=== PATIENT | male | born 1935 | race Caucasian/White ===

== ENCOUNTER 2016-09-03 09:58 | Outpatient (RCR) | payer MEDICARE ==
--- OUTSIDE RECORDS SUMMARY | 2016-08-27 09:27 | XMS REPORT | Continuity of Care Document ---
Author Author [facility] Organization [facility] Address Unknown Phone Unavailable Care Team Providers Care Healthcare Interpreter Name Role Phone ARIA RAYMUNDO MD PCP Insurance Providers Payer Name Policy Number Subscriber Name Relationship Wps Medicare [id number] Justin English W 18 Self / Same As Patient [employer] [place] Supp [id number] Justin English W 18 Self / Same As Patient Problems No known problems or medical conditions. Medications No known medications. Social History Social History Problem Response Recorded Date/Time Recent Foreign Travel N SEE MIMI 09/27/2014 8:22am Hospital Discharge Instructions No hospital discharge instructions. Plan of Care No plan of care. Functional Status No functional status results. Allergies, Adverse Reactions, Alerts No known allergies. Immunizations No immunization records. Vital Signs No known vital signs results. Results Laboratory Results Test Name Result Units Flags Reference Collection Date/Time Result Date/ Time Comments White Blood Count 6.2 10^3/uL 4.3-11.0 09/27/2014 8:45am 09/27/2014 8: 59am Red Blood Count 5.30 10^6/uL 4.35-5.85 09/27/2014 8:45am 09/27/2014 8: 59am Hemoglobin 16.6 G/DL 13.3-17.7 09/27/2014 8:45am 09/27/2014 8:59am Hematocrit 49 % 40-54 09/27/2014 8:45am 09/27/2014 8:59am Mean Corpuscular Volume 92 FL 80-99 09/27/2014 8:45am 09/27/2014 8: 59am Mean Corpuscular Hemoglobin 31 PG 25-34 09/27/2014 8:45am 09/27/2014 8: 59am Mean Corpuscular Hemoglobin Concent 34 G/DL 32-36 09/27/2014 8:45am 04/2014 8:59am Red Cell Distribution Width 13.2 % 10.0-14.5 09/27/2014 8:45am 2013 8:59am Platelet Count 228 10^3/uL 130-400 09/27/2014 8:45am 09/27/2014 8:59am Mean Platelet Volume 9.0 FL 7.4-10.4 09/27/2014 8:45am 09/27/2014 8: 59am Neutrophils (%) (Auto) 67 % 42-75 09/27/2014 8:45am 09/27/2014 8:59am Lymphocytes (%) (Auto) 19 % 12-44 09/27/2014 8:45am 09/27/2014 8:59am Monocytes (%) (Auto) 11 % 0-12 09/27/2014 8:45am 09/27/2014 8:59am Eosinophils (%) (Auto) 3 % 0-10 09/27/2014 8:45am 09/27/2014 8:59am Basophils (%) (Auto) 1 % 0-10 09/27/2014 8:45am 09/27/2014 8:59am Neutrophils # (Auto) 4.1 X 10^3 1.8-7.8 09/27/2014 8:45am 09/27/2014 8: 59am Lymphocytes # (Auto) 1.2 X 10^3 1.0-4.0 09/27/2014 8:45am 09/27/2014 8: 59am Monocytes # (Auto) 0.7 X 10^3 0.0-1.0 09/27/2014 8:45am 09/27/2014 8: 59am Eosinophils # (Auto) 0.2 10^3/uL 0.0-0.3 09/27/2014 8:45am 09/27/2014 8 :59am Basophils # (Auto) 0.0 10^3/uL 0.0-0.1 09/27/2014 8:45am 09/27/2014 8: 59am Sodium Level 142 MMOL/L 135-145 10/25/2014 9:38am 10/25/2014 10:08am Potassium Level 4.1 MMOL/L 3.6-5.0 10/25/2014 9:38am 10/25/2014 10: 08am Chloride Level 104 MMOL/L 98-107 10/25/2014 9:38am 10/25/2014 10:08am Carbon Dioxide Level 30 MMOL/L 21-32 10/25/2014 9:38am 10/25/2014 10: 08am Blood Urea Nitrogen 12 MG/DL 7-18 10/25/2014 9:38am 10/25/2014 10:08am Creatinine 0.96 MG/DL 0.60-1.30 10/25/2014 9:38am 10/25/2014 10:08am BUN/Creatinine Ratio 13 10/25/2014 9:38am 10/25/2014 10:08am Estimat Glomerular Filtration Rate > 60 10/25/2014 9:38am 2013 10:08am GFR INTERPRETIVE DATA UNITS FOR ESTIMATED GFR (eGFR): mL/min/1.73 M2 REFERENCE RANGE FOR ESTIMATED GFR (eGFR) eGFR NORMAL eGFR >60 MODERATELY DECREASED eGFR 30-59 SEVERLY DECREASED eGFR 15-29 KIDNEY FAILURE <15 (OR DIALYSIS) Glucose Level 164 MG/DL H 70-105 10/25/2014 9:38am 10/25/2014 10:08am Calcium Level 9.2 MG/DL 8.5-10.1 10/25/2014 9:38am 10/25/2014 10:08am Total Bilirubin 0.9 MG/DL 0.1-1.0 10/25/2014 9:38am 10/25/2014 10:08am Alkaline Phosphatase 71 U/L 40-136 10/25/2014 9:38am 10/25/2014 10: 08am Aspartate Amino Transf (AST/SGOT) 24 U/L 5-34 10/25/2014 9:38am 2013 10:08am Alanine Aminotransferase (ALT/SGPT) 28 U/L 0-55 10/25/2014 9:38am 10/25 10:08am Total Protein 6.9 G/DL 6.4-8.2 10/25/2014 9:38am 10/25/2014 10:08am Albumin 4.0 G/DL 3.2-4.5 10/25/2014 9:38am 10/25/2014 10:08am Ferritin 90 NG/ML 25-300 09/27/2014 8:45am 09/28/2014 4:04pm Procedures No known history of procedures. Encounters Encounter Location Date/Time Discharged Recurring Via [facility] 10/25/14 9:28am
[2016-08-27 09:45] LABS: BASOPHILS % (AUTO) 1 % (0-10); EOSINOPHILS # (AUTO) 0.1 10^3/uL (0.0-0.3); EOSINOPHILS % (AUTO) 2 % (0-10); LYMPHOCYTES # (AUTO) 1.1 X 10^3 (1.0-4.0); LYMPHOCYTES % (AUTO) 17 % (12-44); MEAN CORPUSCULAR HEMOGLOBIN 32 PG (25-34); MEAN CORPUSCULAR HGB CONC 35 G/DL (32-36); MEAN CORPUSCULAR VOLUME 91 FL (80-99); MEAN PLATELET VOLUME 8.9 FL (7.4-10.4); MONOCYTES # (AUTO) 0.6 X 10^3 (0.0-1.0); MONOCYTES % (AUTO) 9 % (0-12); NEUTROPHILS # (AUTO) 4.7 X 10^3 (1.8-7.8); NEUTROPHILS % (AUTO) 71 % (42-75); PLATELET COUNT 226 10^3/uL (130-400); RED BLOOD COUNT 5.06 10^6/uL (4.35-5.85); WHITE BLOOD COUNT 6.6 10^3/uL (4.3-11.0)
[2016-08-27 10:41] LABS: ALANINE AMINOTRANSFERASE 30 U/L (0-55); ALBUMIN 4.4 G/DL (3.2-4.5); ANION GAP 11 MMOL/L (5-14); ASPARTATE AMINO TRANSFERASE 23 U/L (5-34); BILIRUBIN,TOTAL 1.4 MG/DL (0.1-1.0); BLOOD UREA NITROGEN 15 MG/DL (7-18); BUN/CREATININE RATIO 16; CALCIUM 9.3 MG/DL (8.5-10.1); CARBON DIOXIDE 20 MMOL/L (21-32); CHLORIDE 109 MMOL/L (98-107); CREATININE SERUM 0.93 MG/DL (0.60-1.30); GFR ESTIMATED > 60; GLUCOSE 132 MG/DL (70-105); SODIUM 140 MMOL/L (135-145); TOTAL PROTEIN 7.2 G/DL (6.4-8.2)
== END 2016-11-25 | disposition home or self-care (01) ==
LOC: ONC 09:58
PROVIDERS: ATTEND Internal Medicine Hematology & Oncology
DX: E83.119 Hemochromatosis, unspecified (principal)
CPT/HCPCS: 80053; 82728; 85025; 99195; 99213

== ENCOUNTER 2017-03-04 09:53 | Outpatient (RCR) | payer MEDICARE ==
[2017-02-25 09:33] LABS: BASOPHILS % (AUTO) 1 % (0-10); EOSINOPHILS # (AUTO) 0.2 10^3/uL (0.0-0.3); EOSINOPHILS % (AUTO) 3 % (0-10); LYMPHOCYTES # (AUTO) 1.3 X 10^3 (1.0-4.0); LYMPHOCYTES % (AUTO) 21 % (12-44); MEAN CORPUSCULAR HEMOGLOBIN 32 PG (25-34); MEAN CORPUSCULAR HGB CONC 35 G/DL (32-36); MEAN CORPUSCULAR VOLUME 92 FL (80-99); MEAN PLATELET VOLUME 9.2 FL (7.4-10.4); MONOCYTES # (AUTO) 0.7 X 10^3 (0.0-1.0); MONOCYTES % (AUTO) 10 % (0-12); NEUTROPHILS # (AUTO) 4.1 X 10^3 (1.8-7.8); NEUTROPHILS % (AUTO) 65 % (42-75); PLATELET COUNT 221 10^3/uL (130-400); RED BLOOD COUNT 5.31 10^6/uL (4.35-5.85); RED CELL DISTRIBUTION WIDTH 13.5 % (10.0-14.5); WHITE BLOOD COUNT 6.4 10^3/uL (4.3-11.0)
[2017-02-25 10:16] LABS: ALANINE AMINOTRANSFERASE 28 U/L (0-55); ALBUMIN 4.3 G/DL (3.2-4.5); ANION GAP 8 MMOL/L (5-14); ASPARTATE AMINO TRANSFERASE 24 U/L (5-34); BILIRUBIN,TOTAL 1.2 MG/DL (0.1-1.0); BLOOD UREA NITROGEN 18 MG/DL (7-18); BUN/CREATININE RATIO 19; CALCIUM 9.2 MG/DL (8.5-10.1); CARBON DIOXIDE 26 MMOL/L (21-32); CHLORIDE 107 MMOL/L (98-107); CREATININE SERUM 0.94 MG/DL (0.60-1.30); GFR ESTIMATED > 60; GLUCOSE 136 MG/DL (70-105); POTASSIUM 4.3 MMOL/L (3.6-5.0); SODIUM 141 MMOL/L (135-145); TOTAL PROTEIN 7.3 G/DL (6.4-8.2)
== END 2017-05-26 | disposition home or self-care (01) ==
LOC: ONC 09:53
PROVIDERS: ATTEND Internal Medicine Hematology & Oncology
DX: E83.119 Hemochromatosis, unspecified (principal)
CPT/HCPCS: 36415; 80053; 82728; 85025; 99195; 99213

== ENCOUNTER → 2017-08-26 | Outpatient (CLI) | payer MEDICARE ==
[2017-08-26 09:50] LABS: THYROID STIMULATING HORMONE 2.01 UIU/ML (0.35-4.94)
== END ==
LOC: ONC 08:54
PROVIDERS: ATTEND Family Medicine
DX: Z79.899 Other long term (current) drug therapy; I10 Essential (primary) hypertension; E83.119 Hemochromatosis, unspecified
CPT/HCPCS: 80061; 83036; 84443

== ENCOUNTER 2017-09-02 10:45 | Outpatient (RCR) | payer MEDICARE ==
[2017-08-26 09:07] LABS: BASOPHILS # (AUTO) 0.1 10^3/uL (0.0-0.1); BASOPHILS % (AUTO) 1 % (0-10); EOSINOPHILS # (AUTO) 0.3 10^3/uL (0.0-0.3); EOSINOPHILS % (AUTO) 3 % (0-10); HEMATOCRIT 46 % (40-54); HEMOGLOBIN 15.6 G/DL (13.3-17.7); LYMPHOCYTES # (AUTO) 1.1 X 10^3 (1.0-4.0); LYMPHOCYTES % (AUTO) 13 % (12-44); MEAN CORPUSCULAR HEMOGLOBIN 31 PG (25-34); MEAN CORPUSCULAR HGB CONC 34 G/DL (32-36); MEAN CORPUSCULAR VOLUME 92 FL (80-99); MEAN PLATELET VOLUME 9.1 FL (7.4-10.4); MONOCYTES # (AUTO) 0.7 X 10^3 (0.0-1.0); MONOCYTES % (AUTO) 8 % (0-12); NEUTROPHILS # (AUTO) 6.5 X 10^3 (1.8-7.8); NEUTROPHILS % (AUTO) 75 % (42-75); PLATELET COUNT 257 10^3/uL (130-400); RED CELL DISTRIBUTION WIDTH 12.7 % (10.0-14.5); WHITE BLOOD COUNT 8.6 10^3/uL (4.3-11.0)
[2017-08-26 09:31] LABS: ALANINE AMINOTRANSFERASE 22 U/L (0-55); ALBUMIN 4.1 GM/DL (3.2-4.5); ALKALINE PHOSPHATASE 106 U/L (40-136); BUN/CREATININE RATIO 16; CALCIUM 9.3 MG/DL (8.5-10.1); CARBON DIOXIDE 26 MMOL/L (21-32); CHLORIDE 106 MMOL/L (98-107); CREATININE SERUM 0.92 MG/DL (0.60-1.30); GFR ESTIMATED > 60; GLUCOSE 146 MG/DL (70-105); SODIUM 140 MMOL/L (135-145); TOTAL PROTEIN 7.9 GM/DL (6.4-8.2)
== END 2017-11-24 | disposition home or self-care (01) ==
LOC: ONC 10:45
PROVIDERS: ATTEND Internal Medicine Hematology & Oncology
DX: E83.119 Hemochromatosis, unspecified (principal)
CPT/HCPCS: 36415; 80053; 82728; 85025; 99195

== ENCOUNTER → 2018-02-24 | Outpatient (CLI) | payer MEDICARE | LOC: LAB 09:09 | PROVIDERS: ATTEND Family Medicine | DX: E03.9 Hypothyroidism, unspecified (principal); R73.09 Other abnormal glucose | CPT/HCPCS: 36415; 83036; 84443 ==

== ENCOUNTER 2018-03-03 09:47 | Outpatient (RCR) | payer MEDICARE ==
[2018-02-24 10:17] LABS: BASOPHILS # (AUTO) 0.1 10^3/uL (0.0-0.1); BASOPHILS % (AUTO) 1 % (0-10); EOSINOPHILS # (AUTO) 0.2 10^3/uL (0.0-0.3); EOSINOPHILS % (AUTO) 3 % (0-10); HEMATOCRIT 47 % (40-54); HEMOGLOBIN 16.3 G/DL (13.3-17.7); LYMPHOCYTES # (AUTO) 1.2 X 10^3 (1.0-4.0); LYMPHOCYTES % (AUTO) 17 % (12-44); MEAN CORPUSCULAR HEMOGLOBIN 32 PG (25-34); MEAN CORPUSCULAR HGB CONC 35 G/DL (32-36); MEAN CORPUSCULAR VOLUME 92 FL (80-99); MEAN PLATELET VOLUME 9.5 FL (7.4-10.4); MONOCYTES # (AUTO) 0.7 X 10^3 (0.0-1.0); MONOCYTES % (AUTO) 9 % (0-12); NEUTROPHILS # (AUTO) 4.9 X 10^3 (1.8-7.8); NEUTROPHILS % (AUTO) 70 % (42-75); PLATELET COUNT 240 10^3/uL (130-400); RED BLOOD COUNT 5.06 10^6/uL (4.35-5.85); RED CELL DISTRIBUTION WIDTH 12.7 % (10.0-14.5); WHITE BLOOD COUNT 6.9 10^3/uL (4.3-11.0)
[2018-02-24 10:44] LABS: ALANINE AMINOTRANSFERASE 24 U/L (0-55); ALBUMIN 4.4 GM/DL (3.2-4.5); ALKALINE PHOSPHATASE 84 U/L (40-136); BUN/CREATININE RATIO 15; CALCIUM 9.5 MG/DL (8.5-10.1); CARBON DIOXIDE 24 MMOL/L (21-32); CHLORIDE 107 MMOL/L (98-107); CREATININE SERUM 0.84 MG/DL (0.60-1.30); GFR ESTIMATED > 60; GLUCOSE 142 MG/DL (70-105); POTASSIUM 4.1 MMOL/L (3.6-5.0); SODIUM 141 MMOL/L (135-145); TOTAL PROTEIN 7.6 GM/DL (6.4-8.2)
== END 2018-05-25 | disposition home or self-care (01) ==
LOC: ONC 09:47
PROVIDERS: ATTEND Internal Medicine Hematology & Oncology
DX: E83.119 Hemochromatosis, unspecified (principal)
CPT/HCPCS: 36415; 80053; 82728; 85025; 99213

== ENCOUNTER 2018-09-08 09:57 | Outpatient (RCR) | payer MEDICARE ==
[2018-09-01 09:16] LABS: BASOPHILS # (AUTO) 0.1 10^3/uL (0.0-0.1); BASOPHILS % (AUTO) 1 % (0-10); EOSINOPHILS # (AUTO) 0.2 10^3/uL (0.0-0.3); EOSINOPHILS % (AUTO) 3 % (0-10); HEMATOCRIT 45 % (40-54); HEMOGLOBIN 15.5 G/DL (13.3-17.7); LYMPHOCYTES # (AUTO) 1.2 X 10^3 (1.0-4.0); LYMPHOCYTES % (AUTO) 17 % (12-44); MEAN CORPUSCULAR HEMOGLOBIN 32 PG (25-34); MEAN CORPUSCULAR HGB CONC 35 G/DL (32-36); MEAN CORPUSCULAR VOLUME 92 FL (80-99); MEAN PLATELET VOLUME 8.8 FL (7.4-10.4); MONOCYTES # (AUTO) 0.7 X 10^3 (0.0-1.0); MONOCYTES % (AUTO) 10 % (0-12); NEUTROPHILS # (AUTO) 4.7 X 10^3 (1.8-7.8); NEUTROPHILS % (AUTO) 70 % (42-75); PLATELET COUNT 248 10^3/uL (130-400); RED BLOOD COUNT 4.86 10^6/uL (4.35-5.85); RED CELL DISTRIBUTION WIDTH 12.8 % (10.0-14.5); WHITE BLOOD COUNT 6.8 10^3/uL (4.3-11.0)
[2018-09-01 09:40] LABS: ALANINE AMINOTRANSFERASE 19 U/L (0-55); ALBUMIN 4.4 GM/DL (3.2-4.5); ALKALINE PHOSPHATASE 87 U/L (40-136); BILIRUBIN,TOTAL 1.1 MG/DL (0.1-1.0); BUN/CREATININE RATIO 18; CALCIUM 9.3 MG/DL (8.5-10.1); CARBON DIOXIDE 23 MMOL/L (21-32); CHLORIDE 107 MMOL/L (98-107); CREATININE SERUM 0.84 MG/DL (0.60-1.30); GFR ESTIMATED > 60; GLUCOSE 128 MG/DL (70-105); POTASSIUM 3.8 MMOL/L (3.6-5.0); SODIUM 140 MMOL/L (135-145); TOTAL PROTEIN 7.6 GM/DL (6.4-8.2)
== END 2018-11-30 | disposition home or self-care (01) ==
LOC: ONC 09:57
PROVIDERS: ATTEND Internal Medicine Hematology & Oncology
DX: E83.110 Hereditary hemochromatosis (principal); I10 Essential (primary) hypertension; E78.00 Pure hypercholesterolemia, unspecified; E11.9 Type 2 diabetes mellitus without complications; K58.9 Irritable bowel syndrome, unspecified; M19.91 Primary osteoarthritis, unspecified site; Z79.899 Other long term (current) drug therapy; Z79.84 Long term (current) use of oral hypoglycemic drugs
CPT/HCPCS: 36415; 80053; 82728; 85025

== ENCOUNTER 2019-04-03 09:51 | Outpatient (RCR) | payer MEDICARE ==
[2019-03-02 08:50] LABS: BASOPHILS % (AUTO) 1 % (0-10); EOSINOPHILS # (AUTO) 0.2 10^3/uL (0.0-0.3); EOSINOPHILS % (AUTO) 3 % (0-10); HEMATOCRIT 47 % (40-54); HEMOGLOBIN 16.1 G/DL (13.3-17.7); LYMPHOCYTES # (AUTO) 1.2 X 10^3 (1.0-4.0); LYMPHOCYTES % (AUTO) 20 % (12-44); MEAN CORPUSCULAR HEMOGLOBIN 32 PG (25-34); MEAN CORPUSCULAR HGB CONC 35 G/DL (32-36); MEAN CORPUSCULAR VOLUME 92 FL (80-99); MEAN PLATELET VOLUME 9.3 FL (7.4-10.4); MONOCYTES # (AUTO) 0.6 X 10^3 (0.0-1.0); MONOCYTES % (AUTO) 10 % (0-12); NEUTROPHILS # (AUTO) 4.1 X 10^3 (1.8-7.8); NEUTROPHILS % (AUTO) 68 % (42-75); PLATELET COUNT 224 10^3/uL (130-400); RED CELL DISTRIBUTION WIDTH 13.1 % (10.0-14.5); WHITE BLOOD COUNT 6.1 10^3/uL (4.3-11.0)
[2019-03-02 09:10] LABS: ALANINE AMINOTRANSFERASE 19 U/L (0-55); ALKALINE PHOSPHATASE 94 U/L (40-136); BILIRUBIN,TOTAL 1.3 MG/DL (0.1-1.0); BUN/CREATININE RATIO 20; CALCIUM 9.5 MG/DL (8.5-10.1); CARBON DIOXIDE 23 MMOL/L (21-32); CHLORIDE 107 MMOL/L (98-107); CREATININE SERUM 0.87 MG/DL (0.60-1.30); GFR ESTIMATED > 60; GLUCOSE 141 MG/DL (70-105); POTASSIUM 4.1 MMOL/L (3.6-5.0); SODIUM 138 MMOL/L (135-145); TOTAL PROTEIN 7.3 GM/DL (6.4-8.2)
[2019-03-02 09:11] LABS: ALBUMIN 4.4 GM/DL (3.2-4.5)
== END 2019-05-31 | disposition home or self-care (01) ==
LOC: ONC 09:51
PROVIDERS: ATTEND Internal Medicine Hematology & Oncology
DX: E83.110 Hereditary hemochromatosis (principal); I10 Essential (primary) hypertension; E78.00 Pure hypercholesterolemia, unspecified; E11.9 Type 2 diabetes mellitus without complications; K58.9 Irritable bowel syndrome, unspecified; M19.91 Primary osteoarthritis, unspecified site; Z79.899 Other long term (current) drug therapy; Z79.84 Long term (current) use of oral hypoglycemic drugs
CPT/HCPCS: 36415; 80053; 82728; 85025; 99195

== ENCOUNTER 2019-09-19 20:01 | Inpatient (IN) | payer MEDICARE ==
[~2019-09-19] VITALS: Ht 172.7 cm; Wt 61.2 kg
[2019-09-19] MEDS ORDERED: NS IV 500 ML 500 ML IV ONE (20:10)
--- NOTE | 2019-09-19 20:14 | ED Abdominal Pain ---
General Stated Complaint: ABD PAIN Source of Information: Patient, EMS, Family (And Son-In-Law) Exam Limitations: No Limitations History of Present Illness Date Seen by Provider: Sep 19, 2019 Time Seen by Provider: 20:05 Initial Comments Patient presents by EMS with chief complaint week intermittent epigastric pain and feeling constipated and then today he said he passed a baseball size black tarry stool. He took some Pepto-Bismol earlier in the week that seemed to help with the pain. Tylenol has not helped much. He takes ibuprofen. He does not use aspirin however because he had a problem with bad acid reflux in the past. He does take Cardizem but is not sure why. He denies a history of irregular heart rate. He is not on any blood thinners. He has never had a scope. No fevers chills history of coronary disease shortness of breath cough. He rates the pain right now about a 7-8 out of 10. EMS reports that on the way over there for lead looked okay. They have not given him anything for pain because he does not want any opiates. Allergies and Home Medications Allergies Coded Allergies: aspirin (Verified Adverse Reaction, Unknown, 09/19/19) Hx of GERD Patient Home Medication List Home Medication List Reviewed: Yes Review of Systems Review of Systems Constitutional: No chills, No diaphoresis EENTM: No Blurred Vision, No Double Vision Respiratory: Denies Cough, Denies Shortness of Air Cardiovascular: See HPI; Denies Chest Pain, Denies Edema, Denies Irregular Heart Rate, Denies Lightheadedness Gastrointestinal: See HPI, Abdominal Pain, Constipated; Denies Diarrhea, Denies Nausea, Denies Poor Fluid Intake, Denies Vomiting Genitourinary: Denies Burning, Denies Discharge Musculoskeletal: No back pain, No joint pain Skin: No pruritus, No rash Past [id number] Hx Patient Social History Alcohol Use: Denies Use Recreational Drug Use: No Smoking Status: Never a Smoker Physical Exam Vital Signs Vital Signs - First Documented 09/19/19 20:02 Temp 35.5 Pulse 100 Resp 20 B/P (MAP) 161/81 (107) Pulse Ox 100 O2 Delivery Room Air Capillary Refill : Height/Weight/BMI Height: '" Weight: lbs. oz. kg; BMI Method: General Appearance: WD/WN, mild distress HEENT: PERRL/EOMI, pharynx normal (oropharynx is mildly dry) Neck: full range of motion, normal inspection Respiratory: chest non-tender, lungs clear, normal breath sounds, no respiratory distress, no accessory muscle use Cardiovascular: normal peripheral pulses, regular rate, rhythm, no edema, tachycardia (100-105) Peripheral Pulses: 2+ Dorsalis Pedis (R), 2+ Left Dors-Pedis (L) Gastrointestinal: normal bowel sounds, soft, tenderness (epigastric region) Extremities: normal range of motion, non-tender, normal capillary refill Progress/Results/Core Measures Results/Orders Lab Results Laboratory Tests Test 09/19/19 20:06 09/19/19 20:10 Range/Units White Blood Count 10.0 4.3-11.0 10^3/uL Red Blood Count 4.18 L 4.35-5.85 10^6/uL Hemoglobin 13.0 L 13.3-17.7 G/DL Hematocrit 38 L 40-54 % Mean Corpuscular Volume 91 80-99 FL Mean Corpuscular Hemoglobin 31 25-34 PG Mean Corpuscular Hemoglobin Concent 34 32-36 G/DL Red Cell Distribution Width 12.4 10.0-14.5 % Platelet Count 371 130-400 10^3/uL Mean Platelet Volume 8.9 7.4-10.4 FL Neutrophils (%) (Auto) 77 H 42-75 % Lymphocytes (%) (Auto) 11 L 12-44 % Monocytes (%) (Auto) 10 0-12 % Eosinophils (%) (Auto) 1 0-10 % Basophils (%) (Auto) 0 0-10 % Neutrophils # (Auto) 7.7 1.8-7.8 X 10^3 Lymphocytes # (Auto) 1.1 1.0-4.0 X 10^3 Monocytes # (Auto) 1.0 0.0-1.0 X 10^3 Eosinophils # (Auto) 0.1 0.0-0.3 10^3/uL Basophils # (Auto) 0.0 0.0-0.1 10^3/uL Sodium Level 140 135-145 MMOL/L Potassium Level 3.5 L 3.6-5.0 MMOL/L Chloride Level 105 98-107 MMOL/L Carbon Dioxide Level 23 21-32 MMOL/L Anion Gap 12 5-14 MMOL/L Blood Urea Nitrogen 11 7-18 MG/DL Creatinine 0.81 0.60-1.30 MG/DL Estimat Glomerular Filtration Rate > 60 BUN/Creatinine Ratio 14 Glucose Level 170 H 70-105 MG/DL Calcium Level 8.0 L 8.5-10.1 MG/DL Corrected Calcium 8.4 L 8.5-10.1 MG/DL Total Bilirubin 0.4 0.1-1.0 MG/DL Aspartate Amino Transf (AST/SGOT) 23 5-34 U/L Alanine Aminotransferase (ALT/SGPT) 23 0-55 U/L Alkaline Phosphatase 99 40-136 U/L Troponin I < 0.028 <0.028 NG/ML Total Protein 6.4 6.4-8.2 GM/DL Albumin 3.5 3.2-4.5 GM/DL Lipase 66 8-78 U/L Urine Color YELLOW Urine Clarity CLEAR Urine pH 7 5-9 Urine Specific Duck 1.010 L 1.016-1.022 Urine Protein NEGATIVE NEGATIVE Urine Glucose (UA) 1+ H NEGATIVE Urine Ketones NEGATIVE NEGATIVE Urine Nitrite NEGATIVE NEGATIVE Urine Bilirubin NEGATIVE NEGATIVE Urine Urobilinogen NORMAL NORMAL MG/DL Urine Leukocyte Esterase 3+ H NEGATIVE Urine RBC (Auto) NEGATIVE NEGATIVE Urine RBC 0-2 /HPF Urine WBC 50-100 H /HPF Urine Squamous Epithelial Cells 2-5 /HPF Urine Crystals NONE /LPF Urine Bacteria FEW H /HPF Urine Casts NONE /LPF Urine Mucus NEGATIVE /LPF Urine Culture Indicated YES My Orders Orders - JODY GILES Ed Iv/Invasive Line Start (09/19/19 20:10) Ns Iv 500 Ml (Sodium Chloride 0.9%) (09/19/19 20:10) Cbc With Automated Diff (09/19/19 20:10) Comprehensive Metabolic Panel (09/19/19 20:10) Troponin I (09/19/19 20:10) Continuous Ekg Monitoring (09/19/19 20:10) Ekg Tracing (09/19/19 20:10) Lipase (09/19/19 20:10) Ua Culture If Indicated (09/19/19 20:10) Ct Abdomen/Pelvis W (09/19/19 20:10) Lidocaine 2% Viscous 15 Ml (Xylocaine Vi (09/19/19 20:15) Antacid Suspension (Mylanta Suspension (09/19/19 20:15) Pantoprazole Injection (Protonix Injecti (09/19/19 20:15) Chest 1 View, Ap/Pa Only (09/19/19 20:16) Iohexol Injection (Omnipaque 350 Mg/Ml 1 (09/19/19 20:30) Received Contrast (Hold Metformin- Contr (09/19/19 20:30) Ns (Ivpb) (Sodium Chloride 0.9% Ivpb Bag (09/19/19 20:30) Urine Culture (09/19/19 20:10) Ceftriaxone For Iv Use (Rocephin For I (09/19/19 21:00) Medications Given in ED Current Medications Medications Dose Ordered Sig/Kun Route Start Time Stop Time Status Last Admin Dose Admin Al Hydrox/Mg Hydrox/Simethicone 30 ml ONCE ONCE PO 09/19/19 20:15 09/19/19 20:16 DC 09/19/19 20:25 30 ML Iohexol 100 ml ONCE ONCE IV 09/19/19 20:30 09/19/19 21:14 DC 09/19/19 21:01 100 ML Lidocaine HCl 15 ml ONCE ONCE PO 09/19/19 20:15 09/19/19 20:16 DC 09/19/19 20:25 15 ML Pantoprazole 40 mg ONCE ONCE IV 09/19/19 20:15 09/19/19 20:16 DC 09/19/19 20:25 40 MG Sodium Chloride 100 ml ONCE ONCE IV 09/19/19 20:30 09/19/19 21:14 DC 09/19/19 21:01 100 ML Sodium Chloride 500 ml @ 0 mls/hr Q0M ONCE IV 09/19/19 20:10 09/19/19 20:13 DC 09/19/19 20:25 500 MLS/HR Vital Signs/I&O 09/19/19 20:02 Temp 35.5 Pulse 100 Resp 20 B/P (MAP) 161/81 (107) Pulse Ox 100 O2 Delivery Room Air Progress Progress Note #1: Time: 20:20 Progress Note Gastritis, peptic ulcer disease, pancreatitis, upper GI bleed. Plan to give him half a liter fluids to start. CT of the abdomen and pelvis with IV contrast. Pantoprazole and a GI cocktail since he does not want opiate medications. Just to help rule out atypical angina we will also obtain an EKG and troponin. If his pain for the past week is cardiac related then he should have a positive troponin. Progress Note #2: Time: 20:51 Progress Note Patient has elevated pyuria suspicious for urinary tract infection. Could also be related to intra-abdominal infectious process. If the CT is normal we'll put him on some Rocephin and Keflex outpatient. He received significant pain reduction with the GI cocktail. He went from a 7-8 down to a 2-3. Strongly suspect gastritis versus peptic ulcer disease. CT to rule out perforated PUD. Lipase normal. Troponin undetectable. EKG unremarkable for acute changes. Patient's vital signs are stable. He does show dip of about 3 mg/dL on his hemoglobin compared to February the same year. Initial ECG Impression Date: Sep 19, 2019 Initial ECG Impression Time: 20:19 Initial ECG Rate: 92 Initial ECG Rhythm: Normal Sinus Initial ECG Intervals: QT (485) Initial ECG Impression: Normal, Nonspecific Changes Initial ECG Comparisson: No Previous ECG Available Comment Right bundle-branch block with no clinically evident ST elevation or depression. Diagnostic Imaging Diagonstic Imaging: Xray Plain Films/CT/US/NM/MRI: chest Comments No acute cardiopulmonary process noted on one view chest x-ray. Reviewed: Reviewed by Me Diagonstic Imaging: CT (with IV contrast) Plain Films/CT/US/NM/MRI: abdomen, pelvis Comments NAME: VIC ENGLISH [facility] REC#: [id number] PT STATUS: REG ER : 1935 PHYSICIAN: JODY GILES MD ADMIT DATE: 09/19/19/ER Draft POSDate of Exam:09/19/19 CT ABDOMEN/PELVIS W PROCEDURE: CT abdomen and pelvis with contrast. TECHNIQUE: Multiple contiguous axial images were obtained through the abdomen and pelvis after administration of intravenous contrast. Auto Exposure Controls were utilized during the CT exam to meet ALARA standards for radiation dose reduction. INDICATION: Upper abdominal pain after eating. FINDINGS: The lung bases are clear. No evidence of hiatal hernia. Esophagus is not distended. The liver appears normal. The gallbladder shows a gallstone measuring approximately 1.5 cm in the fundus. Does appear to be some thickening of the gallbladder with pericholecystic fluid. Bile ducts are not dilated. Pancreas is atrophic. The spleen is normal. The adrenal glands are normal. The kidneys show no evidence of obstruction. There are benign bilateral cortical cysts measuring 2.6 cm on both sides. There is a nonobstructing calculus in lower pole calyx of the left kidney measuring 5 mm. The ureters are not dilated. The bladder is somewhat distended. There are multiple calcifications within the bladder largest measuring approximately 2 cm. There are also multiple calcifications in the prostate. The prostate is enlarged. There is diverticulosis of the sigmoid colon without evidence of acute diverticulitis. There is normal stool and gas pattern. The stomach and small bowel are not distended. No intra-abdominal adenopathy of pathologic size. The aorta and abdominal vessels show good enhancement following IV contrast. Atherosclerotic changes of the aorta without aneurysm or dissection. No bony lesions. IMPRESSION: 1. Findings are suspicious for acute cholecystitis. Clinical correlation. 2. Benign bilateral renal cysts. 3. Diverticulosis of sigmoid colon without diverticulitis. 4. Enlarged prostate with mild distended bladder. There are multiple bladder stones present. Dictated on workstation # [id number] Dict: 09/19/192112 Trans: 09/19/192118 [facility] [id number] Interpreted by: SALVADOR ABBASI MD Electronically signed by: Reviewed: Reviewed by Me Departure Communication (Admissions) Time/Spoke to Admitting Phy: 21:29 Discussed the case with Dr. Juarez, General Surgery. He would like to admit the patient pain meds, nothing by mouth, fluids, pantoprazole and medical consult in the morning. He is okay with Rocephin for covering gallbladder and urinary bladder. Impression Primary Impression: Cholecystitis, acute Additional Impression: Upper GI bleed Disposition: ADMITTED INPATIENT Condition: Stable Admissions Decision to Admit Reason: Admit from ER (General) Decision to Admit/Date: Sep 19, 2019 Time/Decision to Admit Time: 21:30 Departure-Patient Inst. Referrals: ARIA RAYMUNDO MD (PCP/Family) Primary Care Physician JODY GILES Sep 19, 2019 20:14 POS
[2019-09-19] MEDS ORDERED: LIDOCAINE 2% VISCOUS 15 ML UDC PO ONE (20:15)
[2019-09-19] MEDS ORDERED: ANTACID SUSP 30 ML UDC (MYLANTA) PO ONE (20:15)
[2019-09-19] MEDS ORDERED: PANTOPRAZOLE 40 MG (PROTONIX) VIAL IV ONE (20:15)
[2019-09-19 20:19] LABS: BILIRUBIN,URINE NEGATIVE (NEGATIVE); CLARITY,URINE CLEAR; COLOR,URINE YELLOW; GLUCOSE, URINE (UA) 1+ (NEGATIVE); KETONES,URINE NEGATIVE (NEGATIVE); LEUKOCYTE ESTERASE ,URINE 3+ (NEGATIVE); NITRITE,URINE NEGATIVE (NEGATIVE); PH,URINE 7 (5-9); PROTEIN,URINE NEGATIVE (NEGATIVE)
[2019-09-19 20:27] LABS: BACTERIA,URINE FEW /HPF; RBC,URINE 0-2 /HPF; WBC,URINE 50-100 /HPF
[2019-09-19] MEDS ORDERED: NS 100 ML (IVPB) BAG IV ONE (20:30)
[2019-09-19] MEDS ORDERED: HOLD METFORMIN - RECEIVED CONTRAST 20 ML VIAL IV SCH (20:30)
[2019-09-19] MEDS ORDERED: IOHEXOL 350 MG/ML 100 ML (OMNIPAQUE 350) VIAL IV ONE (20:30)
[2019-09-19 20:33] LABS: ALANINE AMINOTRANSFERASE 23 U/L (0-55); ALBUMIN 3.5 GM/DL (3.2-4.5); ALKALINE PHOSPHATASE 99 U/L (40-136); BILIRUBIN,TOTAL 0.4 MG/DL (0.1-1.0); BUN/CREATININE RATIO 14; CARBON DIOXIDE 23 MMOL/L (21-32); CHLORIDE 105 MMOL/L (98-107); CREATININE SERUM 0.81 MG/DL (0.60-1.30); GFR ESTIMATED > 60; GLUCOSE 170 MG/DL (70-105); LIPASE 66 U/L (8-78); POTASSIUM 3.5 MMOL/L (3.6-5.0); SODIUM 140 MMOL/L (135-145); TOTAL PROTEIN 6.4 GM/DL (6.4-8.2)
[2019-09-19 20:42] LABS: BASOPHILS % (AUTO) 0 % (0-10); EOSINOPHILS # (AUTO) 0.1 10^3/uL (0.0-0.3); EOSINOPHILS % (AUTO) 1 % (0-10); HEMATOCRIT 38 % (40-54); LYMPHOCYTES # (AUTO) 1.1 X 10^3 (1.0-4.0); LYMPHOCYTES % (AUTO) 11 % (12-44); MEAN CORPUSCULAR HEMOGLOBIN 31 PG (25-34); MEAN CORPUSCULAR HGB CONC 34 G/DL (32-36); MEAN CORPUSCULAR VOLUME 91 FL (80-99); MEAN PLATELET VOLUME 8.9 FL (7.4-10.4); MONOCYTES % (AUTO) 10 % (0-12); NEUTROPHILS # (AUTO) 7.7 X 10^3 (1.8-7.8); NEUTROPHILS % (AUTO) 77 % (42-75); PLATELET COUNT 371 10^3/uL (130-400); RED CELL DISTRIBUTION WIDTH 12.4 % (10.0-14.5)
[2019-09-19] MEDS ORDERED: cefTRIAXone FOR IV USE 1,000 MG in WATER (STERILE) FOR INJECTION 10 ML IV ONE (21:00)
--- NOTE | 2019-09-19 21:19 | Diagnostic Imaging Report ---
PROCEDURE: CT abdomen and pelvis with contrast. TECHNIQUE: Multiple contiguous axial images were obtained through the abdomen and pelvis after administration of intravenous contrast. Auto Exposure Controls were utilized during the CT exam to meet ALARA standards for radiation dose reduction. INDICATION: Upper abdominal pain after eating. FINDINGS: The lung bases are clear. No evidence of hiatal hernia. Esophagus is not distended. The liver appears normal. The gallbladder shows a gallstone measuring approximately 1.5 cm in the fundus. Does appear to be some thickening of the gallbladder with pericholecystic fluid. Bile ducts are not dilated. Pancreas is atrophic. The spleen is normal. The adrenal glands are normal. The kidneys show no evidence of obstruction. There are benign bilateral cortical cysts measuring 2.6 cm on both sides. There is a nonobstructing calculus in lower pole calyx of the left kidney measuring 5 mm. The ureters are not dilated. The bladder is somewhat distended. There are multiple calcifications within the bladder largest measuring approximately 2 cm. There are also multiple calcifications in the prostate. The prostate is enlarged. There is diverticulosis of the sigmoid colon without evidence of acute diverticulitis. There is normal stool and gas pattern. The stomach and small bowel are not distended. No intra-abdominal adenopathy of pathologic size. The aorta and abdominal vessels show good enhancement following IV contrast. Atherosclerotic changes of the aorta without aneurysm or dissection. No bony lesions. IMPRESSION: 1. Findings are suspicious for acute cholecystitis. Clinical correlation. 2. Benign bilateral renal cysts. 3. Diverticulosis of sigmoid colon without diverticulitis. 4. Enlarged prostate with mild distended bladder. There are multiple bladder stones present. Dictated by: Dictated on workstation # [id number]
--- NOTE | 2019-09-19 21:23 | Diagnostic Imaging Report ---
INDICATION: Chest pain and epigastric pain. FINDINGS: Portable chest. The lungs are well-aerated and clear. There is no air-trapping. The heart is not enlarged. No evidence of hiatal hernia. No pneumothorax or pleural effusion. No bony abnormalities. IMPRESSION: Normal portable chest. Dictated by: Dictated on workstation # [id number]
[2019-09-19] MEDS ORDERED: WATER (STERILE) FOR INJECTION 10 ML ONE (23:00)
[2019-09-19] MEDS ORDERED: cefTRIAXone 1,000 MG IV (ROCEPHIN) VIAL ONE (23:00)
[2019-09-19] MEDS ORDERED: ACETAMINOPHEN 650 MG SUPP (TYLENOL) PR PRN (23:45)
[2019-09-19] MEDS ORDERED: ONDANSETRON 4 MG/2 ML (SDV) Z0FRAN IV PRN (23:45)
[2019-09-20] VITALS (20 sets, daily range): BP systolic 118–163; BP diastolic 57–78
[2019-09-20] MEDS: LACTATED RINGERS 1,000 ML IV SCH ×2 (00:12→15:16)
[2019-09-20] MEDS: LORazepam INJ 2 MG/ML (ATIVAN) VIAL IV PRN (00:14)
[2019-09-20] MEDS: KETOROLAC 15 MG/ML VIAL IV PRN (00:14)
--- NOTE | 2019-09-20 02:44 | NUR ---
pt was admitted to [facility] [id number] from er/ plan is to have lap possible open choley in the am . dr olson is consulted and will be notified in the am.. iv fluids started meds given// call light within reach voided per br cl yellow ambulated sba x1.. no resp distress noted
[2019-09-20 05:11] LABS: BASOPHILS # (AUTO) 0.1 10^3/uL (0.0-0.1); BASOPHILS % (AUTO) 1 % (0-10); EOSINOPHILS # (AUTO) 0.2 10^3/uL (0.0-0.3); EOSINOPHILS % (AUTO) 2 % (0-10); HEMATOCRIT 33 % (40-54); HEMOGLOBIN 11.4 G/DL (13.3-17.7); LYMPHOCYTES # (AUTO) 1.1 X 10^3 (1.0-4.0); LYMPHOCYTES % (AUTO) 17 % (12-44); MEAN CORPUSCULAR HEMOGLOBIN 32 PG (25-34); MEAN CORPUSCULAR HGB CONC 35 G/DL (32-36); MEAN CORPUSCULAR VOLUME 92 FL (80-99); MEAN PLATELET VOLUME 8.4 FL (7.4-10.4); MONOCYTES # (AUTO) 0.9 X 10^3 (0.0-1.0); MONOCYTES % (AUTO) 13 % (0-12); NEUTROPHILS # (AUTO) 4.6 X 10^3 (1.8-7.8); NEUTROPHILS % (AUTO) 68 % (42-75); PLATELET COUNT 311 10^3/uL (130-400); RED CELL DISTRIBUTION WIDTH 12.4 % (10.0-14.5); WHITE BLOOD COUNT 6.8 10^3/uL (4.3-11.0)
[2019-09-20 05:35] LABS: ALANINE AMINOTRANSFERASE 19 U/L (0-55); ALBUMIN 3.2 GM/DL (3.2-4.5); ALKALINE PHOSPHATASE 99 U/L (40-136); BILIRUBIN,TOTAL 0.5 MG/DL (0.1-1.0); BUN/CREATININE RATIO 11; CALCIUM 7.7 MG/DL (8.5-10.1); CARBON DIOXIDE 24 MMOL/L (21-32); CHLORIDE 109 MMOL/L (98-107); GFR ESTIMATED > 60; GLUCOSE 132 MG/DL (70-105); POTASSIUM 3.3 MMOL/L (3.6-5.0); SODIUM 141 MMOL/L (135-145); TOTAL PROTEIN 5.7 GM/DL (6.4-8.2)
[2019-09-20] MEDS: inSUlin ASPART (NovoLOG) 1 UNIT/0.01 ML (CHARGE PER UNIT) SC SCH ×2 (06:32→15:45)
[2019-09-20 07:06] LABS: EOSINOPHILS % (MANUAL) 1 %; LYMPHOCYTES % (MANUAL) 12 %; MONOCYTES % (MANUAL) 12 %; NEUTROPHILS % (MANUAL) 75 %
--- NOTE | 2019-09-20 07:48 | History & Physical-Surgical ---
[facility] 09/20/19 0748: History of Present Illness History of Present Illness Reason for visit/HPI Consult Acute Cholecystitis and Cholelithiasis 84 yo male presented to the ED with epigastric abdominal pain that has been present for "at least a week". The pain comes and goes and at its worse is a 10/10. The pain was relieved after having a bowel movement yesterday morning, but was very intense after eating a bowel of soup yesterday evening. The pain occasionally travels to the Right upper quadrant, and also the LLQ. Patient describe his bowel movement from yesterday as black and tarry. He has had nausea, but no vomiting, fevers or chills. CT report stated acute cholecystitis and diverticulosis. Date of Admission Sep 19, 2019 at 21:40 Date Seen by a Provider: Sep 20, 2019 Time Seen by a Provider: 07:30 I consulted on this patient on 09/20/19 07:43 Attending Physician Kathleen Zheng DO Admitting Physician Grisel Vega MD Consult Allergies and Home Medications Allergies Coded Allergies: aspirin (Verified Adverse Reaction, Unknown, 09/19/19) Hx of GERD Home Medications Diltiazem HCl 240 Mg Cap.er.24h, 240 MG PO DAILY, (Reported) Ibuprofen 200 Mg Tablet, 200 MG PO 0700,1800, (Reported) Metformin HCl 500 Mg Tablet, 500 MG PO DAILY, (Reported) Umeclidinium [place] 62.5 Mcg Blst.w.dev, 1 PUFF INH DAILY, (Reported) Past Urcvhzs-Heepdm-Ejjjnl Hx Patient Social History Alcohol Use: Rarely Uses (1 beer a month) Recreational Drug Use: No Smoking Status: Never a Smoker Recent Foreign Travel: No Contact w/Someone Who Travel: No Recent Infectious Disease Expo: No Recent Hopitalizations: No Immunizations Up To Date Tetanus Booster (TDap): Unknown PED Vaccines UTD: Yes Date of Pneumonia Vaccine: Jul 21, 2018 Date of Influenza Vaccine: Aug 21, 2019 Seasonal Allergies Seasonal Allergies: No Surgeries History of Surgeries: Yes (Hernia Repair) Surgeries: Tonsillectomy Respiratory History of Respiratory Disorde: Yes Respiratory Disorders: Asthma Cardiovascular History of Cardiac Disorders: Yes Cardiac Disorders: Hypertension Neurological History of Neurological Disord: No Reproductive System Hx Reproductive Disorders: No Sexually Transmitted Disease: No HIV/AIDS: No Genitourinary History of Genitourinary Disor: Yes Genitourinary Disorders: Benign Prostatic Hyperpl Gastrointestinal History of Gastrointestinal Di: Yes Gastrointestinal Disorders: Ulcer Musculoskeletal History of Musculoskeletal Dis: No Endocrine History of Endocrine Disorders: Yes Endocrine Disorders: Diabetes, Non-Insulin dep HEENT History of HEENT Disorders: No Cancer History of Cancer: No Psychosocial History of Psychiatric Problem: No Integumentary History of Skin or Integumenta: No Blood Transfusions History of Blood Disorders: Yes Hx of Blood Transfusion Goes to Dr. Sloan for a phlebotomy. Reports that he removes 400 ml of blood each appointment Family Medical History Significant Family History: No Pertinent Family Hx Review of Systems Constitutional: No chills, No fever EENTM: No blurred vision, No double vision Respiratory: No cough, No dyspnea on exertion Cardiovascular: No chest pain, No edema, No palpitations Gastrointestinal: abdominal pain, loss of appetite, nausea; No vomiting Genitourinary: frequency Musculoskeletal: No joint pain, No neck pain Skin: no symptoms reported Psychiatric/Neurological: Denies Headache, Denies Numbness NO history of Bleeding or Bruising Physical Exam Vital Signs Vital Signs - First Documented 09/19/19 20:02 Temp 35.5 Pulse 100 Resp 20 B/P (MAP) 161/81 (107) Pulse Ox 100 O2 Delivery Room Air Capillary Refill : Less Than 3 SecondsLess Than 3 Seconds Height, Weight, BMI Height: '" Weight: lbs. oz. kg; 27.56 BMI Method: General Appearance: No Apparent Distress, WD/WN HEENT: PERRL/EOMI Neck: Normal Inspection, Non Tender, Supple Respiratory: Chest Non Tender, Lungs Clear, Normal Breath Sounds, No Accessory Muscle Use, No Respiratory Distress Cardiovascular: Regular Rate, Rhythm, No Edema, No JVD, No Murmur Gastrointestinal: Non Tender (Recieved Pain Medication), Soft Extremity: Normal Capillary Refill, No Calf Tenderness Neurologic/Psychiatric: Alert, Oriented x3 Comments Radial Pulse 2/4 b/l Data Review Labs Laboratory Tests 09/19/19 20:06: White Blood Count 10.0, Red Blood Count 4.18L, Hemoglobin 13.0L, Hematocrit 38L, Mean Corpuscular Volume 91, Mean Corpuscular Hemoglobin 31, Mean Corpuscular Hemoglobin Concent 34, Red Cell Distribution Width 12.4, Platelet Count 371, Mean Platelet Volume 8.9, Neutrophils (%) (Auto) 77H, Lymphocytes (%) (Auto) 11L , Monocytes (%) (Auto) 10, Eosinophils (%) (Auto) 1, Basophils (%) (Auto) 0, Neutrophils # (Auto) 7.7, Lymphocytes # (Auto) 1.1, Monocytes # (Auto) 1.0, Eo sinophils # (Auto) 0.1, Basophils # (Auto) 0.0, Sodium Level 140, Potassium Level 3.5L, Chloride Level 105, Carbon Dioxide Level 23, Anion Gap 12, Blood Urea Nitrogen 11, Creatinine 0.81, Estimat Glomerular Filtration Rate > 60, BUN/Creatinine Ratio 14, Glucose Level 170H, Calcium Level 8.0L, Corrected Calcium 8.4L, Total Bilirubin 0.4, Aspartate Amino Transf (AST/SGOT) 23, Alanine Aminotransferase (ALT/SGPT) 23, Alkaline Phosphatase 99, Troponin I < 0.028, Total Protein 6.4, Albumin 3.5, Lipase 66 09/19/19 20:10: Urine Color YELLOW, Urine Clarity CLEAR, Urine pH 7, Urine Specific [place] 1.010L, Urine Protein NEGATIVE, Urine Glucose (UA) 1+H, Urine Ketones NEGATIVE, Urine Nitrite NEGATIVE, Urine Bilirubin NEGATIVE, Urine Urobilinogen NORMAL, Urine Leukocyte Esterase 3+H, Urine RBC (Auto) NEGATIVE, Urine RBC 0-2, Urine WBC 50-100H, Urine Squamous Epithelial Cells 2-5, Urine Crystals NONE, Urine Bacteria FEWH, Urine Casts NONE, Urine Mucus NEGATIVE, Urine Culture Indicated YES 09/20/19 04:58: White Blood Count 6.8, Red Blood Count 3.59L, Hemoglobin 11.4L, Hematocrit 33L, Mean Corpuscular Volume 92, Mean Corpuscular Hemoglobin 32, Mean Corpuscular Hemoglobin Concent 35, Red Cell Distribution Width 12.4, Platelet Count 311, Mean Platelet Volume 8.4, Neutrophils (%) (Auto) 68, Lymphocytes (%) (Auto) 17, Monocytes (%) (Auto) 13H, Eosinophils (%) (Auto) 2, Basophils (%) (Auto) 1, Neutrophils # (Auto) 4.6, Lymphocytes # (Auto) 1.1, Monocytes # (Auto) 0.9, Eo sinophils # (Auto) 0.2, Basophils # (Auto) 0.1, Sodium Level 141, Potassium Level 3.3L, Chloride Level 109H, Carbon Dioxide Level 24, Anion Gap 8, Blood Urea Nitrogen 8, Creatinine 0.70, Estimat Glomerular Filtration Rate > 60, BUN/Creatinine Ratio 11, Glucose Level 132H, Calcium Level 7.7L, Corrected Calcium 8.3L, Total Bilirubin 0.5, Aspartate Amino Transf (AST/SGOT) 20, Alanine Aminotransferase (ALT/SGPT) 19, Alkaline Phosphatase 99, Total Protein 5.7L, Albumin 3.2, Neutrophils % (Manual) 75, Lymphocytes % (Manual) 12, Monocytes % (Manual) 12, Eosinophils % (Manual) 1 Assessment/Plan Assessment/Plan Assessment/Plan Cholecystitis and cholelithiasis Melena Abdominal Pain Cholecystectomy Pain management Folllow up for EGD in future Clinical Quality Measures DVT/VTE Risk/Contraindication: Risk Factor Score Per Nursin RFS Level Per Nursing on Admit: 2=Moderate KATHLEEN ZHENG DO 09/20/19 1014: History of Present Illness History of Present Illness Reason for visit/HPI CC epigastric abdominal pain. 84 year old male that has had epigastric abdominal pain for last week. waving fluctuating pain. sometimes moves into right upper quadrant. Patient states was up to 10/10 pain. worse after food. better after some of the medications he's gotten. Also notes has had some darker than normal stools. Gi cocktail last night did help some type of his pain, but not the majority of his pain. Ct scan showing large stone and changes consistent with cholecystitis. Allergies and Home Medications Allergies Coded Allergies: aspirin (Verified Adverse Reaction, Unknown, 09/19/19) Hx of GERD Home Medications Diltiazem HCl 240 Mg Cap.er.24h, 240 MG PO DAILY, (Reported) Ibuprofen 200 Mg Tablet, 200 MG PO 0700,1800, (Reported) Metformin HCl 500 Mg Tablet, 500 MG PO DAILY, (Reported) Umeclidinium [place] 62.5 Mcg Blst.w.dev, 1 PUFF INH DAILY, (Reported) Patient Home Medication List Home Medication List Reviewed: Yes Past Nlnnuei-Qobppg-Bjcobh Hx Patient Social History Alcohol Use: Rarely Uses (1 beer a month) Recreational Drug Use: No Surgeries History of Surgeries: Yes (Hernia Repair) Respiratory History of Respiratory Disorde: Yes Respiratory Disorders: Asthma Cardiovascular History of Cardiac Disorders: Yes Cardiac Disorders: Hypertension Genitourinary Genitourinary Disorders: Benign Prostatic Hyperpl Musculoskeletal History of Musculoskeletal Dis: No Endocrine History of Endocrine Disorders: Yes Endocrine Disorders: Diabetes, Non-Insulin dep HEENT History of HEENT Disorders: No Cancer History of Cancer: No Psychosocial History of Psychiatric Problem: No Blood Transfusions History of Blood Disorders: Yes Family Medical History Significant Family History: No Pertinent Family Hx Review of Systems Constitutional: No chills, No fever EENTM: No blurred vision, No double vision Respiratory: No cough, No dyspnea on exertion Cardiovascular: no symptoms reported Gastrointestinal: abdominal pain (RUQ), loss of appetite, nausea; No vomiting Genitourinary: frequency Musculoskeletal: no symptoms reported Skin: no symptoms reported Psychiatric/Neurological: No Symptoms Reported Physical Exam General Appearance: No Apparent Distress, WD/WN HEENT: PERRL/EOMI Neck: Normal Inspection, Non Tender Respiratory: Chest Non Tender, No Accessory Muscle Use, No Respiratory Distress Cardiovascular: Regular Rate, Rhythm Gastrointestinal: Soft, Tenderness (epigastric) Back: Normal Inspection Extremity: Normal Capillary Refill, No Calf Tenderness Neurologic/Psychiatric: Alert, Oriented x3 Skin: Normal Color, Warm/Dry Lymphatic: No Adenopathy Assessment/Plan Assessment/Plan Admission Diagonsis epigastric abdominal pain symptomatic cholelithiasis cholecystitis GERD Admission Status: Observation Assessment/Plan epigastric abdominal pain symptomatic cholelithiasis cholecystitis GERD npo on Rocephin consult Dr. Vega his primary care doctor Consent for laparoscopic cholecystectomy will start on PPI Likely need EGD at later time. patient understands all risks and benefits of laparoscopic cholecystectomy all other indicated procedures with intraoperative cholangiogram Supervisory-Addendum Brief Verification & Attestation Participated in pt care: history, MDM, physical Personally performed: exam, history, MDM, supervision of care Care discussed with: Medical Student Procedures: n/a Results interpretation: Verified all documentation Verification and Attestation of Medical Student E/M Service A medical student performed and documented this service in my presence. I reviewed and verified all information documented by the medical student and made modifications to such information, when appropriate. I personally performed the physical exam and medical decision making. Kathleen Zheng, Sep 20, 2019,10:24 [facility] Sep 20, 2019 07:48 KATHLEEN GUTIERREZ DO Sep 20, 2019 10:14 POS
--- NOTE | 2019-09-20 08:36 | Consultation ---
History of Present Illness History of Present Illness Patient Consulted On(matthew/time) 09/20/19 08:36 Date Seen by Provider: Sep 20, 2019 Time Seen by Provider: 08:36 Reason for Visit: ABDOMINAL PAIN History of Present Illness PT IS AN 84 Y/O MALE WHO IS WELL KNOWN TO ME FROM CLINIC. HE HAS HISTORY OF HYPERTENSION AND IS USUALLY WELL MANAGED ON HIS HOME REGIMEN. HE REPORTS THAT HE HAS BEEN EXPERIENCING ABDOMINAL PAIN THAT HAS INCREASED IN INTENSITY OVER THE PAST WEEK. HE STATES THAT HE WAS "TRYING TO WAIT IT OUT" BUT THE PAIN WAS SO BAD THAT HE FINALLY "GAVE IN" AND HIS CALLED THE AMBULANCE TO BRING HIM TO THE HOSPITAL. HE WAS EVALUATED IN THE ER, FOUND TO HAVE AN INFLAMED GALLBLADDER AND WAS ADMITTED BY SURGERY FOR CHOLECYSTECTOMY PLANNED FOR THIS MORNING. Allergies and Home Medications Allergies Coded Allergies: aspirin (Verified Adverse Reaction, Unknown, 09/19/19) Hx of GERD Home Medications Diltiazem HCl 240 Mg Cap.er.24h, 240 MG PO DAILY, (Reported) Ibuprofen 200 Mg Tablet, 200 MG PO 0700,1800, (Reported) Metformin HCl 500 Mg Tablet, 500 MG PO DAILY, (Reported) Umeclidinium [place] 62.5 Mcg Blst.w.dev, 1 PUFF INH DAILY, (Reported) Patient Home Medication List Home Medication List Reviewed: Yes Past Cftydbt-Okvxpn-Rojuqb Hx Past Med/Social Hx: Reviewed Nursing Past Med/Soc Hx, Reviewed and Corrections made Patient Social History Alcohol Use: Rarely Uses (1 beer a month) Recreational Drug Use: No Smoking Status: Never a Smoker 2nd Hand Smoke Exposure: No Recent Foreign Travel: No Contact w/Someone Who Travel: No Recent Infectious Disease Expo: No Recent Hopitalizations: No Physical Abuse: No Sexual Abuse: No Mistreated: No Fear: No Immunizations Up To Date Tetanus Booster (TDap): Unknown PED Vaccines UTD: Yes Date of Pneumonia Vaccine: Jul 21, 2018 Date of Influenza Vaccine: Aug 21, 2019 Seasonal Allergies Seasonal Allergies: No Past Medical History Surgeries: Yes (Hernia Repair) Tonsillectomy Respiratory: Yes Asthma Currently Using CPAP: No Currently Using BIPAP: No Cardiac: Yes Hypertension Neurological: No Reproductive Disorders: No Sexually Transmitted Disease: No HIV/AIDS: No Genitourinary: Yes Benign Prostatic Hyperpl Gastrointestinal: Yes Ulcer Musculoskeletal: No Endocrine: Yes Diabetes, Non-Insulin dep HEENT: No Loss of Vision: Denies Hearing Impairment: Denies Cancer: No Psychosocial: No Integumentary: No Blood Disorders: Yes Family Medical History Reviewed Nursing Family Hx Hypertension Review of Systems-General Constitutional: No chills, No fever, No malaise, No weakness EENTM: No hoarseness, No throat pain Respiratory: No cough, No dyspnea on exertion, No short of breath Cardiovascular: No chest pain, No edema, No palpitations Gastrointestinal: abdominal pain (EPIGASTRIC); No constipation, No diarrhea, No nausea, No vomiting Genitourinary: no symptoms reported Musculoskeletal: no symptoms reported Skin: No lesions, No rash Psychiatric/Neurological: Denies Anxiety, Denies Depressed, Denies Weakness All Other Systems Reviewed Negative Unless Noted: Yes Physical Exam-General Problems Physical Exam Vital Signs Vital Signs - First Documented 09/19/19 20:02 Temp 35.5 Pulse 100 Resp 20 B/P (MAP) 161/81 (107) Pulse Ox 100 O2 Delivery Room Air Capillary Refill : Less Than 3 SecondsLess Than 3 Seconds General Appearance: WD/WN, mild distress (DUE TO ABDOMINAL PAIN) Eyes: Bilateral Eye Normal Inspection, Bilateral Eye PERRL, Bilateral Eye EOMI HEENT: PERRL/EOMI, pharynx normal Neck: non-tender, full range of motion, supple, normal inspection Respiratory: chest non-tender, lungs clear, normal breath sounds, no respiratory distress, no accessory muscle use Cardiovascular: regular rate, rhythm, no edema, no murmur Gastrointestinal: normal bowel sounds, soft, no organomegaly, no pulsatile mass, tenderness (IN EPIGASTRIUM) Back: normal inspection, no vertebral tenderness Extremities: normal range of motion, non-tender, normal inspection, no pedal edema, no calf tenderness, normal capillary refill Neurologic/Psychiatric: no motor/sensory deficits, alert, normal mood/affect, oriented x 3 Skin: normal color, warm/dry Lymphatic: no adenopathy Assessment/Plan Assessment/Plan Admission Diagnosis/Plan EPIGASTRIC ABDOMINAL PAIN ACUTE CHOLECYSTITIS HYPERTENSION DIABETES MELLITUS ASTHMA EPIGASTRIC ABDOMINAL PAIN DUE TO ACUTE CHOLECYSTITIS - ADMISSION PER DR. ZHENG, PLANNING ON TAKING PT TO SURGERY TODAY FOR REMOVAL OF GALLBLADDER. HYPERTENSION - HOLD ORAL MEDICATIONS AT THIS TIME. DIABETES MELLITUS - HOLD METFORMIN, CONSIDER RESTARTING ONCE ABLE TO TAKE ORAL MEDICATIONS ASTHMA - MONITOR SYMPTOMS. Admission Status: Inpatient Order (span 2 midnights) Reason for Inpatient Admission: ACUTE CHOLECYSTITIS WITH PLANS FOR REMOVAL TODAY - WILL NEED MONITORING FOR AT LEAST 48 HOURS Clinical Quality Measures DVT/VTE Risk/Contraindication: Risk Factor Score Per Nursin RFS Level Per Nursing on Admit: 2=Moderate ARIA RAYMUNDO MD Sep 20, 2019 08:36 POS
[2019-09-20] MEDS ORDERED: PANTOPRAZOLE 40 MG (PROTONIX) VIAL IV SCH (09:00)
[2019-09-20] MEDS ORDERED: METF-397 PO (09:33)
[2019-09-20] MEDS ORDERED: UMEC62.5 INH (09:33)
[2019-09-20] MEDS ORDERED: IBUP-30 PO (09:33)
[2019-09-20] MEDS ORDERED: DILT240C53 PO (09:33)
--- NOTE | 2019-09-20 09:35 | NUR ---
SPOKE WITH THE PATIENT ABOUT HIS MEDICATIONS. HE LISTED WHAT HE IS TAKING AND I VERIFIED IT WITH THE EXT MED HX. HE STATES HE ALSO TAKES IBU 200MG BID OTC. HE THINKS HE MAY HAVE GOTTEN SAMPLES OF HIS INCRUSE A TIME OR TWO AND THAT MAY BE WHY LEANDRO HAS A PAST DUE FILL DATE.
[2019-09-20] MEDS ORDERED: BUP/EPI 0.5% 1:200,000 (SENSORCAINE) 30 ML VIAL ONE (10:00)
[2019-09-20] MEDS ORDERED: IOPAMIDOL 61% 30 ML (ISOVUE 300) VIAL IV ONE (10:00)
[2019-09-20] MEDS ORDERED: SEVOFLURANE (ULTANE) 15 ML INHAL SOLN ONE ×8 (10:13→13:03)
[2019-09-20] MEDS ORDERED: ONDANSETRON 4 MG/2 ML (SDV) Z0FRAN ONE (10:13)
[2019-09-20] MEDS ORDERED: ROCURONIUM 10 MG/ML 5 ML SYRINGE IV ONE (10:13)
[2019-09-20] MEDS ORDERED: proPOfol 200 MG/20 ML (DIPRIVAN) VIAL IV ONE (10:13)
[2019-09-20] MEDS ORDERED: LIDOCAINE PF 2% 5 ML (XYLOCAINE) VIAL ONE (10:13)
[2019-09-20] MEDS ORDERED: fentaNYL INJECTION 100 MCG/2 ML AMP ONE ×2 (10:13→13:38)
[2019-09-20] MEDS: LACTATED RINGERS 1,000 ML IV PRN ×2 (10:47→12:53)
[2019-09-20] MEDS ORDERED: ceFAZolin INJECTION 1,000 MG ONE (11:12)
--- NOTE | 2019-09-20 12:52 | Diagnostic Imaging Report ---
INDICATION: Fluoroscopy during intraoperative cholangiogram. Fluoroscopy was provided in the OR during intraoperative cholangiogram. 9 seconds of fluoroscopic time was utilized. Images demonstrate contrast being injected via the cystic duct remnant. Intrahepatic and extrahepatic bile ducts are of normal caliber. No filling defects are seen. IMPRESSION: Fluoroscopy during intraoperative cholangiogram. Dictated by: Dictated on workstation # [id number]
[2019-09-20] MEDS ORDERED: NEOSTIGMINE 3 MG/3 ML VIAL ONE (13:03)
[2019-09-20] MEDS ORDERED: GLYCOPYRROLATE 0.2 MG/ML (ROBINUL) 2 ML VIAL ONE (13:03)
[2019-09-20] MEDS ORDERED: BUPIVACAINE 0.5% 30 ML (SENSORCAINE) VIAL ONE (13:33)
--- NOTE | 2019-09-20 13:33 | Diagnostic Imaging Report ---
INDICATION: Open cholecystectomy. TIME OF EXAM: 1:12 p.m. FINDINGS: Portable supine radiograph of the abdomen was obtained. There are surgical clips in the right upper quadrant. Surgical drains overlie the abdomen. NG tube passes below the diaphragm. No unexpected radiopaque foreign objects are identified. IMPRESSION: No unexpected radiopaque foreign bodies are identified. Dictated by: Dictated on workstation # [id number]
[2019-09-20] MEDS ORDERED: morphine INJ 10 MG/ML 1ML (SYR OR VIAL) ONE (13:54)
[2019-09-20] MEDS ORDERED: HYDROmorphone 2 MG/ML VIAL (DILAUDID) IV ONE (14:00)
[2019-09-20] MEDS ORDERED: morphine INJ 10 MG/ML 1ML (SYR OR VIAL) IVP ONE (14:00)
--- NOTE | 2019-09-20 14:02 | NUR ---
DR ZHENG CALLED NEW ORDERS RECEIVED.
[2019-09-20] MEDS ORDERED: HYDROmorphone 2 MG/ML VIAL (DILAUDID) ONE (14:10)
--- NOTE | 2019-09-20 14:29 | Progress Note-Post Operative ---
Post-Operative Progess Note Surgeon (s)/Plate Sensitizer (s) Surgeon KATHLEEN ZHENG DO Plate Sensitizer: Dr. Dow Pre-Operative Diagnosis symptomatic cholelithiasis, cholecystitis Post-Operative Diagnosis perforated dudodenal ulcer sealed by gallbladder cholecystitis cholelithiasis Procedure & Operative Findings Date of Procedure 09/20/19 Procedure Performed/Findings laparoscopic cholecystectomy c cholangiogram open repair of duodenal ulcer with haily patch egd by dr dow Anesthesia Type gen Estimated Blood Loss Estimated blood loss (mL): min Specimens/Packing Specimens Removed gallbladder KATHLEEN ZHENG DO Sep 20, 2019 14:29 POS
--- NOTE | 2019-09-20 14:50 | NUR ---
GAVE HANDOFF REPORT TO JOSH LUGO IN ICU
[2019-09-20] MEDS ORDERED: PIPERACILLIN/TAZO 4.5 GM/NS 100 ML IV NR ×2 (15:00)
[2019-09-20] MEDS: fentaNYL INJECTION 100 MCG/2 ML AMP IV PRN ×2 (15:14→20:11)
[2019-09-20] MEDS: metroNIDAZOLE 500MG/100ML IVPB 100 ML IV SCH ×2 (15:15→23:59)
[2019-09-20] MEDS: PANTOPRAZOLE INJECTION 200 MG in NS (IVPB) 100 ML IV SCH (15:31)
[2019-09-20] MEDS: FLUCONAZOLE 200 MG/100 ML 50 ML, EMPTY IV BAG (PVC) 1 EA IV SCH ×2 (15:31)
[2019-09-20] MEDS: inSUlin ASPART (NovoLOG) 1 UNIT/0.01 ML (CHARGE PER UNIT) SQ SCH (18:34)
--- NOTE | 2019-09-20 19:46 | OPERATIVE REPORT ---
DATE OF SERVICE: 09/20/2019 PREOPERATIVE DIAGNOSIS: Symptomatic cholelithiasis and cholecystitis. POSTOPERATIVE DIAGNOSIS: Perforated duodenal ulcer sealed by the gallbladder, cholecystitis, cholelithiasis. PROCEDURE: Laparoscopic cholecystectomy with cholangiogram, open repair of duodenal ulcer with Terry patch, EGD performed by Dr. Dow. SURGEON: Kathleen Zheng DO APPLE PICKING SUPERVISOR: Dr. Dow, assisted in retraction, dissection and closure. See his dictation for EGD. ANESTHESIA: General. ESTIMATED BLOOD LOSS: Minimal. COMPLICATIONS: None. INDICATIONS: The patient is an 84-year-old male who presented with approximately one week of abdominal pain. CT scan demonstrating cholelithiasis and findings consistent with cholecystitis. The patient was discussed risks and benefits of procedure and wished to proceed with procedure. Consent was signed in the chart. DESCRIPTION OF PROCEDURE: The patient was taken to the operating suite, was prepped and draped in sterile fashion. Timeout was performed. A 12 mm incision was made just above the umbilicus. Cautery was used to dissect down to the fascia, which was then scored and opened. A 0 Vicryl was placed in a [id number] fashion for closure at the end of the case. Balloon trocar was inserted and pneumoperitoneum was achieved. Under direct visualization of the laparoscope, a 5 mm trocar was placed in subxiphoid region and two 5 mm trocars were placed in the right upper quadrant. Gallbladder was grasped, elevated. Significant adhesions present to the neck of the gallbladder with further dissection demonstrating what appeared to be an ulceration, possibly that had sealed up to the gallbladder. This was able to be taken down and there was lot of inflammatory and significant inflammatory changes present around this. Blunt dissection was continued until the cystic duct was able to be dissected around and also the cystic artery as well. Clips were placed on the proximal and distal portion of the cystic artery and clip was placed on the distal portion of the cystic duct. The duct was then partially transected and cholangiogram was performed, which Arrow catheter was inserted into the duct as far as I could and a clip had to be used to hold it in place. Cholangiogram was performed demonstrating no filling defects and contrast making its way into the duodenum. The catheter was removed. Clips were placed on the proximal portion of the cystic duct and the duct and the artery were then transected completely. Hook cautery was used to dissect the gallbladder from the gallbladder fossa achieving hemostasis. Once removed, it was placed in an Endobag and removed through the 12 mm trocar site. The abdomen was then reinspected, copious amounts of irrigation was performed and suctioned. A 5 mm scope was then placed in the subxiphoid trocar reinspecting the duodenal area, try to determine whether this is ulceration or if this is just inflammatory changes this appeared to be more of ulceration; therefore, EGD was performed by Dr. Dow at this time. Please see his dictation. There was an ulceration with perforation determined. Therefore, the abdomen was then opened through a midline incision. The area was irrigated and suctioned. A 3-0 Vicryl suture pop-offs were used to close the defect from the ulceration and a portion of omentum was mobilized and after the ulceration was closed, the omentum was draped between the tails of the sutures and this was then secured down creating Terry patch. A two 19 Jonathan drains were placed, one at the site of perforation and Terry patch. The abdomen was placed in the left gutter. The NG tube was confirmed and placed in the stomach. No other pathology was noted. The fascia was then closed using 1-0 looped PDS in a running fashion. An x-ray was performed demonstrating no foreign objects due to the count. After confirmation, the skin was then closed with tiara. The patient tolerated procedure well without any complications. He was taken to recovery room in stable condition. We will place the patient in ICU postoperatively. Job ID: [id number] DocumentID: [id number] Dictated Date: 09/20/2019 14:37:53 Outer Diameter Grinder Tool Date: 09/20/2019 19:46:06 Dictated By: KATHLEEN ZHENG DO
[2019-09-20] MEDS ORDERED: cefTRIAXone 1,000 MG IV (ROCEPHIN) VIAL ONE ×2 (19:55→19:56)
[2019-09-20] MEDS ORDERED: WATER (STERILE) FOR INJECTION 10 ML ONE (19:56)
[2019-09-20] MEDS ORDERED: cefTRIAXone 1,000 MG/SWFI 10 ML IV PUSH IV SCH ×2 (21:00)
[2019-09-20] MEDS ORDERED: PIPERACILLIN/TAZOBACTAM (BULK) 4.5 GM in NS (IVPB) 100 ML IV SCH (21:00)
--- NOTE | 2019-09-20 23:39 | OPERATIVE REPORT ---
DATE OF SERVICE: PREOPERATIVE DIAGNOSIS: Suspected duodenal perforation. POSTOPERATIVE DIAGNOSIS: Duodenal perforation. PROCEDURE: EGD. SURGEON: Rigoberto Dow DO. LEASING ASSISTANT: None. ANESTHESIA: General endotracheal tube. SPECIMENS: None. BLOOD LOSS: None. FLUIDS: Per anesthesia. POSTOPERATIVE CONDITION: Stable. INDICATION FOR PROCEDURE: The patient is an 84-year-old male whom, I was assisting with a laparoscopic cholecystectomy with Dr. Juarez and while doing this, noted what looked to be a possible duodenal ulceration or ulcer with perforation. FINDINGS: The patient had a large perforation in the first portion of the duodenum. PROCEDURE NOTE: The patient was actually in the operating room getting laparoscopic cholecystectomy performed, needed EGD to confirm possible duodenal perforation. I broke scrub and placed an EGD scope down the mouth through the esophagus into the stomach, could actually see the scope going down the stomach and advanced it through the antrum and then once through the antrum, saw a large opening, pushed the scope through here and actually could see the liver, took a picture of the liver. This confirmed that this was a large duodenal perforation. At this point, then watched the anesthesiologist place an NG tube down into the stomach and then removed the scope. The patient tolerated the procedure and Dr. Juarez finished his second procedure on the patient. Please see his notes for that procedure. Job ID: [id number] DocumentID: [id number] Dictated Date: 09/20/2019 18:38:46 [employer] Date: 09/20/2019 23:39:07 Dictated By: RIGOBERTO DOW DO
[2019-09-21] VITALS (24 sets, daily range): BP systolic 121–168; BP diastolic 56–81
[2019-09-21] MEDS: fentaNYL INJECTION 100 MCG/2 ML AMP IV PRN ×6 (00:01→22:26)
[2019-09-21] MEDS: inSUlin ASPART (NovoLOG) 1 UNIT/0.01 ML (CHARGE PER UNIT) SQ SCH ×5 (00:10→23:59)
[2019-09-21] MEDS: LACTATED RINGERS 1,000 ML IV SCH ×3 (02:39→19:55)
[2019-09-21 03:32] LABS: BASOPHILS % (AUTO) 0 % (0-10); EOSINOPHILS % (AUTO) 0 % (0-10); HEMATOCRIT 37 % (40-54); HEMOGLOBIN 12.2 G/DL (13.3-17.7); LYMPHOCYTES # (AUTO) 0.7 X 10^3 (1.0-4.0); LYMPHOCYTES % (AUTO) 4 % (12-44); MEAN CORPUSCULAR HEMOGLOBIN 31 PG (25-34); MEAN CORPUSCULAR HGB CONC 33 G/DL (32-36); MEAN CORPUSCULAR VOLUME 94 FL (80-99); MEAN PLATELET VOLUME 8.9 FL (7.4-10.4); MONOCYTES # (AUTO) 1.2 X 10^3 (0.0-1.0); MONOCYTES % (AUTO) 7 % (0-12); NEUTROPHILS # (AUTO) 14.1 X 10^3 (1.8-7.8); NEUTROPHILS % (AUTO) 88 % (42-75); PLATELET COUNT 288 10^3/uL (130-400); RED CELL DISTRIBUTION WIDTH 12.8 % (10.0-14.5)
[2019-09-21 03:56] LABS: BUN/CREATININE RATIO 12; CALCIUM 7.5 MG/DL (8.5-10.1); CARBON DIOXIDE 25 MMOL/L (21-32); CHLORIDE 105 MMOL/L (98-107); CREATININE SERUM 0.78 MG/DL (0.60-1.30); GFR ESTIMATED > 60; GLUCOSE 172 MG/DL (70-105); SODIUM 141 MMOL/L (135-145)
--- NOTE | 2019-09-21 04:40 | Pulmonary Consultation ---
History of Present Illness History of Present Illness Date of Consultation 09/21/19 04:34 Time Seen by Provider: 04:34 Date of Admission History of Present Illness 84yo presented to ED secondary to 08/31 epigastric pain. Onset was about 1 wk prior to admission. CT of abdomen was suggestive of acute cholecystitis. Pt is now s/p ex lap cholecystectomy and repair of duodenal perforation. Prior to surgery no leukocytosis or fever. Pt is not requiring oxygen. Pt complains of abdominal pain however controlled with meds. I am consulted for ICU management. Allergies and Home Medications Allergies Coded Allergies: aspirin (Verified Adverse Reaction, Unknown, 09/19/19) Hx of GERD Home Medications Diltiazem HCl 240 Mg Cap.er.24h, 240 MG PO DAILY, (Reported) Ibuprofen 200 Mg Tablet, 200 MG PO 0700,1800, (Reported) Metformin HCl 500 Mg Tablet, 500 MG PO DAILY, (Reported) Umeclidinium [place] 62.5 Mcg Blst.w.dev, 1 PUFF INH DAILY, (Reported) Past Hnscffz-Mjnuqw-Vtjsxr Hx Patient Social History Alcohol Use: Rarely Uses (1 beer a month) Recreational Drug Use: No Smoking Status: Never a Smoker Recent Foreign Travel: No Contact w/Someone Who Travel: No Recent Infectious Disease Expo: No Recent Hopitalizations: No Physical Abuse: No Sexual Abuse: No Mistreated: No Fear: No Immunizations Up To Date Tetanus Booster (TDap): Unknown PED Vaccines UTD: Yes Date of Pneumonia Vaccine: Jul 21, 2018 Date of Influenza Vaccine: Aug 21, 2019 Seasonal Allergies Seasonal Allergies: No Past Medical History Surgeries: Yes (Hernia Repair) Tonsillectomy Respiratory: Yes Asthma Currently Using CPAP: No Currently Using BIPAP: No Cardiac: Yes Hypertension Neurological: No Reproductive Disorders: No Sexually Transmitted Disease: No HIV/AIDS: No Genitourinary: Yes Benign Prostatic Hyperpl Gastrointestinal: Yes Ulcer Musculoskeletal: No Endocrine: Yes Diabetes, Non-Insulin dep HEENT: No Cancer: No Psychosocial: No Integumentary: No Blood Disorders: Yes Family Medical History No Pertinent Family Hx Review of Systems Time Seen by Provider: 07:23 Constitutional: No: Fever, Chills, Sweats, Weakness, Malaise, Other Eyes: No: Pain, Vision change, Conjunctivae inflammation, Eyelid inflammation, Other, Redness ENT: No: Ear pain, Ear discharge, Nose pain, Nose discharge, Nose congestion, Mouth pain, Mouth swelling, Throat pain, Throat swelling, Other Respiratory: No: Cough, Dry, Shortness of breath, SOB with excertion, Wheezing, Hemoptysis, Pleuritic Pain, Sputum, Wheezing, Other Cardiovascular: No: Chest Pain, Palpitations, Orthopnea, Paroxysmal Noc. Dyspnea, Edema, Lt Headedness, Other Gastrointestinal: Abdominal Pain, Constipation, Melena; No: Diarrhea, Hematochezia Genitourinary: No Dysuria, No Frequency, No Incontinence, No Hematuria, No Retention, No Other Musculoskeletal: No: other, neck pain, shoulder pain, arm pain, back pain, hand pain, leg pain, foot pain Sepsis Event Evaluation Height, Weight, BMI Height: '" Weight: lbs. oz. kg; 27.56 BMI Method: Exam Exam Vital Signs Date Time Temp Pulse Resp B/P (MAP) Pulse Ox O2 Delivery O2 Flow Rate FiO2 09/21/19 04:00 89 9 146/76 (99) 94 Room Air 09/21/19 03:38 90 25 133/68 (89) 97 Room Air 09/21/19 03:00 84 31 136/64 (88) 96 OxyMask 1.00 09/21/19 02:00 78 13 121/56 (77) 95 OxyMask 1.00 09/21/19 01:00 84 26 132/65 (87) 96 OxyMask 1.00 09/21/19 01:00 84 09/21/19 00:00 36.4 OxyMask 1.00 09/21/19 00:00 95 OxyMask 1.00 09/21/19 00:00 97 19 155/76 (102) 95 OxyMask 1.00 09/20/19 23:00 80 12 126/61 (82) 95 OxyMask 1.00 09/20/19 22:00 80 25 123/63 (83) 95 OxyMask 1.00 09/20/19 21:00 81 24 118/57 (77) 95 OxyMask 1.00 09/20/19 20:00 82 11 134/62 (86) 95 OxyMask 1.00 09/20/19 20:00 95 OxyMask 1.00 09/20/19 20:00 36.2 OxyMask 1.00 09/20/19 19:00 83 09/20/19 19:00 83 13 148/68 (94) 95 OxyMask 1.00 09/20/19 18:23 OxyMask 1.00 09/20/19 18:00 85 16 124/67 (86) 96 OxyMask 2.00 09/20/19 17:21 OxyMask 2.00 09/20/19 17:00 85 11 123/61 (81) 95 OxyMask 3.00 09/20/19 16:04 96 OxyMask 3.00 09/20/19 16:00 81 7 136/62 (86) 96 OxyMask 3.00 09/20/19 16:00 36.1 09/20/19 15:00 OxyMask 3 09/20/19 15:00 84 29 147/72 (97) 96 OxyMask 3.00 09/20/19 15:00 36.4 20 145/65 (91) 99 OxyMask 3 09/20/19 14:53 79 09/20/19 14:50 20 148/65 (92) 99 OxyMask 3 09/20/19 14:45 OxyMask 3 09/20/19 14:40 20 150/70 (96) 98 OxyMask 3 09/20/19 14:30 20 154/68 (96) 95 OxyMask 3 09/20/19 14:30 OxyMask 3 09/20/19 14:20 20 152/67 (95) 97 OxyMask 3 09/20/19 14:15 OxyMask 5 09/20/19 14:10 20 152/67 (95) 98 OxyMask 5 09/20/19 14:00 OxyMask 10 09/20/19 14:00 20 153/74 (100) 100 OxyMask 5 09/20/19 13:50 20 149/69 (95) 100 OxyMask 10 09/20/19 13:45 OxyMask 10 09/20/19 13:41 OxyMask 10 09/20/19 13:41 36.4 22 163/74 (103) 100 OxyMask 10 09/20/19 11:51 Room Air 09/20/19 08:00 36.5 76 20 138/71 (93) 97 Room Air 09/20/19 08:00 97 Room Air I & O 09/21/19 07:00 Intake Total 290 ml Output Total 1600 ml Balance -1310 ml Height & Weight Height: '" Weight: lbs. oz. kg; 27.56 BMI Method: General Appearance: WD/WN, Anxious, Chronically ill, Mild Distress, Thin HEENT: PERRL/EOMI Neck: Normal Inspection, Non Tender Respiratory: Chest Non Tender, Lungs Clear, No Accessory Muscle Use, No Respiratory Distress Cardiovascular: Regular Rate, Rhythm Capillary Refill: Less Than 3 Seconds Peripheral Pulses: 2+ Dorsalis Pedis (R), 2+ Left Dors-Pedis (L) Gastrointestinal: normal bowel sounds, soft, tenderness (secondary to surgery. ) Extremity: Normal Capillary Refill, No Calf Tenderness, No Pedal Edema Neurologic/Psychiatric: Alert, Oriented x3 Skin: Normal Color, Warm/Dry Lymphatic: No Adenopathy Results Lab Laboratory Tests 09/19/19 20:06 09/20/19 04:58 09/21/19 03:00 Assessment/Plan Assessment/Plan Cholecystitis s/p open Cholecystectomy -Will start incentive spirometry -Surgery following Duodenal perforation s/p repair -Continue Zosyn, Flagyl and Diflucan -D/C Rocephin -Singh cultures are pending -LR currently at 75cc/hr -Currently on Protonix gtt Leukocytosis - reactive vs sepsis -Continue Abx -Await cultures Anemia -Monitor LOIDA KRUEGER DO Sep 21, 2019 04:40 POS
[2019-09-21] MEDS: POTASSIUM CL 10MEQ/50ML IVPB 50 ML IV SCH (05:19)
[2019-09-21] MEDS: KCL 20 MEQ TAB (K-DUR) PO SCH (05:20)
[2019-09-21] MEDS: MAGNESIUM 1 GM/100 ML IVPB 100 ML IV SCH (05:20)
[2019-09-21] MEDS: metroNIDAZOLE 500MG/100ML IVPB 100 ML IV SCH ×3 (06:07→22:26)
[2019-09-21] MEDS: KETOROLAC 15 MG/ML VIAL IV PRN ×2 (06:08→16:22)
--- NOTE | 2019-09-21 07:31 | Diagnostic Imaging Report ---
EXAMINATION: Chest 1 view HISTORY: Cholecystitis FINDINGS: Comparison is 09/19/2019. Skin tiara are seen in the upper abdomen. Gastric tube tip terminates in the stomach. Surgical drains present in the upper abdomen. The lungs are clear. No edema. No pneumonia. No pleural effusion. No pneumothorax. Heart is normal in size. IMPRESSION: 1. Clear lungs. Dictated by: Dictated on workstation # [id number]
--- NOTE | 2019-09-21 08:26 | Progress Note - Surgery ---
[facility] 09/21/19 0826: Subjective Date Seen by a Provider: Sep 21, 2019 Time Seen by a Provider: 07:35 Subjective/Events-last exam Patient states that he feels tired and is currently in pain. States pain is currently a 7 or 8 out of 10. There has been 10 mL of drainage from tube #2 Review of Systems General: No Chills, No Other (fevers) Pulmonary: No Cough Cardiovascular: No: Chest Pain, Palpitations Gastrointestinal: Abdominal Pain; No: Nausea, Vomiting Objective Exam Vital Signs Date Time Temp Pulse Resp B/P (MAP) Pulse Ox O2 Delivery O2 Flow Rate FiO2 09/21/19 08:15 94 Room Air 09/21/19 06:00 81 12 132/68 (89) 93 Room Air 09/21/19 05:00 84 28 121/58 (79) 93 Room Air 09/21/19 04:00 95 OxyMask 1.00 09/21/19 04:00 89 9 146/76 (99) 94 Room Air 09/21/19 04:00 36.7 09/21/19 03:38 90 25 133/68 (89) 97 Room Air 09/21/19 03:00 84 31 136/64 (88) 96 OxyMask 1.00 09/21/19 02:00 78 13 121/56 (77) 95 OxyMask 1.00 09/21/19 01:00 84 26 132/65 (87) 96 OxyMask 1.00 09/21/19 01:00 84 09/21/19 00:00 36.4 OxyMask 1.00 09/21/19 00:00 95 OxyMask 1.00 09/21/19 00:00 97 19 155/76 (102) 95 OxyMask 1.00 09/20/19 23:00 80 12 126/61 (82) 95 OxyMask 1.00 09/20/19 22:00 80 25 123/63 (83) 95 OxyMask 1.00 09/20/19 21:00 81 24 118/57 (77) 95 OxyMask 1.00 09/20/19 20:00 82 11 134/62 (86) 95 OxyMask 1.00 09/20/19 20:00 95 OxyMask 1.00 09/20/19 20:00 36.2 OxyMask 1.00 09/20/19 19:00 83 09/20/19 19:00 83 13 148/68 (94) 95 OxyMask 1.00 09/20/19 18:23 OxyMask 1.00 09/20/19 18:00 85 16 124/67 (86) 96 OxyMask 2.00 09/20/19 17:21 OxyMask 2.00 09/20/19 17:00 85 11 123/61 (81) 95 OxyMask 3.00 09/20/19 16:04 96 OxyMask 3.00 09/20/19 16:00 81 7 136/62 (86) 96 OxyMask 3.00 09/20/19 16:00 36.1 09/20/19 15:00 OxyMask 3 09/20/19 15:00 84 29 147/72 (97) 96 OxyMask 3.00 09/20/19 15:00 36.4 20 145/65 (91) 99 OxyMask 3 09/20/19 14:53 79 09/20/19 14:50 20 148/65 (92) 99 OxyMask 3 09/20/19 14:45 OxyMask 3 09/20/19 14:40 20 150/70 (96) 98 OxyMask 3 09/20/19 14:30 20 154/68 (96) 95 OxyMask 3 09/20/19 14:30 OxyMask 3 09/20/19 14:20 20 152/67 (95) 97 OxyMask 3 09/20/19 14:15 OxyMask 5 09/20/19 14:10 20 152/67 (95) 98 OxyMask 5 09/20/19 14:00 OxyMask 10 09/20/19 14:00 20 153/74 (100) 100 OxyMask 5 09/20/19 13:50 20 149/69 (95) 100 OxyMask 10 09/20/19 13:45 OxyMask 10 09/20/19 13:41 OxyMask 10 09/20/19 13:41 36.4 22 163/74 (103) 100 OxyMask 10 09/20/19 11:51 Room Air I & O 09/21/19 07:00 Intake Total 1510 ml Output Total 1835 ml Balance -325 ml Capillary Refill : Less Than 3 SecondsLess Than 3 Seconds General Appearance: No Apparent Distress, WD/WN Neck: Non Tender, Supple Respiratory: Chest Non Tender, Lungs Clear, No Accessory Muscle Use, No Respiratory Distress Cardiovascular: Regular Rate, Rhythm, No Murmur Peripheral Pulses: 2+ Radial Pulses (R), 2+ Radial Pulses (L) Gastrointestinal: soft, tenderness (secondary to surgery. ) Extremity: No Calf Tenderness Neurologic/Psychiatric: Alert, Normal Mood/Affect, Disoriented (Appears confused about time of day) Skin: Normal Color, Warm/Dry Lymphatic: No Adenopathy Results Lab Laboratory Tests 09/20/19 18:21: Glucometer 166H 09/21/19 00:10: Glucometer 159H 09/21/19 03:00: White Blood Count 16.0H, Red Blood Count 3.90L, Hemoglobin 12.2L, Hematocrit 37L , Mean Corpuscular Volume 94, Mean Corpuscular Hemoglobin 31, Mean Corpuscular Hemoglobin Concent 33, Red Cell Distribution Width 12.8, Platelet Count 288, Mean Platelet Volume 8.9, Neutrophils (%) (Auto) 88H, Lymphocytes (%) (Auto) 4L, Monocytes (%) (Auto) 7, Eosinophils (%) (Auto) 0, Basophils (%) (Auto) 0, Neutrophils # (Auto) 14.1H, Lymphocytes # (Auto) 0.7L, Monocytes # (Auto) 1.2H, Eosinophils # (Auto) 0.0, Basophils # (Auto) 0.0, Sodium Level 141, Potassium Level 4.0, Chloride Level 105, Carbon Dioxide Level 25, Anion Gap 11, Blood Urea Nitrogen 9, Creatinine 0.78, Estimat Glomerular Filtration Rate > 60, BUN/Creatinine Ratio 12, Glucose Level 172H, Calcium Level 7.5L, Phosphorus Level 3.0, Magnesium Level 2.0 Microbiology 09/19/19 Urine Culture - Final, Complete NO GROWTH Assessment/Plan Assessment/Plan Assessment/Plan s/p cholecystectomy and haily patch Continue to monitor vitals. Continue NG tube placement, do not remove or Flush with saline. Pain Control NPO Clinical Quality Measures DVT/VTE Risk/Contraindication: Risk Factor Score Per Nursin RFS Level Per Nursing on Admit: 2=Moderate KATHLEEN JUAREZ DO 09/22/19 1303: Subjective Subjective/Events-last exam Pain that was having is better, now feeling more surgical pain he states. NPO. NG tube in place. Feels a little foggy. Denies any other complaints at this time. No n/v fever sweats chills shortness of breath. Objective Exam General Appearance: No Apparent Distress HEENT: PERRL/EOMI Neck: Non Tender, Supple Respiratory: Chest Non Tender, No Accessory Muscle Use, No Respiratory Distress Cardiovascular: Regular Rate, Rhythm Gastrointestinal: soft, tenderness (incisional) Neurologic/Psychiatric: Alert Skin: Normal Color, Warm/Dry Lymphatic: No Adenopathy Assessment/Plan Assessment/Plan Assessment/Plan s/p lap kareen c ioc and open duodenal ulcer perforation c haily patch. conitnue npo iv hydration NG Tube On Zosyn, Flagyl, Diflucan On Protonix drip. Supervisory-Addendum Brief Verification & Attestation Participated in pt care: history, MDM, physical Personally performed: exam, history, MDM, supervision of care Care discussed with: Medical Student Procedures: n/a Results interpretation: Verified all documentation Verification and Attestation of Medical Student E/M Service A medical student performed and documented this service in my presence. I reviewed and verified all information documented by the medical student and made modifications to such information, when appropriate. I personally performed the physical exam and medical decision making. Kathleen Juarez, Sep 21, 2019,13:03 [facility] Sep 21, 2019 08:26 KATHLEEN GUTIERREZ DO Sep 22, 2019 13:03 POS
[2019-09-21] MEDS: PIPERACILLIN/TAZO 4.5 GM/NS 100 ML IV SCH ×8 (08:27→23:59)
--- NOTE | 2019-09-21 08:32 | Progress Note ---
Subjective Date Seen by a Provider: Sep 21, 2019 Time Seen by a Provider: 08:30 Subjective/Events-last exam PT REPORTS THAT HE IS IN A LOT OF PAIN THIS MORNING. HE STATES THAT HIS STOMACH IS REALLY PAINFUL, BUT HE IS RECEIVING PAIN MEDICATION FOR THE WORST OF THE PAIN. HE DENIES FEELING SHORT OF BREATH, NAUSEA, DIZZINESS, LEG PAIN, CHEST PAIN. Review of Systems General: No Chills; Fatigue; No Malaise HEENT: No Head Aches, No Dysphasia Pulmonary: No Dyspnea, No Cough Cardiovascular: No: Chest Pain, Palpitations Gastrointestinal: Abdominal Pain; No: Nausea Genitourinary: Other (GREEN IN PLACE) Musculoskeletal: No: back pain, leg pain Neurological: Weakness; No: Confusion Objective Exam Last Set of Vital Signs Vital Signs Date Time Temp Pulse Resp B/P (MAP) Pulse Ox O2 Delivery O2 Flow Rate FiO2 09/21/19 08:22 36.8 09/21/19 08:15 94 Room Air 09/21/19 06:00 81 12 132/68 (89) 09/21/19 04:00 1.00 Capillary Refill : Less Than 3 SecondsLess Than 3 Seconds I&O Intake and Output 09/21/19 00:00 Intake Total 290 ml Output Total 1400 ml Balance -1110 ml Intake Oral 0 ml IV Total 290 ml Output Urine Total 1400 ml Drainage Total 0 ml # Voids 4 Daily Weight Change No No General: Alert, Oriented X3, Cooperative, No Acute Distress HEENT: Atraumatic, PERRLA Neck: Supple Lungs: Clear to Auscultation (WITH DECREASED EFFORT DUE TO PAIN) Heart: Regular Rate Abdomen: Other (DECREASED BOWEL SOUNDS - NG TUBE IN PLACE, SURGICAL SITE WITH SMALL AMOUNT OF BLOOD ON DRESSING, SLIGHTLY DISTENDED ABDOMEN) Extremities: No Clubbing, No Cyanosis Skin: No Rashes, No Breakdown Neuro: Normal Speech, Cranial Nerves 3-12 NL Psych/Mental Status: Mental Status NL, Mood NL Results Lab Laboratory Tests 09/20/19 18:21: Glucometer 166H 09/21/19 00:10: Glucometer 159H 09/21/19 03:00: White Blood Count 16.0H, Red Blood Count 3.90L, Hemoglobin 12.2L, Hematocrit 37L , Mean Corpuscular Volume 94, Mean Corpuscular Hemoglobin 31, Mean Corpuscular Hemoglobin Concent 33, Red Cell Distribution Width 12.8, Platelet Count 288, Mean Platelet Volume 8.9, Neutrophils (%) (Auto) 88H, Lymphocytes (%) (Auto) 4L, Monocytes (%) (Auto) 7, Eosinophils (%) (Auto) 0, Basophils (%) (Auto) 0, Neutrophils # (Auto) 14.1H, Lymphocytes # (Auto) 0.7L, Monocytes # (Auto) 1.2H, Eosinophils # (Auto) 0.0, Basophils # (Auto) 0.0, Sodium Level 141, Potassium Level 4.0, Chloride Level 105, Carbon Dioxide Level 25, Anion Gap 11, Blood Urea Nitrogen 9, Creatinine 0.78, Estimat Glomerular Filtration Rate > 60, BUN/Creatinine Ratio 12, Glucose Level 172H, Calcium Level 7.5L, Phosphorus Level 3.0, Magnesium Level 2.0 Microbiology 09/19/19 Urine Culture - Final, Complete NO GROWTH Assessment/Plan Assessment/Plan Assess & Plan/Chief Complaint EPIGASTRIC ABDOMINAL PAIN ACUTE CHOLECYSTITIS DUODENAL ULCER HYPERTENSION DIABETES MELLITUS ASTHMA LEUKOCYTOSIS EPIGASTRIC ABDOMINAL PAIN DUE TO ACUTE CHOLECYSTITIS AND DUODENAL ULCER - ADMISSION PER DR. ZHENG, STATUS POST CHOLECYSTECTOMY WITH DUODENAL PATCH (DUODENAL ULCER FOUND DURING SURGERY) HYPERTENSION - HOLD ORAL MEDICATIONS AT THIS TIME. DIABETES MELLITUS - HOLDING METFORMIN, CONSIDER RESTARTING ONCE ABLE TO TAKE ORAL MEDICATIONS ASTHMA - MONITOR SYMPTOMS. LEUKOCYTOSIS - PT ON IV ANTIBIOTICS, REPEAT LABS IN MORNING Clinical Quality Measures DVT/VTE Risk/Contraindication: Risk Factor Score Per Nursin RFS Level Per Nursing on Admit: 2=Moderate ARIA RAYMUNDO MD Sep 21, 2019 08:32 POS
--- NOTE | 2019-09-21 13:22 | Anesthesia-General Post-Op ---
General Patient Condition Mental Status/LOC: Same as Preop Cardiovascular: Satisfactory Nausea/Vomiting: Absent Respiratory: Satisfactory Pain: Controlled Complications: Absent Post Op Complications Complications None Follow Up Care/Instructions Patient Instructions None needed. Anesthesia/Patient Condition Patient Condition Patient is doing well, no complaints, stable vital signs, no apparent adverse anesthesia problems. No complications reported per nursing. D/C home per [facility] [place] [facility] Criteria: GIN Sosa CRNA Sep 21, 2019 13:22 POS
[2019-09-21] MEDS: PANTOPRAZOLE INJECTION 200 MG in NS (IVPB) 100 ML IV SCH (14:18)
[2019-09-21] MEDS: FLUCONAZOLE 200 MG/100 ML 50 ML, EMPTY IV BAG (PVC) 1 EA IV SCH ×2 (14:18)
[2019-09-22] VITALS (24 sets, daily range): BP systolic 121–162; BP diastolic 57–88
[2019-09-22 03:36] LABS: BASOPHILS % (AUTO) 0 % (0-10); EOSINOPHILS # (AUTO) 0.2 10^3/uL (0.0-0.3); EOSINOPHILS % (AUTO) 2 % (0-10); HEMATOCRIT 35 % (40-54); HEMOGLOBIN 11.6 G/DL (13.3-17.7); LYMPHOCYTES # (AUTO) 0.8 X 10^3 (1.0-4.0); LYMPHOCYTES % (AUTO) 6 % (12-44); MEAN CORPUSCULAR HEMOGLOBIN 32 PG (25-34); MEAN CORPUSCULAR HGB CONC 34 G/DL (32-36); MEAN CORPUSCULAR VOLUME 94 FL (80-99); MEAN PLATELET VOLUME 8.6 FL (7.4-10.4); MONOCYTES # (AUTO) 0.9 X 10^3 (0.0-1.0); MONOCYTES % (AUTO) 7 % (0-12); NEUTROPHILS # (AUTO) 11.6 X 10^3 (1.8-7.8); NEUTROPHILS % (AUTO) 86 % (42-75); PLATELET COUNT 270 10^3/uL (130-400); RED CELL DISTRIBUTION WIDTH 12.8 % (10.0-14.5); WHITE BLOOD COUNT 13.6 10^3/uL (4.3-11.0)
[2019-09-22] MEDS: fentaNYL INJECTION 100 MCG/2 ML AMP IV PRN ×3 (03:44→09:12)
[2019-09-22 04:03] LABS: BUN/CREATININE RATIO 16; CALCIUM 7.7 MG/DL (8.5-10.1); CARBON DIOXIDE 25 MMOL/L (21-32); CHLORIDE 108 MMOL/L (98-107); CREATININE SERUM 0.74 MG/DL (0.60-1.30); GFR ESTIMATED > 60; GLUCOSE 117 MG/DL (70-105); MAGNESIUM 2.2 MG/DL (1.6-2.4); PHOSPHORUS 1.8 MG/DL (2.3-4.7); POTASSIUM 3.4 MMOL/L (3.6-5.0); SODIUM 142 MMOL/L (135-145)
[2019-09-22] MEDS: POTASSIUM CL 10MEQ/50ML IVPB 50 ML IV SCH ×3 (04:45→04:59)
[2019-09-22] MEDS: MAGNESIUM 1 GM/100 ML IVPB 100 ML IV SCH (04:45)
[2019-09-22] MEDS: inSUlin ASPART (NovoLOG) 1 UNIT/0.01 ML (CHARGE PER UNIT) SQ SCH ×3 (04:46→18:39)
[2019-09-22] MEDS: KCL 20 MEQ TAB (K-DUR) PO SCH (04:46)
--- NOTE | 2019-09-22 05:40 | Pulmonary Progress Note ---
Subjective Time Seen by a Provider: 08:31 Subjective/Events-last exam Pt complains of abdominal pain. He is asking for more pain meds. Sepsis Event Evaluation Height, Weight, BMI Height: '" Weight: lbs. oz. kg; 27.56 BMI Method: Exam Exam Vital Signs Date Time Temp Pulse Resp B/P (MAP) Pulse Ox O2 Delivery O2 Flow Rate FiO2 09/22/19 05:00 96 18 132/73 (92) 97 OxyMask 3.00 09/22/19 04:00 92 11 145/72 (96) 97 OxyMask 3.00 09/22/19 03:43 37.0 09/22/19 03:25 94 OxyMask 3.00 09/22/19 03:00 94 33 131/71 (91) 97 OxyMask 3.00 09/22/19 02:00 89 16 121/57 (78) 96 OxyMask 3.00 09/22/19 01:00 92 09/22/19 01:00 92 15 127/68 (87) 96 OxyMask 3.00 09/22/19 00:00 97 14 153/75 (101) 94 OxyMask 3.00 09/21/19 23:55 97 OxyMask 3.00 09/21/19 23:50 36.8 OxyMask 3.00 09/21/19 23:00 89 20 140/73 (95) 96 OxyMask 2.00 09/21/19 22:00 84 24 126/72 (90) 95 OxyMask 2.00 09/21/19 21:00 89 19 134/69 (90) 96 OxyMask 2.00 09/21/19 20:55 97 10 94 OxyMask 2.00 09/21/19 20:00 98 14 168/77 (107) 93 Room Air 09/21/19 19:45 92 Room Air 09/21/19 19:44 36.7 09/21/19 19:00 93 09/21/19 19:00 93 35 139/71 (93) 92 Room Air 09/21/19 17:00 24 143/69 (93) 93 Room Air 09/21/19 16:17 93 Room Air 09/21/19 16:00 91 47 127/62 (83) 89 Room Air 09/21/19 15:28 36.7 09/21/19 15:00 24 133/65 (87) 90 Room Air 09/21/19 14:00 99 29 146/76 (99) 92 Room Air 09/21/19 13:01 92 09/21/19 13:00 86 19 129/63 (85) 92 Room Air 09/21/19 12:00 93 Room Air 09/21/19 12:00 37.2 09/21/19 12:00 98 23 149/70 (96) 94 Room Air 09/21/19 11:00 48 142/67 (92) 94 Room Air 09/21/19 10:00 90 24 138/70 (92) 92 Room Air 09/21/19 09:00 30 136/65 (88) 92 Room Air 09/21/19 08:22 36.8 09/21/19 08:15 94 Room Air 09/21/19 08:00 92 35 138/70 (92) 92 Room Air 09/21/19 07:00 98 30 150/81 (104) 94 Room Air 09/21/19 06:49 89 09/21/19 06:00 81 12 132/68 (89) 93 Room Air I & O 09/22/19 07:00 Intake Total 1340 ml Output Total 1575 ml Balance -235 ml Height & Weight Height: '" Weight: lbs. oz. kg; 27.56 BMI Method: General Appearance: WD/WN, Anxious, Chronically ill, Mild Distress, Thin HEENT: PERRL/EOMI Neck: Normal Inspection, Non Tender Respiratory: Chest Non Tender, Lungs Clear, No Accessory Muscle Use, No Respiratory Distress Cardiovascular: Regular Rate, Rhythm Capillary Refill: Less Than 3 Seconds Peripheral Pulses: 2+ Radial Pulses (R), 2+ Radial Pulses (L) Gastrointestinal: normal bowel sounds, soft, tenderness (secondary to surgery. ) Extremity: Normal Capillary Refill, No Calf Tenderness, No Pedal Edema Neurologic/Psychiatric: Alert, Oriented x3 Skin: Normal Color, Warm/Dry Lymphatic: No Adenopathy Results Lab Laboratory Tests 09/21/19 03:00 09/22/19 02:45 Assessment/Plan Assessment/Plan Cholecystitis s/p open Cholecystectomy - incentive spirometry -Surgery following Atelectasis with hypoxemia -- incentive spirometry Duodenal perforation s/p repair - Zosyn, Flagyl and Diflucan -Singh cultures are pending -LR currently at 75cc/hr -Protonix Leukocytosis - reactive vs sepsis -Continue Abx -Await cultures Anemia -Monitor LOIDA KRUEGER DO Sep 22, 2019 05:40 POS
[2019-09-22] MEDS ORDERED: POTASSIUM PHOSPHATE INJ 30 MM in NS (IVPB) 250 ML IV ONE (05:45)
--- NOTE | 2019-09-22 06:55 | Diagnostic Imaging Report ---
EXAM: CHEST 1 VIEW, AP/PA ONLY INDICATION: Upper gastrointestinal bleed. Cholecystitis. COMPARISON: 09/21/2019. FINDINGS: Normal heart size and central pulmonary vascularity. Mild atelectasis in the lung bases. No pleural effusion or pneumothorax. NG tube tip and side-port in the stomach. Surgical clips in the RUQ. IMPRESSION: Mild atelectasis in the lung bases. Chest is otherwise unremarkable. Dictated by: Dictated on workstation # [id number]
[2019-09-22] MEDS: metroNIDAZOLE 500MG/100ML IVPB 100 ML IV SCH ×2 (07:02→14:45)
[2019-09-22] MEDS: PIPERACILLIN/TAZO 4.5 GM/NS 100 ML IV SCH ×4 (08:30→17:55)
[2019-09-22] MEDS ORDERED: NS IV 1000 ML 1,000 ML IV SCH (08:57)
[2019-09-22] MEDS ORDERED: fentaNYL INJECTION 1,000 MCG in NS (IVPB) 80 ML IV SCH (09:00)
[2019-09-22] MEDS ORDERED: METOCLOPRAMIDE INJ 10 MG/2 ML (REGLAN) IV PRN (09:00)
[2019-09-22] MEDS ORDERED: NALOXONE 0.4 MG/ML 1 ML (NARCAN) VIAL IV PRN (09:00)
[2019-09-22] MEDS ORDERED: diphenhydrAMINE 50 MG/ML INJ (BENADRYL) IV PRN (09:00)
[2019-09-22] MEDS ORDERED: ONDANSETRON 4 MG/2 ML (SDV) Z0FRAN IV PRN (09:00)
--- NOTE | 2019-09-22 09:07 | Progress Note ---
Subjective Date Seen by a Provider: Sep 22, 2019 Time Seen by a Provider: 08:40 Subjective/Events-last exam PT REPORTS THAT HE IS JUST REALLY FEELING FATIGUED, HE REPORTS THAT HE HAS SIGNIFICANT PAIN IN HIS ABDOMEN AND IT IS NOT BEING CONTROLLED ON HIS CURRENT MEDICATION REGIMEN. HE STATES THAT HE IS FEELING LIKE HE DOES NOT HAVE ANY ENERGY LEFT TO FIGHT - HE IS HUNGRY AND IS WONDERING WHAT THE PLAN IS FOR WHEN HE CAN FINALLY EAT. Review of Systems General: Fatigue, Malaise HEENT: No Head Aches Pulmonary: No Dyspnea, No Cough Cardiovascular: No: Chest Pain, Palpitations Gastrointestinal: Abdominal Pain; No: Nausea Genitourinary: No Dysuria Neurological: Weakness; No: Confusion Objective Exam Last Set of Vital Signs Vital Signs Date Time Temp Pulse Resp B/P (MAP) Pulse Ox O2 Delivery O2 Flow Rate FiO2 09/22/19 08:00 37.0 09/22/19 06:00 92 18 128/66 (86) 91 OxyMask 3.00 Capillary Refill : Less Than 3 SecondsLess Than 3 Seconds I&O Intake and Output 09/22/19 00:00 Intake Total 2440 ml Output Total 1370 ml Balance 1070 ml Intake Oral 0 ml IV Total 2440 ml Output Urine Total 1050 ml Gastric Drainage Total 50 ml Drainage Total 270 ml General: Alert, Oriented X3, Cooperative, Mild Distress (DUE TO PAIN) HEENT: Atraumatic, PERRLA Neck: Supple Lungs: Other (DECREASED AIR MOVEMENT IN BASES WITH FAINT CRACKLES) Heart: Regular Rate Abdomen: Other (DISTENDED ABDOMEN, MID-LINE INCISION WITH SOME BLOODY DISCHARGE ON DRESSING, [place] DRAINS WITH BLOODY/DARK COLOR IN BOTH TUBES/DRAIN) Extremities: No Cyanosis, No Edema Skin: No Rashes, No Breakdown Psych/Mental Status: Mental Status NL, Other (SLIGHTLY TEARFUL TODAY ) Results Lab Laboratory Tests 09/21/19 11:35: Glucometer 168H 09/21/19 18:43: Glucometer 149H 09/21/19 23:53: Glucometer 122H 09/22/19 02:45: White Blood Count 13.6H, Red Blood Count 3.67L, Hemoglobin 11.6L, Hematocrit 35L , Mean Corpuscular Volume 94, Mean Corpuscular Hemoglobin 32, Mean Corpuscular Hemoglobin Concent 34, Red Cell Distribution Width 12.8, Platelet Count 270, Mean Platelet Volume 8.6, Neutrophils (%) (Auto) 86H, Lymphocytes (%) (Auto) 6L, Monocytes (%) (Auto) 7, Eosinophils (%) (Auto) 2, Basophils (%) (Auto) 0, Neutrophils # (Auto) 11.6H, Lymphocytes # (Auto) 0.8L, Monocytes # (Auto) 0.9, Eosinophils # (Auto) 0.2, Basophils # (Auto) 0.0, Sodium Level 142, Potassium Level 3.4L, Chloride Level 108H, Carbon Dioxide Level 25, Anion Gap 9, Blood Urea Nitrogen 12, Creatinine 0.74, Estimat Glomerular Filtration Rate > 60, BUN/Creatinine Ratio 16, Glucose Level 117H, Calcium Level 7.7L, Phosphorus Level 1.8L, Magnesium Level 2.2 Microbiology 09/20/19 MRSA Screen - Final, Complete MRSA not isolated 09/19/19 Urine Culture - Final, Complete NO GROWTH Assessment/Plan Assessment/Plan Assess & Plan/Chief Complaint EPIGASTRIC ABDOMINAL PAIN ACUTE CHOLECYSTITIS DUODENAL ULCER HYPERTENSION DIABETES MELLITUS ASTHMA LEUKOCYTOSIS EPIGASTRIC ABDOMINAL PAIN DUE TO ACUTE CHOLECYSTITIS AND DUODENAL ULCER - ADMISSION PER DR. ZHENG, STATUS POST CHOLECYSTECTOMY WITH DUODENAL PATCH (DUODENAL ULCER FOUND DURING SURGERY) - PT ON PROTONIX IV - PT NPO WITH NG TUBE IN PLACE - WILL CHANGE FLUIDS FROM LACTATED RINGERS TO CLINIMIX WITH ELECTROLYTES FOR PT TO HAVE SOME GLUCOSE AND PROTEINS IV UNTIL HE CAN TAKE ORAL FOOD/FLUIDS. MAY NEED TO CONSIDER TPN IF THE PATIENT IS TO BE ON EVEN MORE PROLONGED NPO STATUS. - MIDLINE OR PICC TO BE PLACED TODAY SINCE HE HAS SO MUCH IV FLUIDS/IV MEDICATIONS BEING GIVEN. 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 - START PRN IV METOPROLOL IF HIS SBP IS AT OR ABOVE 170. DIABETES MELLITUS - HOLDING METFORMIN, CONSIDER RESTARTING ONCE ABLE TO TAKE ORAL MEDICATIONS - CONTINUE WITH SLIDING SCALE INSULIN PER PROTOCOL ASTHMA - MONITOR SYMPTOMS. LEUKOCYTOSIS - IMPROVED FROM 16 TO 13 - PT ON IV ANTIBIOTICS, REPEAT LABS IN MORNING Clinical Quality Measures DVT/VTE Risk/Contraindication: Risk Factor Score Per Nursin RFS Level Per Nursing on Admit: 2=Moderate ARIA RAYMUNDO MD Sep 22, 2019 09:07 POS
[2019-09-22] MEDS: SENNA W/DOCUSATE (SENOKOT S) TABLET PO SCH (09:30)
--- NOTE | 2019-09-22 13:14 | Progress Note - Surgery ---
Subjective Date Seen by a Provider: Sep 22, 2019 Time Seen by a Provider: 08:38 Subjective/Events-last exam Patient having pain in abdomen. Feeling weak. NPO. NG tube in placed. Denies any other complaints. NG tube with some bile tinge. Denies fever sweats chills shortness of breath or chest pain. Objective Exam Vital Signs Date Time Temp Pulse Resp B/P (MAP) Pulse Ox O2 Delivery O2 Flow Rate FiO2 09/22/19 12:00 37.4 09/22/19 12:00 105 27 150/75 (100) 92 OxyMask 3.00 09/22/19 11:00 105 22 153/82 (105) 93 OxyMask 3.00 09/22/19 10:00 103 35 162/76 (104) 94 OxyMask 3.00 09/22/19 09:00 96 26 157/76 (103) 92 OxyMask 3.00 09/22/19 08:00 98 25 149/70 (96) 93 OxyMask 3.00 09/22/19 08:00 37.0 09/22/19 08:00 94 OxyMask 3.00 09/22/19 07:00 96 35 159/81 (107) 97 OxyMask 3.00 09/22/19 07:00 96 09/22/19 06:00 92 18 128/66 (86) 91 OxyMask 3.00 09/22/19 05:00 96 18 132/73 (92) 97 OxyMask 3.00 09/22/19 04:00 92 11 145/72 (96) 97 OxyMask 3.00 09/22/19 03:43 37.0 09/22/19 03:25 94 OxyMask 3.00 09/22/19 03:00 94 33 131/71 (91) 97 OxyMask 3.00 09/22/19 02:00 89 16 121/57 (78) 96 OxyMask 3.00 09/22/19 01:00 92 09/22/19 01:00 92 15 127/68 (87) 96 OxyMask 3.00 09/22/19 00:00 97 14 153/75 (101) 94 OxyMask 3.00 09/21/19 23:55 97 OxyMask 3.00 09/21/19 23:50 36.8 OxyMask 3.00 09/21/19 23:00 89 20 140/73 (95) 96 OxyMask 2.00 09/21/19 22:00 84 24 126/72 (90) 95 OxyMask 2.00 09/21/19 21:00 89 19 134/69 (90) 96 OxyMask 2.00 09/21/19 20:55 97 10 94 OxyMask 2.00 09/21/19 20:00 98 14 168/77 (107) 93 Room Air 09/21/19 19:45 92 Room Air 09/21/19 19:44 36.7 09/21/19 19:00 93 09/21/19 19:00 93 35 139/71 (93) 92 Room Air 09/21/19 17:00 24 143/69 (93) 93 Room Air 09/21/19 16:17 93 Room Air 09/21/19 16:00 91 47 127/62 (83) 89 Room Air 09/21/19 15:28 36.7 09/21/19 15:00 24 133/65 (87) 90 Room Air 09/21/19 14:00 99 29 146/76 (99) 92 Room Air I & O 09/22/19 07:00 Intake Total 1440 ml Output Total 1575 ml Balance -135 ml Capillary Refill : Less Than 3 SecondsLess Than 3 Seconds General Appearance: No Apparent Distress HEENT: PERRL/EOMI Neck: Non Tender, Supple Respiratory: Chest Non Tender, No Accessory Muscle Use, No Respiratory Distress Cardiovascular: Regular Rate, Rhythm Peripheral Pulses: 2+ Radial Pulses (R), 2+ Radial Pulses (L) Gastrointestinal: soft, tenderness (slight distended, mild tenderness upper abdomen) Extremity: Normal Capillary Refill, No Calf Tenderness, No Pedal Edema Neurologic/Psychiatric: Alert Skin: Normal Color, Warm/Dry Lymphatic: No Adenopathy Results Lab Laboratory Tests 09/21/19 18:43: Glucometer 149H 09/21/19 23:53: Glucometer 122H 09/22/19 02:45: White Blood Count 13.6H, Red Blood Count 3.67L, Hemoglobin 11.6L, Hematocrit 35L , Mean Corpuscular Volume 94, Mean Corpuscular Hemoglobin 32, Mean Corpuscular Hemoglobin Concent 34, Red Cell Distribution Width 12.8, Platelet Count 270, Mean Platelet Volume 8.6, Neutrophils (%) (Auto) 86H, Lymphocytes (%) (Auto) 6L, Monocytes (%) (Auto) 7, Eosinophils (%) (Auto) 2, Basophils (%) (Auto) 0, Neutrophils # (Auto) 11.6H, Lymphocytes # (Auto) 0.8L, Monocytes # (Auto) 0.9, Eosinophils # (Auto) 0.2, Basophils # (Auto) 0.0, Sodium Level 142, Potassium Level 3.4L, Chloride Level 108H, Carbon Dioxide Level 25, Anion Gap 9, Blood Urea Nitrogen 12, Creatinine 0.74, Estimat Glomerular Filtration Rate > 60, BUN/Creatinine Ratio 16, Glucose Level 117H, Calcium Level 7.7L, Phosphorus Level 1.8L, Magnesium Level 2.2 09/22/19 11:24: Glucometer 106 Microbiology 09/20/19 MRSA Screen - Final, Complete MRSA not isolated 09/19/19 Urine Culture - Final, Complete NO GROWTH Assessment/Plan Assessment/Plan Assessment/Plan s/p lap kareen c ioc and open duodenal ulcer perforation c haily patch. conitnue npo iv hydration NG Tube On Zosyn, Flagyl, Diflucan On Protonix drip. Pain control Slight bile tinge drainage in [place] drain but expect some. Continue to monitor. Clinical Quality Measures DVT/VTE Risk/Contraindication: Risk Factor Score Per Nursin RFS Level Per Nursing on Admit: 2=Moderate KATHLEEN ZHENG DO Sep 22, 2019 13:14 POS
[2019-09-22] MEDS: AA 4.25% W/LYTES IN D5W IV SOL 1,000 ML IV SCH ×2 (14:45→17:13)
[2019-09-22] MEDS: FLUCONAZOLE 200 MG/100 ML 50 ML, EMPTY IV BAG (PVC) 1 EA IV SCH ×2 (14:53)
[2019-09-22] MEDS: PANTOPRAZOLE INJECTION 200 MG in NS (IVPB) 100 ML IV SCH (14:56)
[2019-09-23] VITALS (12 sets, daily range): BP systolic 102–163; BP diastolic 61–82
[2019-09-23] MEDS: metroNIDAZOLE 500MG/100ML IVPB 100 ML IV SCH ×2 (00:30→07:57)
[2019-09-23] MEDS: PIPERACILLIN/TAZO 4.5 GM/NS 100 ML IV SCH ×6 (00:30→15:58)
[2019-09-23] MEDS: AA 4.25% W/LYTES IN D5W IV SOL 1,000 ML IV SCH ×2 (00:34→11:02)
[2019-09-23] MEDS: inSUlin ASPART (NovoLOG) 1 UNIT/0.01 ML (CHARGE PER UNIT) SQ SCH ×4 (00:35→19:57)
[2019-09-23 04:02] LABS: BASOPHILS % (AUTO) 0 % (0-10); EOSINOPHILS # (AUTO) 0.1 10^3/uL (0.0-0.3); EOSINOPHILS % (AUTO) 1 % (0-10); HEMATOCRIT 36 % (40-54); HEMOGLOBIN 12.2 G/DL (13.3-17.7); LYMPHOCYTES # (AUTO) 0.6 X 10^3 (1.0-4.0); LYMPHOCYTES % (AUTO) 4 % (12-44); MEAN CORPUSCULAR HEMOGLOBIN 31 PG (25-34); MEAN CORPUSCULAR HGB CONC 34 G/DL (32-36); MEAN CORPUSCULAR VOLUME 93 FL (80-99); MONOCYTES # (AUTO) 1.1 X 10^3 (0.0-1.0); MONOCYTES % (AUTO) 7 % (0-12); NEUTROPHILS # (AUTO) 14.3 X 10^3 (1.8-7.8); NEUTROPHILS % (AUTO) 89 % (42-75); PLATELET COUNT 264 10^3/uL (130-400); RED CELL DISTRIBUTION WIDTH 12.5 % (10.0-14.5); WHITE BLOOD COUNT 16.1 10^3/uL (4.3-11.0)
[2019-09-23 04:10] LABS: ALANINE AMINOTRANSFERASE 24 U/L (0-55); ALBUMIN 2.7 GM/DL (3.2-4.5); ALKALINE PHOSPHATASE 71 U/L (40-136); BUN/CREATININE RATIO 22; CALCIUM 7.8 MG/DL (8.5-10.1); CARBON DIOXIDE 24 MMOL/L (21-32); CHLORIDE 107 MMOL/L (98-107); CREATININE SERUM 0.73 MG/DL (0.60-1.30); GFR ESTIMATED > 60; GLUCOSE 198 MG/DL (70-105); MAGNESIUM 2.2 MG/DL (1.6-2.4); PHOSPHORUS 1.7 MG/DL (2.3-4.7); POTASSIUM 3.5 MMOL/L (3.6-5.0); SODIUM 141 MMOL/L (135-145); TOTAL PROTEIN 5.3 GM/DL (6.4-8.2)
--- NOTE | 2019-09-23 05:01 | Pulmonary Progress Note ---
Subjective Time Seen by a Provider: 05:00 Subjective/Events-last exam No complications noted. Sepsis Event Evaluation Height, Weight, BMI Height: '" Weight: lbs. oz. kg; 27.56 BMI Method: Exam Exam Vital Signs Date Time Temp Pulse Resp B/P (MAP) Pulse Ox O2 Delivery O2 Flow Rate FiO2 09/23/19 04:00 85 20 123/76 (92) 92 OxyMask 3.00 09/23/19 04:00 36.6 09/23/19 03:00 90 18 132/66 (88) 94 OxyMask 3.00 09/23/19 02:00 92 24 137/71 (93) 95 OxyMask 3.00 09/23/19 01:00 92 09/23/19 01:00 93 23 127/66 (86) 96 OxyMask 3.00 09/23/19 00:05 98 OxyMask 3.00 09/23/19 00:00 36.2 09/23/19 00:00 90 23 133/67 (89) 96 OxyMask 3.00 09/22/19 23:11 OxyMask 3.00 09/22/19 23:00 98 31 137/73 (94) 96 OxyMask 3.00 09/22/19 22:00 98 35 147/73 (97) 96 OxyMask 3.00 09/22/19 21:00 22 09/22/19 21:00 99 30 148/74 (98) 96 OxyMask 3.00 09/22/19 20:11 OxyMask 3.00 09/22/19 20:05 98 OxyMask 3.00 09/22/19 20:00 99 27 155/77 (103) 94 Room Air 09/22/19 20:00 37.0 09/22/19 19:00 98 09/22/19 19:00 98 25 144/78 (100) 93 Room Air 09/22/19 18:00 99 28 161/87 (111) 94 OxyMask 3.00 09/22/19 17:00 96 34 148/78 (101) 93 OxyMask 3.00 09/22/19 16:00 92 Room Air 09/22/19 16:00 101 22 137/71 (93) 93 OxyMask 3.00 09/22/19 16:00 37.1 09/22/19 15:00 104 25 128/88 (101) 89 OxyMask 3.00 09/22/19 14:43 92 Room Air 09/22/19 14:00 105 32 149/69 (95) 93 OxyMask 3.00 09/22/19 13:00 103 26 128/69 (88) 92 OxyMask 3.00 09/22/19 13:00 103 09/22/19 12:00 37.4 09/22/19 12:00 105 27 150/75 (100) 92 OxyMask 3.00 09/22/19 11:00 105 22 153/82 (105) 93 OxyMask 3.00 09/22/19 10:00 103 35 162/76 (104) 94 OxyMask 3.00 09/22/19 09:00 96 26 157/76 (103) 92 OxyMask 3.00 09/22/19 08:00 98 25 149/70 (96) 93 OxyMask 3.00 09/22/19 08:00 37.0 09/22/19 08:00 94 OxyMask 3.00 09/22/19 07:00 96 35 159/81 (107) 97 OxyMask 3.00 09/22/19 07:00 96 09/22/19 06:00 92 18 128/66 (86) 91 OxyMask 3.00 09/22/19 05:00 96 18 132/73 (92) 97 OxyMask 3.00 I & O 09/23/19 07:00 Intake Total 100 ml Output Total 2150 ml Balance -2050 ml Height & Weight Height: '" Weight: lbs. oz. kg; 27.56 BMI Method: General Appearance: No Apparent Distress HEENT: PERRL/EOMI Neck: Non Tender, Supple Respiratory: Chest Non Tender, No Accessory Muscle Use, No Respiratory Distress Cardiovascular: Regular Rate, Rhythm Capillary Refill: Less Than 3 Seconds Peripheral Pulses: 2+ Radial Pulses (R), 2+ Radial Pulses (L) Gastrointestinal: soft, tenderness (slight distended, mild tenderness upper abdomen) Extremity: Normal Capillary Refill, No Calf Tenderness, No Pedal Edema Neurologic/Psychiatric: Alert Skin: Normal Color, Warm/Dry Lymphatic: No Adenopathy Results Lab Laboratory Tests 09/22/19 02:45 11/2/19 02:43 Assessment/Plan Assessment/Plan Cholecystitis s/p open Cholecystectomy - incentive spirometry -Surgery following Atelectasis with hypoxemia -- incentive spirometry -Consult PT/OT Duodenal perforation s/p repair - Zosyn, Flagyl and Diflucan -Singh cultures are pending -Clinimax 75cc/hr -Protonix Leukocytosis - reactive vs sepsis -Continue Abx -Await cultures Anemia -Monitor LOIDA KRUEGER DO Sep 23, 2019 05:01 POS
[2019-09-23] MEDS: KCL 20 MEQ TAB (K-DUR) PO SCH (07:06)
[2019-09-23] MEDS: POTASSIUM CL 10MEQ/50ML IVPB 50 ML IV SCH (07:06)
[2019-09-23] MEDS: MAGNESIUM 1 GM/100 ML IVPB 100 ML IV SCH (07:06)
[2019-09-23] MEDS: SENNA W/DOCUSATE (SENOKOT S) TABLET PO SCH (08:04)
--- NOTE | 2019-09-23 08:15 | Diagnostic Imaging Report ---
INDICATION: Cholecystitis. Upper abdominal bleed. EXAMINATION: Chest 09/23/2019 COMPARISON: 09/22/2019 FINDINGS: Right hemidiaphragm is elevated. There is adjacent atelectasis or infiltrate versus a small effusion. Heart is stable. Pulmonary vasculature is somewhat congested. No pneumothorax. Feeding tube tip is in the left upper abdomen. IMPRESSION: 1. Stable chest Dictated by: Dictated on workstation # [id number]
[2019-09-23] MEDS ORDERED: POTASSIUM PHOSPHATE INJ 30 MM in NS (IVPB) 250 ML IV ONE (09:00)
--- NOTE | 2019-09-23 09:12 | Progress Note - Surgery ---
BETTY ZAVALETA,MED STUDENT 09/23/19 0912: Subjective Date Seen by a Provider: Sep 23, 2019 Time Seen by a Provider: 08:15 Subjective/Events-last exam Patient seen and examined. He states he is in "overall less pain" today than yesterday, and reports less abdominal pain with inspiration and breathing a little easier today. Notes the intense, sharp pains are less frequent and severe today, and the abdominal pain is now lower in the abdomen and a "heavy ache or discomfort". He rates this pain a 5/10 and mostly constant but non-radiating. He has not had a BM but feels like he is getter closer to having one. Only new concern he reports today is a "tight" feeling in his R forearm at an IV site. Notes the area became a little tender overnight and feels warm, so the IV was moved to his L arm. He rates this pain a 2/10 and non-radiating. Denies dizziness, SOB, or chest pain. He is still NPO and NG tube is in place. Objective Exam Vital Signs Date Time Temp Pulse Resp B/P (MAP) Pulse Ox O2 Delivery O2 Flow Rate FiO2 09/23/19 08:00 92 22 148/82 (104) 93 OxyMask 3.00 09/23/19 08:00 Room Air 09/23/19 07:00 22 09/23/19 07:00 87 18 92 OxyMask 3.00 09/23/19 07:00 86 09/23/19 06:00 90 25 94 OxyMask 3.00 09/23/19 05:00 90 24 128/80 (96) 93 OxyMask 3.00 09/23/19 04:00 85 20 123/76 (92) 92 OxyMask 3.00 09/23/19 04:00 98 OxyMask 3.00 09/23/19 04:00 36.6 09/23/19 03:00 90 18 132/66 (88) 94 OxyMask 3.00 09/23/19 02:00 92 24 137/71 (93) 95 OxyMask 3.00 09/23/19 01:00 92 09/23/19 01:00 93 23 127/66 (86) 96 OxyMask 3.00 09/23/19 00:05 98 OxyMask 3.00 09/23/19 00:00 36.2 09/23/19 00:00 90 23 133/67 (89) 96 OxyMask 3.00 09/22/19 23:11 OxyMask 3.00 09/22/19 23:00 98 31 137/73 (94) 96 OxyMask 3.00 09/22/19 22:00 98 35 147/73 (97) 96 OxyMask 3.00 09/22/19 21:00 22 09/22/19 21:00 99 30 148/74 (98) 96 OxyMask 3.00 09/22/19 20:11 OxyMask 3.00 09/22/19 20:05 98 OxyMask 3.00 09/22/19 20:00 99 27 155/77 (103) 94 Room Air 09/22/19 20:00 37.0 09/22/19 19:00 98 09/22/19 19:00 98 25 144/78 (100) 93 Room Air 09/22/19 18:00 99 28 161/87 (111) 94 OxyMask 3.00 09/22/19 17:00 96 34 148/78 (101) 93 OxyMask 3.00 09/22/19 16:00 92 Room Air 09/22/19 16:00 101 22 137/71 (93) 93 OxyMask 3.00 09/22/19 16:00 37.1 09/22/19 15:00 104 25 128/88 (101) 89 OxyMask 3.00 09/22/19 14:43 92 Room Air 09/22/19 14:00 105 32 149/69 (95) 93 OxyMask 3.00 09/22/19 13:00 103 26 128/69 (88) 92 OxyMask 3.00 09/22/19 13:00 103 09/22/19 12:00 37.4 09/22/19 12:00 105 27 150/75 (100) 92 OxyMask 3.00 09/22/19 11:00 105 22 153/82 (105) 93 OxyMask 3.00 09/22/19 10:00 103 35 162/76 (104) 94 OxyMask 3.00 I & O 09/23/19 07:00 Intake Total 100 ml Output Total 2440 ml Balance -2340 ml Capillary Refill : Less Than 3 SecondsLess Than 3 Seconds General Appearance: No Apparent Distress, WD/WN Respiratory: Chest Non Tender, No Accessory Muscle Use, No Respiratory Distress Cardiovascular: Regular Rate, Rhythm, Normal Peripheral Pulses Peripheral Pulses: 2+ Dorsalis Pedis (R), 2+ Left Dors-Pedis (L), 2+ Radial Pulses (R), 2+ Radial Pulses (L) Gastrointestinal: soft, tenderness (slight distended, mild tenderness upper abdomen) Extremity: No Calf Tenderness, No Pedal Edema, Other (Tenderness and mild s welling of R forearm) Neurologic/Psychiatric: Alert, Oriented x3 Skin: Normal Color, Warm/Dry Results Lab Laboratory Tests 09/22/19 11:24: Glucometer 106 09/22/19 17:49: Glucometer 180H 09/23/19 00:09: Glucometer 184H 09/23/19 02:43: White Blood Count 16.1H, Red Blood Count 3.90L, Hemoglobin 12.2L, Hematocrit 36L , Mean Corpuscular Volume 93, Mean Corpuscular Hemoglobin 31, Mean Corpuscular Hemoglobin Concent 34, Red Cell Distribution Width 12.5, Platelet Count 264, Mean Platelet Volume 9.0, Neutrophils (%) (Auto) 89H, Lymphocytes (%) (Auto) 4L, Monocytes (%) (Auto) 7, Eosinophils (%) (Auto) 1, Basophils (%) (Auto) 0, Neutrophils # (Auto) 14.3H, Lymphocytes # (Auto) 0.6L, Monocytes # (Auto) 1.1H, Eosinophils # (Auto) 0.1, Basophils # (Auto) 0.0, Sodium Level 141, Potassium Level 3.5L, Chloride Level 107, Carbon Dioxide Level 24, Anion Gap 10, Blood Urea Nitrogen 16, Creatinine 0.73, Estimat Glomerular Filtration Rate > 60, BUN/Creatinine Ratio 22, Glucose Level 198H, Calcium Level 7.8L, Corrected Calcium 8.8, Phosphorus Level 1.7L, Magnesium Level 2.2, Total Bilirubin 1.0, Aspartate Amino Transf (AST/SGOT) 38H, Alanine Aminotransferase (ALT/SGPT) 24, Alkaline Phosphatase 71, Total Protein 5.3L, Albumin 2.7L Microbiology 09/20/19 MRSA Screen - Final, Complete MRSA not isolated 09/19/19 Urine Culture - Final, Complete NO GROWTH Assessment/Plan Assessment/Plan Assessment/Plan s/p lap kareen c ioc and open duodenal ulcer perforation c terry patch. R forearm tenderness and swelling, afebrile, continue to monitor continue to monitor leukocytosis continue npo iv hydration NG Tube in place On Zosyn, Flagyl, Diflucan Continue IV pantoprazole Pain control Clinical Quality Measures DVT/VTE Risk/Contraindication: Risk Factor Score Per Nursin RFS Level Per Nursing on Admit: 2=Moderate SALVADOR PRETTY DO 09/23/19 1305: Subjective Time Seen by a Provider: 10:01 Subjective/Events-last exam Pt seen and examined, his main complaint is the feeling that he has to urinate; it is really bothering him. Thinks abdominal pain is not as bad as yesterday; he is able to breathe a little easier without it causing abdominal pain. Objective Exam Gastrointestinal: other (one drain with serosanguinous fluid, the other has a large amount of fluid with fair amount of bile in it) Extremity: Other (Tenderness and mild swelling of R forearm) Assessment/Plan Assessment/Plan Assessment/Plan S/P Lap kareen and Modified Terry patch Continue NPO, D/C perez, ok to move to 4th floor, do not touch NGT, will stop flagyl, continue current care Supervisory-Addendum Brief Verification & Attestation Participated in pt care: history, MDM, physical Personally performed: exam, history, MDM Care discussed with: Medical Student Procedures: n/a Verification and Attestation of Medical Student E/M Service A medical student performed and documented this service in my presence. I reviewed and verified all information documented by the medical student and made modifications to such information, when appropriate. I personally performed the physical exam and medical decision making. Salvador Pretty, Sep 23, 2019,13:05 BETTY ZAVALETA,MED STUDENT Sep 23, 2019 09:12 SALVADOR SHAFER DO Sep 23, 2019 13:05 POS
--- NOTE | 2019-09-23 11:30 | NUR ---
Report called to BRITTNEY López who will assume pt care on arrival to 4th floor at this time. VSS prior to transfer. Personal belongings with pt at time of transfer. Pt transferred by bed during this time by NTs.
--- NOTE | 2019-09-23 11:40 | NUR ---
TOOK OVER CARE OF THIS PT FROM LINDA FERRIS RN ICU. I HAVE REVIEWD HIS ASSESSMENT BY HER AND AGREE WITH IT.
--- NOTE | 2019-09-23 13:51 | Progress Note - Hospitalist ---
Subjective HPI/CC On Admission Date Seen by Provider: Sep 23, 2019 Time Seen by Provider: 09:10 abdominal pain Subjective/Events-last exam He reports ongoing abdominal pain. He denies fevers and chills. He reports dry mouth. He denies chest pain and shortness of breath. He denies any nausea or vomiting. Objective Exam Vital Signs Vital Signs Date Time Temp Pulse Resp B/P (MAP) Pulse Ox O2 Delivery O2 Flow Rate FiO2 09/23/19 12:10 95 09/23/19 11:40 37.0 30 139/82 (101) 94 Room Air 09/23/19 08:00 3.00 Capillary Refill : Less Than 3 SecondsLess Than 3 Seconds General Appearance: No Apparent Distress, WD/WN HEENT: PERRL/EOMI; No Moist Mucous Membranes Respiratory: Lungs Clear, Normal Breath Sounds, No Respiratory Distress Cardiovascular: Regular Rate, Rhythm, No Edema, No Murmur Gastrointestinal: Soft, Abnormal Bowel Sounds (Hypoactive); No Distended, No Guarding; Rebound, Tenderness Extremity: Normal Inspection, Non Tender, No Pedal Edema Neurologic/Psychiatric: Alert, Oriented x3, No Motor/Sensory Deficits, Normal Mood/Affect Skin: Warm/Dry, Pallor Lymphatic: No Adenopathy Results/Procedures Lab Laboratory Tests 09/23/19 02:43 Patient resulted labs reviewed. Assessment/Plan Assessment and Plan Assess & Plan/Chief Complaint Acute cholecystitis Duodenal ulcer Status post cholecystectomy Drains in place Currently nothing by mouth NG tube in place Receiving clindamycin Protonix drip ordered Transition to Protonix IV twice a day Currently on Diflucan, Zosyn and Flagyl Discontinue Flagyl with Zosyn providing anaerobic coverage Transfer to fourth floor Surgery primary Thrombophlebitis Right forearm erythematous and indurated at site of prior IV Warm compress ordered Hypertension Metoprolol ordered as needed Type II diabetes mellitus Sliding scale insulin Acute hypoxic respiratory failure Atelectasis Supplemental oxygen as needed Continue incentive spirometry Pulmonology following Hypophosphatemia Monitor and replace as needed Diagnosis/Problems Diagnosis/Problems (1) Acute cholecystitis Status: Acute (2) Duodenal ulcer Status: Acute (3) Thrombophlebitis Status: Acute (4) Hypertension Status: Chronic Qualifiers: Hypertension type: essential hypertension Qualified Codes: I10 - Essential (primary) hypertension (5) Type II diabetes mellitus Status: Chronic (6) Acute hypoxemic respiratory failure Status: Acute (7) Atelectasis Status: Acute (8) Hypophosphatemia Status: Acute Clinical Quality Measures DVT/VTE Risk/Contraindication: Risk Factor Score Per Nursin RFS Level Per Nursing on Admit: 2=Moderate CONNIE MCKEON MD Sep 23, 2019 13:50 POS
[2019-09-23] MEDS: FLUCONAZOLE 200 MG/100 ML 50 ML, EMPTY IV BAG (PVC) 1 EA IV SCH ×2 (14:33)
[2019-09-23] MEDS: PANTOPRAZOLE 40 MG (PROTONIX) VIAL IV SCH (20:43)
[2019-09-24] VITALS (7 sets, daily range): BP systolic 133–206; BP diastolic 69–105
[2019-09-24] MEDS: inSUlin ASPART (NovoLOG) 1 UNIT/0.01 ML (CHARGE PER UNIT) SQ SCH ×5 (00:03→23:38)
[2019-09-24] MEDS: meTOprolol 5 MG/5 ML (LOPRESSOR) VIAL IV PRN ×2 (00:10→05:30)
[2019-09-24] MEDS: PIPERACILLIN/TAZO 4.5 GM/NS 100 ML IV SCH ×8 (00:10→23:57)
[2019-09-24] MEDS: AA 4.25% W/LYTES IN D5W IV SOL 1,000 ML IV SCH ×3 (00:11→18:08)
[2019-09-24 06:01] LABS: BASOPHILS % (AUTO) 0 % (0-10); EOSINOPHILS # (AUTO) 0.1 10^3/uL (0.0-0.3); EOSINOPHILS % (AUTO) 1 % (0-10); HEMATOCRIT 41 % (40-54); HEMOGLOBIN 13.8 G/DL (13.3-17.7); LYMPHOCYTES # (AUTO) 0.6 X 10^3 (1.0-4.0); LYMPHOCYTES % (AUTO) 4 % (12-44); MEAN CORPUSCULAR HEMOGLOBIN 31 PG (25-34); MEAN CORPUSCULAR HGB CONC 34 G/DL (32-36); MEAN CORPUSCULAR VOLUME 92 FL (80-99); MEAN PLATELET VOLUME 9.1 FL (7.4-10.4); MONOCYTES # (AUTO) 1.4 X 10^3 (0.0-1.0); MONOCYTES % (AUTO) 8 % (0-12); NEUTROPHILS # (AUTO) 15.5 X 10^3 (1.8-7.8); NEUTROPHILS % (AUTO) 88 % (42-75); PLATELET COUNT 267 10^3/uL (130-400); RED CELL DISTRIBUTION WIDTH 12.6 % (10.0-14.5); WHITE BLOOD COUNT 17.7 10^3/uL (4.3-11.0)
[2019-09-24 06:27] LABS: ALANINE AMINOTRANSFERASE 26 U/L (0-55); ALBUMIN 2.8 GM/DL (3.2-4.5); ALKALINE PHOSPHATASE 73 U/L (40-136); BILIRUBIN,TOTAL 0.8 MG/DL (0.1-1.0); BUN/CREATININE RATIO 37; CALCIUM 7.9 MG/DL (8.5-10.1); CARBON DIOXIDE 21 MMOL/L (21-32); CHLORIDE 108 MMOL/L (98-107); CREATININE SERUM 0.73 MG/DL (0.60-1.30); GFR ESTIMATED > 60; GLUCOSE 203 MG/DL (70-105); MAGNESIUM 2.3 MG/DL (1.6-2.4); PHOSPHORUS 2.4 MG/DL (2.3-4.7); POTASSIUM 3.6 MMOL/L (3.6-5.0); SODIUM 140 MMOL/L (135-145); TOTAL PROTEIN 5.8 GM/DL (6.4-8.2)
[2019-09-24] MEDS: MAGNESIUM 1 GM/100 ML IVPB 100 ML IV SCH (06:44)
[2019-09-24] MEDS: KCL 20 MEQ TAB (K-DUR) PO SCH (06:45)
--- NOTE | 2019-09-24 07:27 | Pulmonary Progress Note ---
Subjective Time Seen by a Provider: 13:16 Subjective/Events-last exam Complains of abdominal pain Sepsis Event Evaluation Height, Weight, BMI Height: '" Weight: lbs. oz. kg; 27.56 BMI Method: Exam Exam Vital Signs Date Time Temp Pulse Resp B/P (MAP) Pulse Ox O2 Delivery O2 Flow Rate FiO2 09/24/19 04:48 37.0 100 18 206/105 (138) 94 Room Air 09/24/19 02:30 98 174/91 (118) 09/24/19 01:00 88 09/24/19 00:29 37.2 110 18 196/100 (132) 93 Room Air 09/23/19 20:05 Room Air 09/23/19 20:05 18 09/23/19 19:57 37.3 100 18 163/79 (107) 92 Room Air 09/23/19 19:00 96 09/23/19 16:00 37.6 100 18 162/77 (105) 93 Room Air 09/23/19 12:10 95 09/23/19 11:40 37.0 94 30 139/82 (101) 94 Room Air 09/23/19 10:00 95 38 130/77 (94) 93 Room Air 09/23/19 09:00 96 33 129/75 (93) 94 Room Air 09/23/19 08:00 92 22 148/82 (104) 93 OxyMask 3.00 09/23/19 08:00 Room Air I & O 09/24/19 07:00 Intake Total 510 ml Output Total 845 ml Balance -335 ml Height & Weight Height: '" Weight: lbs. oz. kg; 27.56 BMI Method: General Appearance: No Apparent Distress, WD/WN HEENT: PERRL/EOMI; No Moist Mucous Membranes Respiratory: Lungs Clear, Normal Breath Sounds, No Respiratory Distress Cardiovascular: Regular Rate, Rhythm, No Edema, No Murmur Capillary Refill: Less Than 3 Seconds Peripheral Pulses: 2+ Dorsalis Pedis (R), 2+ Left Dors-Pedis (L), 2+ Radial Pulses (R), 2+ Radial Pulses (L) Gastrointestinal: other (one drain with serosanguinous fluid, the other has a large amount of fluid with fair amount of bile in it) Extremity: Normal Inspection, Non Tender, No Pedal Edema Neurologic/Psychiatric: Alert, Oriented x3, No Motor/Sensory Deficits, Normal Mood/Affect Skin: Warm/Dry, Pallor Lymphatic: No Adenopathy Results Lab Laboratory Tests 09/23/19 02:43 09/24/19 05:30 Assessment/Plan Assessment/Plan Cholecystitis s/p open Cholecystectomy - incentive spirometry -Surgery following -Pt is on RA Worsening Leukocytosis -Continue Zosyn , diflucan, flagyl auto stopped -Repeat avendaño cultures Atelectasis with hypoxemia -- incentive spirometry -Consult PT/OT Duodenal perforation s/p repair - Zosyn, Flagyl and Diflucan -Avendaño cultures are pending -Clinimax 75cc/hr -Protonix Leukocytosis - reactive vs sepsis -Continue Abx -Await cultures Anemia -Monitor LOIDA KRUEGER DO Sep 24, 2019 07:27 POS
--- NOTE | 2019-09-24 07:45 | Diagnostic Imaging Report ---
INDICATION: Cholecystitis, upper GI bleed. COMPARISON: 09/23/2019 FINDINGS: Single view of the chest demonstrates stable small effusions with atelectasis. The heart is prominent without pulmonary edema. There is no pneumothorax. NG tube is in the stomach. IMPRESSION: 1. Stable small effusions with dependent atelectasis. 2. Stable cardiac enlargement without overt pulmonary edema. Dictated by: Dictated on workstation # [id number]
[2019-09-24] MEDS ORDERED: hydrALAZINE (APESOLINE) 20 MG/ML VIAL IV PRN (08:00)
[2019-09-24] MEDS: POTASSIUM CL 10MEQ/50ML IVPB 50 ML IV SCH (08:04)
--- NOTE | 2019-09-24 09:14 | Progress Note - Surgery ---
BETTY ZAVALETA,MED STUDENT 09/24/19 0914: Subjective Date Seen by a Provider: Sep 24, 2019 Time Seen by a Provider: 08:30 Subjective/Events-last exam Patient is now on 4th floor and reports his abdominal pain is improved over yesterday. States the "intense pains" are gone, but is still having achy pains that he rates 2-3/10. Notes the pain is in the RUQ and hurts when he sits up on the side of the bed, and improves with lying down and pain medication. He reports 2 BM's, 1 overnight and 1 this am. [place] catheter is no longer in place, and he is using a urinal in bed and reports no trouble with urinating. He continues to use IS, and says he is no longer having the intense pains with deep breaths. He is still on NPO, and NG tube is in place. Per nursing staff, drain 2 produced 30mL's and drain 1 produced 70-100mL's the last 24 hour period. Denies SOB, dizziness, chest pain. Focused Exam Lactate Level 09/24/19 07:50: Lactic Acid Level 1.39 Lactic Acid Level Laboratory Tests Test 09/24/19 07:50 Lactic Acid Level 1.39 MMOL/L (0.50-2.00) Objective Exam Vital Signs Date Time Temp Pulse Resp B/P (MAP) Pulse Ox O2 Delivery O2 Flow Rate FiO2 09/24/19 07:00 81 09/24/19 04:48 37.0 100 18 206/105 (138) 94 Room Air 09/24/19 02:30 98 174/91 (118) 09/24/19 01:00 88 09/24/19 00:29 37.2 110 18 196/100 (132) 93 Room Air 09/23/19 20:05 Room Air 09/23/19 20:05 18 09/23/19 19:57 37.3 100 18 163/79 (107) 92 Room Air 09/23/19 19:00 96 09/23/19 16:00 37.6 100 18 162/77 (105) 93 Room Air 09/23/19 12:10 95 09/23/19 11:40 37.0 94 30 139/82 (101) 94 Room Air 09/23/19 10:00 95 38 130/77 (94) 93 Room Air I & O 09/24/19 07:00 Intake Total 510 ml Output Total 1320 ml Balance -810 ml Capillary Refill : Less Than 3 SecondsLess Than 3 Seconds General Appearance: No Apparent Distress, WD/WN HEENT: No Moist Mucous Membranes Respiratory: Lungs Clear, Normal Breath Sounds, No Respiratory Distress Cardiovascular: Regular Rate, Rhythm, No Edema, No Murmur Peripheral Pulses: 2+ Dorsalis Pedis (R), 2+ Left Dors-Pedis (L), 2+ Radial Pulses (R), 2+ Radial Pulses (L) Gastrointestinal: tenderness (RUQ tenderness with palpation), other (one drain with serosanguinous fluid, the other has a large amount of fluid with fair amount of bile in it) Extremity: Normal Inspection, Non Tender, No Pedal Edema Neurologic/Psychiatric: Alert, Oriented x3, Normal Mood/Affect Skin: Warm/Dry, Erythema (R anterior forearm swollen and erythematous), Pallor Results Lab Laboratory Tests 09/23/19 12:22: Glucometer 149H 09/23/19 17:59: Glucometer 198H 09/23/19 23:57: Glucometer 179H 09/24/19 05:20: Glucometer 185H 09/24/19 05:30: White Blood Count 17.7H, Red Blood Count 4.48, Hemoglobin 13.8, Hematocrit 41, Mean Corpuscular Volume 92, Mean Corpuscular Hemoglobin 31, Mean Corpuscular Hemoglobin Concent 34, Red Cell Distribution Width 12.6, Platelet Count 267, Mean Platelet Volume 9.1, Neutrophils (%) (Auto) 88H, Lymphocytes (%) (Auto) 4L, Monocytes (%) (Auto) 8, Eosinophils (%) (Auto) 1, Basophils (%) (Auto) 0, Neutrophils # (Auto) 15.5H, Lymphocytes # (Auto) 0.6L, Monocytes # (Auto) 1.4H, Eosinophils # (Auto) 0.1, Basophils # (Auto) 0.0, Sodium Level 140, Potassium [place] 3.6, Chloride Level 108H, Carbon Dioxide Level 21, Anion Gap 11, Blood Urea Nitrogen 27H, Creatinine 0.73, Estimat Glomerular Filtration Rate > 60, BUN/Creatinine Ratio 37, Glucose Level 203H, Calcium Level 7.9L, Corrected Calcium 8.9, Phosphorus Level 2.4, Magnesium Level 2.3, Total Bilirubin 0.8, Aspartate Amino Transf (AST/SGOT) 29, Alanine Aminotransferase (ALT/SGPT) 26, Alkaline Phosphatase 73, B-Type Natriuretic Peptide 72.5, Total Protein 5.8L, Albumin 2.8L 09/24/19 07:50: Lactic Acid Level 1.39 Microbiology 09/20/19 MRSA Screen - Final, Complete MRSA not isolated 09/19/19 Urine Culture - Final, Complete NO GROWTH Assessment/Plan Assessment/Plan Assessment/Plan S/P Lap kareen and Modified Terry patch R forearm thrombophlebitis Continue NPO and NG tube Warm compress Continue movement and incentive spirometry as tolerated Clinical Quality Measures DVT/VTE Risk/Contraindication: Risk Factor Score Per Nursin RFS Level Per Nursing on Admit: 2=Moderate SALVADOR PRETTY DO 09/24/19 1207: Subjective Time Seen by a Provider: 11:00 Subjective/Events-last exam Pt seen and examined, states he can take a breath better. Still has minimal abdominal pain. Objective Exam Gastrointestinal: other (one drain with serosanguinous fluid, second drain has smaller amount of bile in it today) Assessment/Plan Assessment/Plan Assessment/Plan Pt encouraged to use IS and ambulate. Warm compress ordered for right forearm; doubt it is the PICC that caused this. Would keep PICC for now and check doppler tomorrow. Supervisory-Addendum Brief Verification & Attestation Participated in pt care: history, MDM, physical Personally performed: exam, history, MDM Care discussed with: Medical Student Procedures: n/a Verification and Attestation of Medical Student E/M Service A medical student performed and documented this service in my presence. I reviewed and verified all information documented by the medical student and made modifications to such information, when appropriate. I personally performed the physical exam and medical decision making. Salvador Pretty, Sep 24, 2019,12:07 BETTY ZAVALETA,MED STUDENT Sep 24, 2019 09:14 SALVADOR SHAFER DO Sep 24, 2019 12:07 POS
[2019-09-24] MEDS: PANTOPRAZOLE 40 MG (PROTONIX) VIAL IV SCH ×2 (09:33→20:45)
[2019-09-24] MEDS: SENNA W/DOCUSATE (SENOKOT S) TABLET PO SCH (09:34)
--- NOTE | 2019-09-24 10:22 | NUR ---
RECEIVED TELEPHONE ORDER FROM DR. KRUEGER TO REMOVE MIDLINE AND CULTURE TIP DUE TO SWELLING AND REDNESS TO RUE AND TO DOPPLER ARM TOMORROW, 09/25/19
--- NOTE | 2019-09-24 10:40 | NUR ---
DR. PRETTY HERE TO SEE PT. INFORMED DR. PRETTY OF DR. RANDY MA. DR. PRETTY STATED NOT REMOVE MIDLINE AREA THAT IS RED AND SWOLLEN IS BELOW THE IV SITE AND LIKELY DUE FROM IV INFILTRATE DAYS PRIOR. DR. PRETTY STATED TO WRAP ARM IN WARM COMPRESS FOR DISCOMFORT. MIDLINE LEFT IN PLACE. WILL CONTINUE TO MONITOR SITE. Addendum: 09/24/19 at 1856 by NAHUM COLEY RN DR. PRETTY HERE TO SEE PT. INFORMED DR. PRETTY OF DR. RANDY MA. DR. PRETTY STATED NOT TO REMOVE MIDLINE AREA THAT IS RED AND SWOLLEN IS BELOW THE IV SITE AND LIKELY DUE FROM IV INFILTRATE DAYS PRIOR. DR. PRETTY STATED TO WRAP ARM IN WARM COMPRESS FOR DISCOMFORT. MIDLINE LEFT IN PLACE. WILL CONTINUE TO MONITOR SITE.
[2019-09-24] MEDS: FLUCONAZOLE 200 MG/100 ML 50 ML, EMPTY IV BAG (PVC) 1 EA IV SCH ×2 (14:41)
--- NOTE | 2019-09-24 15:37 | Progress Note - Hospitalist ---
Subjective HPI/CC On Admission Date Seen by Provider: Sep 24, 2019 Time Seen by Provider: 10:40 abdominal pain Subjective/Events-last exam He reports improved abdominal pain. He denies nausea and vomiting. He denies fevers and chills. He denies chest pain and dyspnea. He is able to take a deep breath now without pain. Focused Exam Lactate Level 09/24/19 07:50: Lactic Acid Level 1.39 Objective Exam Vital Signs Vital Signs Date Time Temp Pulse Resp B/P (MAP) Pulse Ox O2 Delivery O2 Flow Rate FiO2 09/24/19 12:09 93 09/24/19 12:00 37.0 18 133/69 (90) 94 Room Air 09/23/19 08:00 3.00 Capillary Refill : Less Than 3 SecondsLess Than 3 Seconds General Appearance: No Apparent Distress, WD/WN HEENT: PERRL/EOMI, Other (dry mucous membranes) Neck: Normal Inspection, Supple Respiratory: Lungs Clear, Normal Breath Sounds, No Respiratory Distress Cardiovascular: Regular Rate, Rhythm, No Edema, No Murmur Gastrointestinal: Normal Bowel Sounds, Soft, Tenderness, Other (drains in place) Extremity: Normal Inspection, Non Tender, No Pedal Edema Neurologic/Psychiatric: Alert, Oriented x3, No Motor/Sensory Deficits, Normal Mood/Affect Skin: Warm/Dry, Pallor Results/Procedures Lab Laboratory Tests 09/24/19 05:30 Patient resulted labs reviewed. Assessment/Plan Assessment and Plan Assess & Plan/Chief Complaint Acute cholecystitis Duodenal ulcer Status post cholecystectomy Drains in place Currently nothing by mouth NG tube in place to suction Receiving clindamix Continue IV PPI BID Continue Diflucan and Zosyn Surgery primary Thrombophlebitis Right forearm erythematous and indurated at site of prior IV Warm compress ordered Hypertension Metoprolol ordered as needed Type II diabetes mellitus Sliding scale insulin Acute hypoxic respiratory failure Atelectasis Supplemental oxygen as needed Continue incentive spirometry Pulmonology following Hypophosphatemia, resolved Monitor and replace as needed Diagnosis/Problems Diagnosis/Problems (1) Acute cholecystitis Status: Acute (2) Duodenal ulcer Status: Acute (3) Thrombophlebitis Status: Acute (4) Hypertension Status: Chronic Qualifiers: Hypertension type: essential hypertension Qualified Codes: I10 - Essential (primary) hypertension (5) Type II diabetes mellitus Status: Chronic (6) Acute hypoxemic respiratory failure Status: Acute (7) Atelectasis Status: Acute (8) Hypophosphatemia Status: Acute Clinical Quality Measures DVT/VTE Risk/Contraindication: Risk Factor Score Per Nursin RFS Level Per Nursing on Admit: 2=Moderate CONNIE MCKEON MD Sep 24, 2019 15:37 POS
[2019-09-25] VITALS (7 sets, daily range): BP systolic 129–200; BP diastolic 52–107
[2019-09-25] MEDS: AA 4.25% W/LYTES IN D5W IV SOL 1,000 ML IV SCH ×3 (01:30→16:02)
[2019-09-25 05:40] LABS: HEMOGLOBIN 14.2 G/DL (13.3-17.7); MEAN PLATELET VOLUME 9.1 FL (7.4-10.4); RED CELL DISTRIBUTION WIDTH 12.6 % (10.0-14.5); WHITE BLOOD COUNT 18.4 10^3/uL (4.3-11.0)
[2019-09-25 06:00] LABS: ALANINE AMINOTRANSFERASE 21 U/L (0-55); ALBUMIN 2.9 GM/DL (3.2-4.5); ALKALINE PHOSPHATASE 89 U/L (40-136); BILIRUBIN,TOTAL 0.7 MG/DL (0.1-1.0); BUN/CREATININE RATIO 34; CALCIUM 8.5 MG/DL (8.5-10.1); CARBON DIOXIDE 21 MMOL/L (21-32); CHLORIDE 107 MMOL/L (98-107); GFR ESTIMATED > 60; GLUCOSE 237 MG/DL (70-105); POTASSIUM 3.3 MMOL/L (3.6-5.0); SODIUM 139 MMOL/L (135-145); TOTAL PROTEIN 5.9 GM/DL (6.4-8.2)
--- NOTE | 2019-09-25 07:11 | Pulmonary Progress Note ---
Subjective Time Seen by a Provider: 07:00 Subjective/Events-last exam PT complains of abdominal pain SOB is stable. No productive cough Sepsis Event Evaluation Height, Weight, BMI Height: '" Weight: lbs. oz. kg; 27.56 BMI Method: Focused Exam Lactate Level 09/24/19 07:50: Lactic Acid Level 1.39 Exam Exam Vital Signs Date Time Temp Pulse Resp B/P (MAP) Pulse Ox O2 Delivery O2 Flow Rate FiO2 09/25/19 04:00 36.2 107 24 159/84 (109) 94 Room Air 09/25/19 01:05 159/78 (105) 09/25/19 01:00 107 09/25/19 00:33 36.7 106 22 200/107 (138) 96 Room Air 09/24/19 20:40 Room Air 09/24/19 20:40 18 09/24/19 20:00 37.1 105 18 156/84 (108) 94 Room Air 09/24/19 19:00 91 09/24/19 16:00 37.2 104 18 159/82 (107) 95 Room Air 09/24/19 12:09 93 09/24/19 12:00 37.0 97 18 133/69 (90) 94 Room Air 09/24/19 08:00 36.8 95 20 185/87 (119) 93 Room Air 09/24/19 08:00 Room Air I & O 09/25/19 07:00 Output Total 1425 ml Balance -1425 ml Height & Weight Height: '" Weight: lbs. oz. kg; 27.56 BMI Method: General Appearance: No Apparent Distress, WD/WN, Anxious, Thin HEENT: PERRL/EOMI Neck: Normal Inspection, Supple Respiratory: Lungs Clear, Normal Breath Sounds, No Respiratory Distress Cardiovascular: Regular Rate, Rhythm, No Edema, No Murmur Capillary Refill: Less Than 3 Seconds Peripheral Pulses: 2+ Dorsalis Pedis (R), 2+ Left Dors-Pedis (L), 2+ Radial Pulses (R), 2+ Radial Pulses (L) Gastrointestinal: other (one drain with serosanguinous fluid, second drain has smaller amount of bile in it today) Extremity: Normal Inspection, Non Tender, No Pedal Edema Neurologic/Psychiatric: Alert, Oriented x3, No Motor/Sensory Deficits, Normal Mood/Affect Skin: Warm/Dry, Pallor Results Lab Laboratory Tests 09/24/19 05:30 09/25/19 05:17 Assessment/Plan Assessment/Plan Cholecystitis s/p open Cholecystectomy - incentive spirometry -Surgery following -Pt is on RA Right arm cellulitis suspecious for DVT/thrombophlebitis -Dopplers pending. -Pt does have peripheral line. -Dr. Dow told RN not to D/C Midline. Bilateral small pleural effusions -Decrease IVF -Give 60mg of lasix x1 -Check BNP Worsening Leukocytosis -Continue Zosyn , diflucan, flagyl auto stopped -Surgery is following -They are planning on gastrograffin study tomorrow to r/o leak -Repeat avendaño cultures Atelectasis with hypoxemia -- incentive spirometry -Consult PT/OT Duodenal perforation s/p repair - Zosyn, Diflucan -Avendaño cultures are pending -Clinimax 75cc/hr -Protonix Leukocytosis - reactive vs sepsis -Continue Abx -Await cultures Anemia -Monitor LOIDA KRUEGER DO Sep 25, 2019 07:11 POS
[2019-09-25] MEDS ORDERED: FUROSEMIDE 40 MG/4 ML INJ (LASIX) IVP ONE (07:15)
[2019-09-25] MEDS ORDERED: KCL 20 MEQ TAB (K-DUR) PO ONE (07:15)
--- NOTE | 2019-09-25 07:22 | Progress Note - Surgery ---
BETTY ZAVALETA,MED STUDENT 09/25/19 0722: Subjective Date Seen by a Provider: Sep 25, 2019 Time Seen by a Provider: 07:00 Subjective/Events-last exam Patient seen and examined. He is improving but is discouraged with his rate of progress. He states his sharp abdominal pains are gone, and the current pain at rest is a 2-3/10. Palpation and moving makes the pain worse, and resting makes it better. He also reports breathing easier this morning and taking a deep breath doesn't cause abdominal pain. He is continuing to use IS. Reports 3 bowel movements overnight and this am. Notes sitting up in bed is getting a little easier but he still requires assistance to do this. Drain #1 has had 10mL of serous output since midnight with no bile tinge, drain #2 has had 30mL of serosanguineous output since midnight. Focused Exam Lactate Level 09/24/19 07:50: Lactic Acid Level 1.39 Objective Exam Vital Signs Date Time Temp Pulse Resp B/P (MAP) Pulse Ox O2 Delivery O2 Flow Rate FiO2 09/25/19 04:00 36.2 107 24 159/84 (109) 94 Room Air 09/25/19 01:05 159/78 (105) 09/25/19 01:00 107 09/25/19 00:33 36.7 106 22 200/107 (138) 96 Room Air 09/24/19 20:40 Room Air 09/24/19 20:40 18 09/24/19 20:00 37.1 105 18 156/84 (108) 94 Room Air 09/24/19 19:00 91 09/24/19 16:00 37.2 104 18 159/82 (107) 95 Room Air 09/24/19 12:09 93 09/24/19 12:00 37.0 97 18 133/69 (90) 94 Room Air 09/24/19 08:00 36.8 95 20 185/87 (119) 93 Room Air 09/24/19 08:00 Room Air I & O 09/25/19 07:00 Output Total 1425 ml Balance -1425 ml Capillary Refill : Less Than 3 SecondsLess Than 3 Seconds General Appearance: No Apparent Distress, WD/WN HEENT: PERRL/EOMI; No Scleral Icterus (L), No Scleral Icterus (R); Other (dry mucous membranes) Respiratory: Lungs Clear, Normal Breath Sounds, No Respiratory Distress Cardiovascular: Regular Rate, Rhythm, No Edema, No Murmur Peripheral Pulses: 2+ Dorsalis Pedis (R), 2+ Left Dors-Pedis (L), 2+ Radial Pulses (R), 2+ Radial Pulses (L) Gastrointestinal: tenderness, other (one drain with serosanguinous fluid, second drain has smaller amount of bile in it today) Extremity: Normal Inspection, Non Tender, No Pedal Edema Neurologic/Psychiatric: Alert, Oriented x3, Normal Mood/Affect Skin: Warm/Dry, Pallor Results Lab Laboratory Tests 09/24/19 07:50: Lactic Acid Level 1.39 09/24/19 11:26: Glucometer 196H 09/24/19 18:11: Glucometer 194H 09/24/19 23:35: Glucometer 166H 09/25/19 05:06: Glucometer 199H 09/25/19 05:17: White Blood Count 18.4H, Red Blood Count 4.51, Hemoglobin 14.2, Hematocrit 41, Mean Corpuscular Volume 92, Mean Corpuscular Hemoglobin 32, Mean Corpuscular Hemoglobin Concent 34, Red Cell Distribution Width 12.6, Platelet Count 286, Mean Platelet Volume 9.1, Sodium Level 139, Potassium Level 3.3L, Chloride Level 107, Carbon Dioxide Level 21, Anion Gap 11, Blood Urea Nitrogen 27H, Creatinine 0.80, Estimat Glomerular Filtration Rate > 60, BUN/Creatinine Ratio 34, Glucose Level 237H, Calcium Level 8.5, Corrected Calcium 9.4, Total Bilirubin 0.7, A spartate Amino Transf (AST/SGOT) 21, Alanine Aminotransferase (ALT/SGPT) 21, Alkaline Phosphatase 89, Total Protein 5.9L, Albumin 2.9L Microbiology 09/20/19 MRSA Screen - Final, Complete MRSA not isolated 09/19/19 Urine Culture - Final, Complete NO GROWTH Assessment/Plan Assessment/Plan Assessment/Plan Pt encouraged to use IS and ambulate. Warm compress ordered for right forearm; ultrasound of forearm ordered but still pending. Continue NPO and NG tube. Clinical Quality Measures DVT/VTE Risk/Contraindication: Risk Factor Score Per Nursin RFS Level Per Nursing on Admit: 2=Moderate KATHLEEN ZHENG DO 09/25/19 0913: Subjective Subjective/Events-last exam Patient abdomen feeling better. Most of pain is feeling he needs to urinated. NPO. [place] drains are serosang. Using IS. Discouraged at overall progress. Increasing leukocytosis. Objective Exam General Appearance: No Apparent Distress, WD/WN HEENT: PERRL/EOMI Respiratory: Chest Non Tender, No Accessory Muscle Use, No Respiratory Distress Cardiovascular: Regular Rate, Rhythm Gastrointestinal: tenderness (incisional and lower abdomen), other (drains serosang) Extremity: Normal Inspection, Non Tender Neurologic/Psychiatric: Alert, Oriented x3 Skin: Normal Color, Warm/Dry Lymphatic: No Adenopathy Assessment/Plan Assessment/Plan Assessment/Plan cholecystitis cholelithiasis duodenal perforation s/p lap kareen c ioc and open haily patch urinary retention place perez patient increasing leukocytosis continue abx will get gastrograffin study to evaluate for leak tomorrow Supervisory-Addendum Brief Verification & Attestation Participated in pt care: history, MDM, physical Personally performed: exam, history, MDM, supervision of care Care discussed with: Medical Student Procedures: n/a Results interpretation: Verified all documentation Verification and Attestation of Medical Student E/M Service A medical student performed and documented this service in my presence. I reviewed and verified all information documented by the medical student and made modifications to such information, when appropriate. I personally performed the physical exam and medical decision making. Kathleen Zheng, Sep 25, 2019,09:11 BETTY ZAVALETA,MED STUDENT Sep 25, 2019 07:22 KATHLEEN GUTIERREZ DO Sep 25, 2019 09:13 POS
[2019-09-25] MEDS: inSUlin ASPART (NovoLOG) 1 UNIT/0.01 ML (CHARGE PER UNIT) SQ SCH ×3 (07:45→18:20)
[2019-09-25] MEDS: SENNA W/DOCUSATE (SENOKOT S) TABLET PO SCH (08:10)
[2019-09-25] MEDS: PANTOPRAZOLE 40 MG (PROTONIX) VIAL IV SCH ×2 (08:28→20:19)
[2019-09-25] MEDS: PIPERACILLIN/TAZO 4.5 GM/NS 100 ML IV SCH ×4 (08:28→16:41)
--- NOTE | 2019-09-25 08:42 | Diagnostic Imaging Report ---
INDICATION: Acute cholecystitis and upper gastrointestinal bleed. Comparison made with prior examination 09/24/2019. FINDINGS: The heart size is normal. Some scarring or atelectasis in the right lung base. There may be a small right pleural effusion. There is no pneumothorax. Mediastinum is unremarkable. The nasogastric tube has tip in the body of stomach. IMPRESSION: Scarring or atelectasis in right lung base with small right pleural effusion. Dictated by: Dictated on workstation # [id number]
[2019-09-25 08:50] LABS: BILIRUBIN,URINE NEGATIVE (NEGATIVE); CLARITY,URINE CLEAR; COLOR,URINE YELLOW; GLUCOSE, URINE (UA) 3+ (NEGATIVE); KETONES,URINE NEGATIVE (NEGATIVE); LEUKOCYTE ESTERASE ,URINE 1+ (NEGATIVE); NITRITE,URINE NEGATIVE (NEGATIVE); PH,URINE 6 (5-9); PROTEIN,URINE 1+ (NEGATIVE)
--- NOTE | 2019-09-25 08:53 | Diagnostic Imaging Report ---
INDICATION: Right upper extremity swelling, history of PICC line. FINDINGS: Right upper extremity venous Doppler with color flow Doppler, compression augmentation and grayscale imaging demonstrates thrombus occluding the right brachial and cephalic veins. Subcutaneous edema is present. IMPRESSION: There is a DVT in the right brachial and cephalic vein. Dictated by: Dictated on workstation # [id number]
[2019-09-25 08:59] LABS: BACTERIA,URINE TRACE /HPF; SQUAMOUS EPITHELIAL CELL,UR RARE /HPF
--- NOTE | 2019-09-25 10:50 | NUR ---
THIS RN SPOKE WITH DR. ZHENG PRIOR TO PLACEMENT OF PICC TO VERIFY THAT HE WOULD LIKE PICC PLACED IN LEFT ARM WITH PT HAVING RIGHT ARM DVT. DR. ZHENG GAVE ORDER TO PLACE PICC IN LEFT ARM. EXPLAINED TO PT THE RISKS OF PICC PLACEMENT AND PT GAVE CONSENT TO PROCEED WITH PROCEDURE.
--- NOTE | 2019-09-25 11:55 | Diagnostic Imaging Report ---
INDICATION: Shortness of breath, PICC line placement. COMPARISON: Correlation is made to earlier this same date. This film is timed at 11:33 AM. FINDINGS: A left PICC catheter has been placed with its distal tip seen at the level of the lower SVC. There is a subpulmonic effusion on the right as well as some elevation of the right diaphragm and basilar partial atelectasis. IMPRESSION: The left PICC line projects in satisfactory position. There is right-sided pleural fluid and subjacent infiltrate or atelectasis. Dictated by: Dictated on workstation # [id number]
[2019-09-25] MEDS: POTASSIUM CL 10MEQ/50ML IVPB 50 ML IV SCH ×8 (12:52→20:19)
[2019-09-25] MEDS: ENOXAPARIN 60 MG/0.6 ML (LOVENOX) SYR SC SCH (12:53)
[2019-09-25] MEDS: FLUCONAZOLE 200 MG/100 ML 50 ML, EMPTY IV BAG (PVC) 1 EA IV SCH ×2 (14:25)
--- NOTE | 2019-09-25 22:01 | Progress Note ---
Subjective Date Seen by a Provider: Sep 25, 2019 Time Seen by a Provider: 08:30 Subjective/Events-last exam PT REPORTS THAT HE IS FEELING MUCH BETTER AFTER THE GREEN CATHETER HAS BEEN PLACED THIS MORNING. HE REPORTS THAT HE IS HAVING QUITE A BIT OF DISCOMFORT IN HIS RIGHT ARM, AND HE NOTES SWELLING STARTING THIS WEEKEND IN HIS RIGHT UPPER ARM AND FOREARM AFTER THE IV INFILTRATED. HE DENIES CHEST PAIN OR ACUTE SHORTNESS OF BREATH. HE CONTINUES TO HAVE ABDOMINAL PAIN. Review of Systems General: No Chills; Fatigue, Malaise HEENT: No Head Aches, No Sore Throat Pulmonary: No Dyspnea, No Cough Cardiovascular: Edema (SEVERE RIGHT ARM); No: Chest Pain, Palpitations Gastrointestinal: Abdominal Pain; No: Nausea Genitourinary: Retention Musculoskeletal: arm pain (RIGHT ARM) Neurological: Weakness; No: Confusion Focused Exam Lactate Level 09/24/19 07:50: Lactic Acid Level 1.39 Objective Exam Last Set of Vital Signs Vital Signs Date Time Temp Pulse Resp B/P (MAP) Pulse Ox O2 Delivery O2 Flow Rate FiO2 09/25/19 21:00 15 09/25/19 20:00 Room Air 09/25/19 19:41 37.4 93 148/52 (84) 96 09/23/19 08:00 3.00 Capillary Refill : Less Than 3 SecondsLess Than 3 Seconds I&O Intake and Output 09/25/19 00:00 Output Total 1660 ml Balance -1660 ml Output Urine Total 1400 ml Drainage Total 260 ml # Voids 2 # Bowel Movements 3 General: Alert, Oriented X3, Cooperative, No Acute Distress HEENT: Atraumatic, PERRLA Neck: Supple Lungs: Clear to Auscultation, Normal Air Movement Heart: Regular Rate Abdomen: Other (DECREASED, SURGICAL SITE WITH DRESSINGS IN PLACE, DRAINS IN PLACE IN UPPER AND RIGHT MID ABDOMEN, ) Neuro: Cranial Nerves 3-12 NL Psych/Mental Status: Mental Status NL, Mood NL Results Lab Laboratory Tests 09/24/19 23:35: Glucometer 166H 09/25/19 05:06: Glucometer 199H 09/25/19 05:17: White Blood Count 18.4H, Red Blood Count 4.51, Hemoglobin 14.2, Hematocrit 41, Mean Corpuscular Volume 92, Mean Corpuscular Hemoglobin 32, Mean Corpuscular Hemoglobin Concent 34, Red Cell Distribution Width 12.6, Platelet Count 286, Mean Platelet Volume 9.1, Sodium Level 139, Potassium Level 3.3L, Chloride Level 107, Carbon Dioxide Level 21, Anion Gap 11, Blood Urea Nitrogen 27H, Creatinine 0.80, Estimat Glomerular Filtration Rate > 60, BUN/Creatinine Ratio 34, Glucose Level 237H, Calcium Level 8.5, Corrected Calcium 9.4, Total Bilirubin 0.7, Aspa rtate Amino Transf (AST/SGOT) 21, Alanine Aminotransferase (ALT/SGPT) 21, Alkaline Phosphatase 89, Total Protein 5.9L, Albumin 2.9L 09/25/19 08:44: Urine Color YELLOW, Urine Clarity CLEAR, Urine pH 6, Urine Specific [place] 1.015L, Urine Protein 1+H, Urine Glucose (UA) 3+H, Urine Ketones NEGATIVE, Urine Nitrite NEGATIVE, Urine Bilirubin NEGATIVE, Urine Urobilinogen NORMAL, Urine Leukocyte Esterase 1+H, Urine RBC (Auto) 4+H, Urine RBC 10-25H, Urine WBC 2-5, Urine Squamous Epithelial Cells RARE, Urine Crystals NONE, Urine Bacteria TRACE, Urine Casts NONE, Urine Mucus NEGATIVE, Urine Culture Indicated NO 09/25/19 11:38: Glucometer 177H 09/25/19 17:26: Glucometer 242H Microbiology 09/24/19 Blood Culture - Preliminary, Resulted No growth 09/20/19 MRSA Screen - Final, Complete MRSA not isolated 09/19/19 Urine Culture - Final, Complete NO GROWTH 09/25/19 Gram Stain, Resulted Pending 09/25/19 Body Fluid Culture - Preliminary, Resulted Assessment/Plan Assessment/Plan Assess & Plan/Chief Complaint EPIGASTRIC ABDOMINAL PAIN ACUTE CHOLECYSTITIS DUODENAL ULCER HYPERTENSION DIABETES MELLITUS ASTHMA LEUKOCYTOSIS URINARY RETENTION RIGHT ARM SWELLING DVT RIGHT UPPER ARM EPIGASTRIC ABDOMINAL PAIN DUE TO ACUTE CHOLECYSTITIS AND DUODENAL ULCER - ADMISSION PER DR. ZHENG, STATUS POST CHOLECYSTECTOMY WITH DUODENAL PATCH (DUODENAL ULCER FOUND DURING SURGERY) - PT ON PROTONIX IV - PT NPO WITH NG TUBE IN PLACE - FLUIDS -CLINIMIX WITH ELECTROLYTES FOR PT TO HAVE SOME GLUCOSE AND PROTEINS IV UNTIL HE CAN TAKE ORAL FOOD/FLUIDS. - DEFER ULTIMATE DECISION ON ADVANCEMENT OF DIET TO DR. ZHENG, HE IS PLANNING ON A GASTROGRAFIN STUDY TOMORROW. HYPERTENSION - HOLD ORAL MEDICATIONS AT THIS TIME. - START PRN IV METOPROLOL IF HIS SBP IS AT OR ABOVE 170. DIABETES MELLITUS - HOLDING METFORMIN, CONSIDER RESTARTING ONCE ABLE TO TAKE ORAL MEDICATIONS - CONTINUE WITH SLIDING SCALE INSULIN PER PROTOCOL ASTHMA - MONITOR SYMPTOMS. LEUKOCYTOSIS - INCREASED TODAY - PT TRENDING UP- PT ON IV ANTIBIOTICS - ZOSYN AND ANTIFUNGAL - DIFLUCAN, MONITOR LABS IF WHITE COUNT FURTHER INCREASED TOMORROW, WILL HAVE TO ADD TO HIS REGIMEN. DVT RIGHT UPPER EXTREMITY - - PT ON LOVENOX DVT TREATMENT DOSE - STARTED TODAY AFTER STAT REPORT WAS CALLED TO BE MY NURSING STAFF. Clinical Quality Measures DVT/VTE Risk/Contraindication: Risk Factor Score Per Nursin RFS Level Per Nursing on Admit: 2=Moderate ARIA RAYMUNDO MD Sep 25, 2019 22:01 POS
[2019-09-26] VITALS: BP 131/65
[2019-09-26] MEDS: PIPERACILLIN/TAZO 4.5 GM/NS 100 ML IV SCH ×6 (00:28→17:00)
[2019-09-26] MEDS: inSUlin ASPART (NovoLOG) 1 UNIT/0.01 ML (CHARGE PER UNIT) SQ SCH ×4 (00:28→18:50)
[2019-09-26] MEDS: AA 4.25% W/LYTES IN D5W IV SOL 1,000 ML IV SCH ×4 (00:28→21:42)
[2019-09-26] MEDS: ENOXAPARIN 60 MG/0.6 ML (LOVENOX) SYR SC SCH ×2 (00:30→13:06)
[2019-09-26 04:00] VITALS: BP 151/77
[2019-09-26 04:45] LABS: BASOPHILS % (AUTO) 0 % (0-10); EOSINOPHILS # (AUTO) 0.3 10^3/uL (0.0-0.3); EOSINOPHILS % (AUTO) 2 % (0-10); HEMATOCRIT 36 % (40-54); LYMPHOCYTES # (AUTO) 0.9 X 10^3 (1.0-4.0); LYMPHOCYTES % (AUTO) 6 % (12-44); MEAN CORPUSCULAR HEMOGLOBIN 31 PG (25-34); MEAN CORPUSCULAR HGB CONC 34 G/DL (32-36); MEAN CORPUSCULAR VOLUME 92 FL (80-99); MEAN PLATELET VOLUME 8.9 FL (7.4-10.4); MONOCYTES # (AUTO) 1.3 X 10^3 (0.0-1.0); MONOCYTES % (AUTO) 9 % (0-12); NEUTROPHILS # (AUTO) 12.5 X 10^3 (1.8-7.8); NEUTROPHILS % (AUTO) 83 % (42-75); PLATELET COUNT 276 10^3/uL (130-400); RED CELL DISTRIBUTION WIDTH 12.7 % (10.0-14.5)
[2019-09-26 05:05] LABS: ALANINE AMINOTRANSFERASE 19 U/L (0-55); ALBUMIN 2.4 GM/DL (3.2-4.5); ALKALINE PHOSPHATASE 84 U/L (40-136); BILIRUBIN,TOTAL 0.6 MG/DL (0.1-1.0); BUN/CREATININE RATIO 39; CARBON DIOXIDE 23 MMOL/L (21-32); CHLORIDE 110 MMOL/L (98-107); GFR ESTIMATED > 60; GLUCOSE 189 MG/DL (70-105); MAGNESIUM 2.2 MG/DL (1.6-2.4); PHOSPHORUS 2.7 MG/DL (2.3-4.7); POTASSIUM 3.7 MMOL/L (3.6-5.0); SODIUM 142 MMOL/L (135-145)
[2019-09-26 05:18] LABS: BAND NEUTROPHILS 4 %; EOSINOPHILS % (MANUAL) 1 %; LYMPHOCYTES % (MANUAL) 6 %; MONOCYTES % (MANUAL) 7 %; NEUTROPHILS % (MANUAL) 82 %; RBC MORPH NORMAL
--- NOTE | 2019-09-26 06:59 | Progress Note - Surgery ---
BETTY ZAVALETA,MED STUDENT 09/26/19 0659: Subjective Date Seen by a Provider: Sep 26, 2019 Time Seen by a Provider: 06:45 Subjective/Events-last exam Patient seen and examined. He believes his abdominal pain overall is sightly better today, although he still reports tenderness of the incisions. At the time of exam he was currently beginning to have a bowel movement. He had not had one overnight. He states overnight he experienced what felt like bloating and gas, and passing gas helped with this pain some. Perez catheter is still in place with good output. NG tube is still in place. Drains continue to have serosanguineous output. WBC is now 15.0, down from a max of 18.4 yesterday. Focused Exam Lactate Level 09/24/19 07:50: Lactic Acid Level 1.39 Objective Exam Vital Signs Date Time Temp Pulse Resp B/P (MAP) Pulse Ox O2 Delivery O2 Flow Rate FiO2 09/26/19 01:00 84 09/25/19 21:00 15 09/25/19 20:00 Room Air 09/25/19 19:41 37.4 93 16 148/52 (84) 96 Room Air 09/25/19 19:00 90 09/25/19 16:00 37.2 97 20 141/57 (85) 96 Room Air 09/25/19 13:00 102 09/25/19 12:00 36.3 92 24 129/60 (83) 95 Room Air 09/25/19 08:00 Room Air 09/25/19 08:00 36.1 101 18 151/78 (102) 94 Room Air 09/25/19 07:00 18 09/25/19 07:00 110 I & O 09/26/19 07:00 Intake Total 2640 ml Output Total 3440 ml Balance -800 ml Capillary Refill : Less Than 3 SecondsLess Than 3 Seconds General Appearance: No Apparent Distress, WD/WN HEENT: PERRL/EOMI; No Moist Mucous Membranes, No Scleral Icterus (L), No Scleral Icterus (R) Neck: Normal Inspection Respiratory: Lungs Clear, Normal Breath Sounds, No Respiratory Distress Cardiovascular: Regular Rate, Rhythm, No Edema, No Murmur Peripheral Pulses: 2+ Dorsalis Pedis (R), 2+ Left Dors-Pedis (L), 2+ Radial Pulses (R), 2+ Radial Pulses (L) Gastrointestinal: tenderness, other (drains with serosanguineous fluid output) Extremity: Normal Inspection, Non Tender, No Calf Tenderness, No Pedal Edema Neurologic/Psychiatric: Alert, Oriented x3, Normal Mood/Affect Skin: Warm/Dry, Erythema (erythema and swelling of R forearm), Pallor Results Lab Laboratory Tests 09/25/19 08:44: Urine Color YELLOW, Urine Clarity CLEAR, Urine pH 6, Urine Specific [place] 1.015L, Urine Protein 1+H, Urine Glucose (UA) 3+H, Urine Ketones NEGATIVE, Urine Nitrite NEGATIVE, Urine Bilirubin NEGATIVE, Urine Urobilinogen NORMAL, Urine Leukocyte Esterase 1+H, Urine RBC (Auto) 4+H, Urine RBC 10-25H, Urine WBC 2-5, Urine Squamous Epithelial Cells RARE, Urine Crystals NONE, Urine Bacteria TRACE, Urine Casts NONE, Urine Mucus NEGATIVE, Urine Culture Indicated NO 09/25/19 11:38: Glucometer 177H 09/25/19 17:26: Glucometer 242H 09/26/19 00:27: Glucometer 151H 09/26/19 04:35: White Blood Count 15.0H, Red Blood Count 3.87L, Hemoglobin 12.0L, Hematocrit 36L , Mean Corpuscular Volume 92, Mean Corpuscular Hemoglobin 31, Mean Corpuscular Hemoglobin Concent 34, Red Cell Distribution Width 12.7, Platelet Count 276, Mean Platelet Volume 8.9, Neutrophils (%) (Auto) 83H, Lymphocytes (%) (Auto) 6L, Monocytes (%) (Auto) 9, Eosinophils (%) (Auto) 2, Basophils (%) (Auto) 0, Neutrophils # (Auto) 12.5H, Lymphocytes # (Auto) 0.9L, Monocytes # (Auto) 1.3H, Eosinophils # (Auto) 0.3, Basophils # (Auto) 0.0, Neutrophils % (Manual) 82, Lymphocytes % (Manual) 6, Monocytes % (Manual) 7, Eosinophils % (Manual) 1, Band Neutrophils 4, Blood Morphology Comment NORMAL, Sodium Level 142, Potassium Level 3.7, Chloride Level 110H, Carbon Dioxide Level 23, Anion Gap 9, Blood Urea Nitrogen 27H, Creatinine 0.70, Estimat Glomerular Filtration Rate > 60, BUN/Creatinine Ratio 39, Glucose Level 189H, Calcium Level 8.0L, Corrected Calcium 9.3, Phosphorus Level 2.7, Magnesium Level 2.2, Total Bilirubin 0.6, Aspartate Amino Transf (AST/SGOT) 20, Alanine Aminotransferase (ALT/SGPT) 19, Alkaline Phosphatase 84, Total Protein 5.0L, Albumin 2.4L Microbiology 09/24/19 Blood Culture - Preliminary, Resulted No growth 09/20/19 MRSA Screen - Final, Complete MRSA not isolated 09/19/19 Urine Culture - Final, Complete NO GROWTH 09/25/19 Gram Stain - Final, Resulted 09/25/19 Body Fluid Culture - Preliminary, Resulted Assessment/Plan Assessment/Plan Assessment/Plan cholecystitis cholelithiasis duodenal perforation s/p lap kareen c ioc and open haily patch upper arm DVT, started on Lovenox urinary retention, perez in place with good output WBC count decreased to 15.0 today, continue antibiotics Pending results of gastrograffin study today, advance to clear liquid diet Clinical Quality Measures DVT/VTE Risk/Contraindication: Risk Factor Score Per Nursin RFS Level Per Nursing on Admit: 2=Moderate KATHLEEN ZHENG DO 09/26/192031: Subjective Subjective/Events-last exam Patient feeling better today. Having flatus and bm he states. Pain better controlled. Wbc slightly down today. Drainage with questionable bile tinge. Perez due to urinary retention. NG tube in place. Small bowel follow through with leak demonstrated. Objective Exam General Appearance: No Apparent Distress HEENT: PERRL/EOMI Neck: Normal Inspection Respiratory: Chest Non Tender, No Accessory Muscle Use, No Respiratory Distress Cardiovascular: Regular Rate, Rhythm Gastrointestinal: tenderness, other (drains with serosanguineous fluid output, question slight bile in one) Extremity: Normal Inspection, Non Tender, No Calf Tenderness Neurologic/Psychiatric: Alert, Oriented x3, Normal Mood/Affect Skin: Warm/Dry, Erythema (erythema and swelling of R forearm) Lymphatic: No Adenopathy Assessment/Plan Assessment/Plan Assessment/Plan cholecystitis cholelithiasis duodenal perforation s/p lap kareen c ioc and open haily patch upper arm DVT, started on Lovenox urinary retention, perez still with small leak on Gastrografin study keep npo, ng tube and liu drains start tpn continue conservative measures for 5 days and repeat Gastrografin study Supervisory-Addendum Brief Verification & Attestation Participated in pt care: history, MDM, physical Personally performed: exam, history, MDM, supervision of care Care discussed with: Medical Student Procedures: n/a Results interpretation: Verified all documentation Verification and Attestation of Medical Student E/M Service A medical student performed and documented this service in my presence. I reviewed and verified all information documented by the medical student and made modifications to such information, when appropriate. I personally performed the physical exam and medical decision making. Kathleen Zheng, Sep 26, 2019,20:32 BETTY ZAVALETA,MED STUDENT Sep 26, 2019 06:59 KATHLEEN GUTIERREZ DO Sep 26, 2019 20:32 POS
--- NOTE | 2019-09-26 07:29 | Diagnostic Imaging Report ---
INDICATION: Upper GI bleed. COMPARISON: 09/25/2019. FINDINGS: Single frontal radiographic view of the chest was obtained and demonstrates normal cardiac silhouette and pulmonary vasculature. Lungs show low inspiratory volumes with mild right basilar effusion. There is no large effusion on the left. No pneumothorax is seen on either side. Lungs are otherwise clear. Gastric tube is seen with tip in the stomach and side port likely above the diaphragmatic hiatus. Surgical tiara and drains are noted projecting over the upper abdomen. Distal tip of the left upper extremity PICC line is curved and may project into the azygos vein. IMPRESSION: 1. Low lung volumes with probable small right basilar effusion. 2. Interval change to appearance of the left upper extremity PICC line raising suspicion that the line extends into the azygos vein. Correlation with a lateral view may be of benefit. Dictated by: Dictated on workstation # [id number]
[2019-09-26 08:00] VITALS: BP 151/77
--- NOTE | 2019-09-26 08:07 | NUR ---
Patient off floor at this time to radiology.
--- NOTE | 2019-09-26 09:03 | Pulmonary Progress Note ---
ALINA WOO MED STUDENT 09/26/19 0903: Subjective Date Seen by a Provider: Sep 26, 2019 Time Seen by a Provider: 08:58 Subjective/Events-last exam Patient in no acute distress. Patient reports that he is not experiencing any shortness of breath and denies cough. He states that he has been using incentive spirometer on occasion. He reports a large amount of urine being passed upon catheter insertion yesterday. Patient was taken for small bowel follow through study this morning. Sepsis Event Evaluation Height, Weight, BMI Height: '" Weight: lbs. oz. kg; 27.56 BMI Method: Focused Exam Lactate Level 09/24/19 07:50: Lactic Acid Level 1.39 Exam Exam Vital Signs Date Time Temp Pulse Resp B/P (MAP) Pulse Ox O2 Delivery O2 Flow Rate FiO2 09/26/19 07:00 106 09/26/19 04:00 36.8 86 18 151/77 (101) 95 Room Air 09/26/19 01:00 84 09/26/19 00:00 36.8 83 19 131/65 (87) 95 Room Air 09/25/19 21:00 15 09/25/19 20:00 Room Air 09/25/19 19:41 37.4 93 16 148/52 (84) 96 Room Air 09/25/19 19:00 90 09/25/19 16:00 37.2 97 20 141/57 (85) 96 Room Air 09/25/19 13:00 102 09/25/19 12:00 36.3 92 24 129/60 (83) 95 Room Air I & O 09/26/19 07:00 Intake Total 2640 ml Output Total 3440 ml Balance -800 ml Height & Weight Height: '" Weight: lbs. oz. kg; 27.56 BMI Method: General Appearance: No Apparent Distress, WD/WN HEENT: PERRL/EOMI; No Moist Mucous Membranes, No Scleral Icterus (L), No Scleral Icterus (R) Neck: Normal Inspection Respiratory: Lungs Clear, Normal Breath Sounds, No Respiratory Distress Cardiovascular: Regular Rate, Rhythm, No Edema, No Murmur Capillary Refill: Less Than 3 Seconds Peripheral Pulses: 2+ Dorsalis Pedis (R), 2+ Left Dors-Pedis (L), 2+ Radial Pulses (R), 2+ Radial Pulses (L) Gastrointestinal: tenderness, other (drains with serosanguineous fluid output) Extremity: Normal Inspection, Non Tender, No Calf Tenderness, No Pedal Edema Neurologic/Psychiatric: Alert, Oriented x3, Normal Mood/Affect Skin: Warm/Dry, Erythema (erythema and swelling of R forearm), Pallor Other comments 2 [place] drains. 1. 75 mL serosanguineous drainage 2. 75 mL bilious drainage [place] with 125mL yellow urine 09/25 In: 520mL Out: 2840mL Total: 2320mL Results Lab Laboratory Tests 09/25/19 05:17 09/26/19 04:35 Radiology 08/26/19 Chest Xray IMPRESSION: 1. Low lung volumes with probable small right basilar effusion. 2. Interval change to appearance of the left upper extremity PICC line raising suspicion that the line extends into the azygos vein. Correlation with a lateral view may be of benefit. Assessment/Plan Assessment/Plan Cholecystitis s/p open Cholecystectomy 09/20/19 - incentive spirometry -Surgery following -Pt is on RA Right arm cellulitis suspecious for DVT/thrombophlebitis -Doppler showed DVT x2, right brachial and right cephalic vein -Lovenox 60mg started 09/26/19 -Pt does have peripheral line. -Dr. Dow told RN not to D/C Midline. Bilateral small pleural effusions -Decrease IVF -Received 60mg Lasix 09/25/19 - 09/25/19 I&Os In: 520 Out: 2840 Total: -2320 -BNP 72.5 on 09/24/19 Leukocytosis -Continue Zosyn , diflucan, flagyl auto stopped -Surgery is following -They are planning on gastrograffin study today to r/o leak -09/25/19 [place] drain gram stain unremarkable, culture no growth to date -09/24/19 Blood cultures no growth to date. Atelectasis with hypoxemia -Encourage incentive spirometry -Consult PT/OT Duodenal perforation s/p repair - Zosyn, Diflucan -Clinimax 75cc/hr -Protonix Anemia -Monitor LOIDA LINCOLN DO 09/26/19 1543: Assessment/Plan Assessment/Plan Radiology Report: Focal extravasation of contrast into the gallbladder fossa from the region of the duodenal bulb, suspect for perforated viscus. Findings were discussed directly with Dr. Juarez. Cholecystitis s/p open Cholecystectomy 09/20/19 - incentive spirometry -Surgery following -Pt is on RA Right arm cellulitis suspecious for DVT/thrombophlebitis -Doppler showed DVT x2, right brachial and right cephalic vein -Lovenox 60mg started 09/26/19 Bilateral small pleural effusions -Decrease IVF -Received 60mg Lasix 09/25/19 - 09/25/19 I&Os In: 520 Out: 2840 Total: -2320 -BNP 72.5 on 09/24/19 Leukocytosis -Continue Zosyn , diflucan, flagyl auto stopped -Surgery is following -09/25/19 [place] drain gram stain unremarkable, culture no growth to date -09/24/19 Blood cultures no growth to date. Atelectasis with hypoxemia -Encourage incentive spirometry -Consult PT/OT Duodenal perforation s/p repair - Zosyn, Diflucan -Clinimax 75cc/hr -Protonix Anemia -Monitor Supervisory-Addendum Brief Verification & Attestation Participated in pt care: history, physical Personally performed: exam, history Care discussed with: Medical Student Procedures: n/a, performed Verification and Attestation of Medical Student E/M Service A medical student performed and documented this service in my presence. I reviewed and verified all information documented by the medical student and made modifications to such information, when appropriate. I personally performed the physical exam and medical decision making. Loida Lincoln, Sep 26, 2019,15:43 ALINA WOO MED STUDENT Sep 26, 2019 09:03 LOIDA LEWIS DO Sep 26, 2019 15:43 POS
--- NOTE | 2019-09-26 09:10 | NUR ---
Patient back in room from radiology at this time.
--- NOTE | 2019-09-26 09:14 | Progress Note - Hospitalist ---
REHANA RAMIREZ [facility] 09/26/19 0914: Subjective HPI/CC On Admission Date Seen by Provider: Sep 26, 2019 Time Seen by Provider: 07:00 abdominal pain Subjective/Events-last exam Patient stated that he was doing ok, but tired of his current circumstances. Patient stated that he has been having bowel movements, but with little substance. Patient felt relief in Lower quadrants of the abdomen post insertion of perez catheter yesterday. Patient still is NPO. Gastrografin studies are being done to assess bowels. Patient states that his arm is feeling and looking better since yesterday. He reports no extra pain or swelling. He stated that he has mild diffuse abdominal tenderness, but its not bad enough to pain medication. Patient was consulted on the importance of using incentive spirometer and did a few practice runs. He was only able to get to 500 cc. Review of Systems General: No Chills, No Night Sweats, No Fatigue, No Malaise, No Appetite, No Other HEENT: No Head Aches, No Visual Changes, No Eye Pain, No Ear Pain, No Dysphasia , No Sinus Congestion, No Post Nasal Drip, No Sore Throat, No Other Pulmonary: No Dyspnea, No Cough, No Pleuritic Chest Pain, No Other Cardiovascular: No: Chest Pain, Palpitations, Orthopnea, Paroxysmal Noc. Dyspnea, Edema, Lt Headedness, Other Gastrointestinal: No: Nausea, Vomiting, Abdominal Pain, Diarrhea, Constipation, Melena, Hematochezia, Other (loose stools with no substance ) Genitourinary: No Dysuria, No Frequency, No Incontinence, No Hematuria, No Retention, No Other Musculoskeletal: No: other, neck pain, shoulder pain, arm pain, back pain, hand pain, leg pain, foot pain Neurological: No: Weakness, Numbness, Incoordination, Change in speech, Confusion, Seizures, Other Focused Exam Lactate Level 09/24/19 07:50: Lactic Acid Level 1.39 Respiratory: Chest Non Tender, Lungs Clear, Normal Breath Sounds, No Accessory Muscle Use, No Respiratory Distress Cardiovascular: Regular Rate, Rhythm, No Edema, No Gallop, No JVD, No Murmur, Normal Peripheral Pulses Peripheral Pulses: 2+ Radial Pulses (R), 2+ Radial Pulses (L) Skin: normal color, warm/dry Objective Exam Vital Signs Vital Signs Date Time Temp Pulse Resp B/P (MAP) Pulse Ox O2 Delivery O2 Flow Rate FiO2 09/26/19 07:00 106 09/26/19 04:00 36.8 18 151/77 (101) 95 Room Air 09/23/19 08:00 3.00 Capillary Refill : Less Than 3 SecondsLess Than 3 Seconds General Appearance: Anxious, Mild Distress HEENT: Other (cracked lips ) Respiratory: Chest Non Tender, Lungs Clear, Normal Breath Sounds, No Accessory Muscle Use, No Respiratory Distress Cardiovascular: Regular Rate, Rhythm, No Edema, No Gallop, No JVD, No Murmur, Normal Peripheral Pulses Gastrointestinal: Normal Bowel Sounds, No Organomegaly, No Pulsatile Mass, Soft, Tenderness Extremity: Normal Capillary Refill, Normal Inspection, Normal Range of Motion, Non Tender Neurologic/Psychiatric: Alert, Oriented x3, No Motor/Sensory Deficits Skin: Normal Color, Warm/Dry Lymphatic: No Adenopathy Results/Procedures Lab Laboratory Tests 09/26/19 04:35 Patient resulted labs reviewed. Assessment/Plan Assessment and Plan Assess & Plan/Chief Complaint Assessment: 1. Acute Cholecystitis + Duodenal Ulcer - NPO until gastrografin study - Monitor drainage in [place] drains. 2. Bladder Ileus: - Maintain perez cath 3. DVT UE of the Right: - D/C all IV's on that side and monitor for worsening - Monitor the peripheral site of infultrated IV site (R) 4. History of HTN: Manage BP with Hydralazine 5. History of T2DM: - Monitor daily Glucose - Treat with insulin as needed 6. History of HLP: - Monitor LFT's - Continue home regiment. Clinical Quality Measures DVT/VTE Risk/Contraindication: Risk Factor Score Per Nursin RFS Level Per Nursing on Admit: 2=Moderate ARIA RAYMUNDO MD 09/27/192024: Subjective HPI/CC On Admission Time Seen by Provider: 08:00 Subjective/Events-last exam PT REPORTS THAT HE IS FEELING MUCH BETTER AT THIS TIME. HE REPORTS THAT HIS ARM SWELLING HAS IMPROVED. THE GASTROGRAFIN STUDIES WERE BACK WHEN I EVALUATED THE PATIENT AND HE IS SUPPOSED TO BE STARTED ON TPN. Review of Systems General: Fatigue HEENT: No Head Aches Pulmonary: No Dyspnea, No Cough Cardiovascular: No: Chest Pain Gastrointestinal: Abdominal Pain Neurological: Weakness; No: Confusion Objective Exam General Appearance: WD/WN, Mild Distress (IMPROVED) HEENT: PERRL/EOMI, Pharynx Normal, Other (NG TUBE IN RIGHT NARE) Respiratory: Chest Non Tender, Lungs Clear, Normal Breath Sounds Cardiovascular: Regular Rate, Rhythm Gastrointestinal: Tenderness (WITH SURGICAL SITE HEALING WELL, NO EYRTHEMA, DRAIN TUBES IN RIGHT LOWER ABDOMEN WITH SEROSANGUINOUS DRAINAGE AND BILIARY DRAINAGE) Extremity: Normal Capillary Refill, Normal Range of Motion, Non Tender Neurologic/Psychiatric: Alert, Oriented x3, No Motor/Sensory Deficits Skin: Normal Color, Warm/Dry Lymphatic: No Adenopathy Assessment/Plan Assessment and Plan Assess & Plan/Chief Complaint AGREE WITH MEDICAL STUDENT DOCUMENTATION Supervisory-Addendum Brief Verification & Attestation Participated in pt care: history, MDM, physical Personally performed: exam, history, MDM, supervision of care Care discussed with: Medical Student Procedures: performed Results interpretation: Verified all documentation I HAVE PERSONALLY EXAMINED VIC AND AGREE WITH MEDICAL STUDENT DOCUMENTATION. THE PATIENT IS FRAIL, BUT DOES APPEAR TO BE IMPROVED FROM ADMISSION. HIS STOMACH DISTENTION HAS IMPROVED AND HE DOES NOT HAVE CHEST PAIN, HIS SHORTNESS OF BREATH HAS IMPROVED AND HIS ARM SWELLING IS IMPROVED WELL. REHANA RAMIREZ MED STUD Sep 26, 2019 09:14 ARIA TRUJILLO MD Sep 27, 2019 20:25 POS
[2019-09-26] MEDS ORDERED: DIATRIZOATE MEGLUM/SODIUM 37% 120 ML (GASTROGRAFIN) NG ONE (09:30)
[2019-09-26] MEDS: SENNA W/DOCUSATE (SENOKOT S) TABLET PO SCH (09:39)
[2019-09-26] MEDS: PANTOPRAZOLE 40 MG (PROTONIX) VIAL IV SCH ×2 (09:40→21:42)
--- NOTE | 2019-09-26 10:36 | Diagnostic Imaging Report ---
INDICATION: Duodenal perforation. FINDINGS: Limited Gastrografin small bowel series was performed. This was done via the nasogastric tube. Stomach is grossly normal in appearance. There is focal extravasation from the duodenal bulb into the gallbladder fossa. IMPRESSION: Focal extravasation of contrast into the gallbladder fossa from the region of the duodenal bulb, suspect for perforated viscus. Findings were discussed directly with Dr. Juarez. Dictated by: Dictated on workstation # [id number]
[2019-09-26 12:00] VITALS: BP 138/81
[2019-09-26] MEDS: FLUCONAZOLE 200 MG/100 ML 50 ML, EMPTY IV BAG (PVC) 1 EA IV SCH ×2 (14:47)
[2019-09-26] MEDS ORDERED: TPN IV SCH (15:00)
[2019-09-26 16:00] VITALS: BP 172/81
[2019-09-26 20:00] VITALS: BP 182/67
[2019-09-27 00:15] VITALS: BP 184/72
[2019-09-27] MEDS: inSUlin ASPART (NovoLOG) 1 UNIT/0.01 ML (CHARGE PER UNIT) SQ SCH ×4 (00:28→18:04)
[2019-09-27] MEDS: PIPERACILLIN/TAZO 4.5 GM/NS 100 ML IV SCH ×6 (00:28→16:57)
[2019-09-27] MEDS: meTOprolol 5 MG/5 ML (LOPRESSOR) VIAL IV PRN (00:28)
[2019-09-27] MEDS: ENOXAPARIN 60 MG/0.6 ML (LOVENOX) SYR SC SCH ×2 (00:28→12:43)
[2019-09-27 04:00] VITALS: BP 183/73
[2019-09-27 05:11] LABS: BASOPHILS % (AUTO) 0 % (0-10); EOSINOPHILS # (AUTO) 0.4 10^3/uL (0.0-0.3); EOSINOPHILS % (AUTO) 3 % (0-10); HEMATOCRIT 35 % (40-54); HEMOGLOBIN 11.8 G/DL (13.3-17.7); LYMPHOCYTES # (AUTO) 0.7 X 10^3 (1.0-4.0); LYMPHOCYTES % (AUTO) 6 % (12-44); MEAN CORPUSCULAR HEMOGLOBIN 31 PG (25-34); MEAN CORPUSCULAR HGB CONC 34 G/DL (32-36); MEAN CORPUSCULAR VOLUME 93 FL (80-99); MEAN PLATELET VOLUME 9.2 FL (7.4-10.4); MONOCYTES # (AUTO) 1.2 X 10^3 (0.0-1.0); MONOCYTES % (AUTO) 9 % (0-12); NEUTROPHILS # (AUTO) 10.8 X 10^3 (1.8-7.8); NEUTROPHILS % (AUTO) 82 % (42-75); PLATELET COUNT 222 10^3/uL (130-400); RED CELL DISTRIBUTION WIDTH 12.5 % (10.0-14.5); WHITE BLOOD COUNT 13.2 10^3/uL (4.3-11.0)
[2019-09-27 05:21] LABS: SMEAR SCAN COMMENT N
[2019-09-27 05:30] LABS: INR 1.4 (0.8-1.4); PROTHROMBIN TIME PATIENT 17.5 SEC (12.2-14.7)
[2019-09-27 05:43] LABS: ALANINE AMINOTRANSFERASE 19 U/L (0-55); ALBUMIN 2.5 GM/DL (3.2-4.5); ALKALINE PHOSPHATASE 88 U/L (40-136); BILIRUBIN,TOTAL 0.6 MG/DL (0.1-1.0); BUN/CREATININE RATIO 36; CARBON DIOXIDE 23 MMOL/L (21-32); CHLORIDE 112 MMOL/L (98-107); CREATININE SERUM 0.67 MG/DL (0.60-1.30); GFR ESTIMATED > 60; GLUCOSE 143 MG/DL (70-105); MAGNESIUM 2.2 MG/DL (1.6-2.4); PHOSPHORUS 3.3 MG/DL (2.3-4.7); POTASSIUM 3.6 MMOL/L (3.6-5.0); SODIUM 145 MMOL/L (135-145); TOTAL PROTEIN 5.2 GM/DL (6.4-8.2); TRIGLYCERIDES 81 MG/DL (<150)
[2019-09-27] MEDS: AA 4.25% W/LYTES IN D5W IV SOL 1,000 ML IV SCH ×2 (06:06→13:40)
--- NOTE | 2019-09-27 06:57 | Diagnostic Imaging Report ---
Portable erect AP chest at 446 hours. INDICATION: Upper gastrointestinal bleed. FINDINGS: The cardiomegaly and the right lower lobe atelectasis/infiltrate and fluid seen on the prior exam of 09/26/2019 are again evident and essentially no different. The lungs are otherwise generally clear. The mediastinum is not widened. The osseous structures are intact. The prior exam suggested that the central venous catheter on the left may be within the azygos vein. In the interval since the prior exam, the central venous catheter on the left has been repositioned. The tip of the catheter now overlies the distal superior vena cava. The OG line is unchanged. IMPRESSION: 1. The overall appearance of the chest has not changed significantly since the prior exam. No new abnormality has developed. 2. The central venous catheter on the left has been repositioned. The tip of the catheter now overlies the distal superior vena cava. Dictated by: Dictated on workstation # [id number]
--- NOTE | 2019-09-27 07:45 | Progress Note - Surgery ---
BETTY ZAVALETA,MED STUDENT 09/27/19 0745: Subjective Date Seen by a Provider: Sep 27, 2019 Time Seen by a Provider: 07:25 Subjective/Events-last exam Mr. Ramos appears to be doing better this am, he is conversing easier and asked to be shown bedside remote instructions in order to watch TV, and mentioned he was going to call his later this morning. He states his pain continues to slowly improve and notes that sitting up at side of bed and standing up with assistance isn't causing as much abdominal pain. Reports 2 BM's this morning, and perez catheter is still in place with good output. Drain #1 contained bile-tinged fluid and produced a little more than 100mL since last night per nursing staff. Drain #2 contained serosanguineous fluid. WBC continues to drop and is 13.2 this am, down from 15.0 yesterday. The results of the gastrograffin study were discussed with the patient and he expressed his understanding. Focused Exam Lactate Level 09/24/19 07:50: Lactic Acid Level 1.39 Objective Exam Vital Signs Date Time Temp Pulse Resp B/P (MAP) Pulse Ox O2 Delivery O2 Flow Rate FiO2 09/27/19 04:00 36.9 88 20 183/73 (109) 96 Room Air 09/27/19 01:00 75 09/27/19 00:15 36.9 85 28 184/72 (109) 94 Room Air 09/26/19 21:40 Room Air 09/26/19 20:00 36.9 90 20 182/67 (105) 94 Room Air 09/26/19 16:00 37.0 91 18 172/81 (111) 94 Room Air 09/26/19 13:00 85 09/26/19 12:00 35.6 89 18 138/81 (100) 94 Room Air 09/26/19 08:00 35.5 87 16 151/77 (101) 96 Room Air 09/26/19 07:50 Room Air I & O 09/27/19 07:00 Output Total 4735 ml Balance -4735 ml Capillary Refill : Less Than 3 SecondsLess Than 3 Seconds General Appearance: No Apparent Distress HEENT: PERRL/EOMI; No Moist Mucous Membranes, No Scleral Icterus (L), No Scle ral Icterus (R) Neck: Normal Inspection Respiratory: Chest Non Tender, No Accessory Muscle Use, No Respiratory Distress Cardiovascular: Regular Rate, Rhythm; No Tachycardia Peripheral Pulses: 2+ Dorsalis Pedis (R), 2+ Left Dors-Pedis (L), 2+ Radial Pulses (R), 2+ Radial Pulses (L) Gastrointestinal: soft, tenderness, other (drains with serosanguineous fluid output, question slight bile in one) Extremity: Normal Inspection, Non Tender, No Calf Tenderness Neurologic/Psychiatric: Alert, Oriented x3, Normal Mood/Affect Skin: Warm/Dry, Erythema (erythema and swelling of R forearm) Lymphatic: No Adenopathy Results Lab Laboratory Tests 09/26/19 11:39: Glucometer 173H 09/26/19 18:21: Glucometer 163H 09/27/19 00:19: Glucometer 185H 09/27/19 04:30: White Blood Count 13.2H, Red Blood Count 3.80L, Hemoglobin 11.8L, Hematocrit 35L , Mean Corpuscular Volume 93, Mean Corpuscular Hemoglobin 31, Mean Corpuscular Hemoglobin Concent 34, Red Cell Distribution Width 12.5, Platelet Count 222, Mean Platelet Volume 9.2, Neutrophils (%) (Auto) 82H, Lymphocytes (%) (Auto) 6L, Monocytes (%) (Auto) 9, Eosinophils (%) (Auto) 3, Basophils (%) (Auto) 0, Neutrophils # (Auto) 10.8H, Lymphocytes # (Auto) 0.7L, Monocytes # (Auto) 1.2H, Eosinophils # (Auto) 0.4H, Basophils # (Auto) 0.0, Prothrombin Time 17.5H, INR Comment 1.4, Sodium Level 145, Potassium Level 3.6, Chloride Level 112H, Carbon Dioxide Level 23, Anion Gap 10, Blood Urea Nitrogen 24H, Creatinine 0.67, Estimat Glomerular Filtration Rate > 60, BUN/Creatinine Ratio 36, Glucose Level 143H, Calcium Level 8.0L, Corrected Calcium 9.2, Phosphorus Level 3.3, Magnesium Level 2.2, Total Bilirubin 0.6, Aspartate Amino Transf (AST/SGOT) 24, Alanine Aminotransferase (ALT/SGPT) 19, Alkaline Phosphatase 88, Total Protein 5.2L, Albumin 2.5L, Triglycerides Level 81, Smear Scan N Microbiology 09/24/19 Blood Culture - Preliminary, Resulted No growth 09/20/19 MRSA Screen - Final, Complete MRSA not isolated 09/19/19 Urine Culture - Final, Complete NO GROWTH 09/25/19 Gram Stain - Final, Resulted 09/25/19 Body Fluid Culture - Preliminary, Resulted YEAST Assessment/Plan Assessment/Plan Assessment/Plan cholecystitis cholelithiasis duodenal perforation s/p lap kareen c ioc and open haily patch upper arm DVT, started on Lovenox urinary retention, perez small leak revealed on Gastrografin study, results discussed with patient keep npo, ng tube amari drains, and perez catheter in place start tpn continue advancement with movement and IS use as tolerated Clinical Quality Measures DVT/VTE Risk/Contraindication: Risk Factor Score Per Nursin RFS Level Per Nursing on Admit: 2=Moderate KATHLEEN ZHENG DO 09/27/192122: Subjective Subjective/Events-last exam Feeling better. Pain improving. NPO. NG tube to liws and has AMARI drains in abdomen. WBC down slightly. Leak on Gastrografin study which he understands. Amari drain with slight bile tinge. Denies n/v fever sweats chills shortness of breath or chest pain. Objective Exam General Appearance: No Apparent Distress HEENT: PERRL/EOMI Neck: Normal Inspection Respiratory: Chest Non Tender, No Accessory Muscle Use, No Respiratory Distress Cardiovascular: Regular Rate, Rhythm Gastrointestinal: soft, tenderness (incisional, c/d/i), other (drain with serosanguineous fluid output, other with tinge of bile in it) Extremity: No Calf Tenderness, Other (right arm with slight erythema and tenderness) Skin: Warm/Dry, Erythema (erythema and swelling of R forearm) Lymphatic: No Adenopathy Assessment/Plan Assessment/Plan Assessment/Plan cholecystitis cholelithiasis duodenal perforation s/p lap kareen c ioc and open haily patch upper arm DVT, on Lovenox urinary retention, perez s/p cholecystectomy and open haily patch with small leak on Gastrografin study continue NPO and AMARI drains will repeat study on Moday swing bed eval tpn continue abx Supervisory-Addendum Brief Verification & Attestation Participated in pt care: history, MDM, physical Personally performed: exam, history, MDM, supervision of care Care discussed with: Medical Student Procedures: n/a Results interpretation: Verified all documentation Verification and Attestation of Medical Student E/M Service A medical student performed and documented this service in my presence. I reviewed and verified all information documented by the medical student and made modifications to such information, when appropriate. I personally performed the physical exam and medical decision making. Kathleen Zheng, Sep 27, 2019,21:23 BETTY ZAVALETA,MED STUDENT Sep 27, 2019 07:45 KATHLEEN GUTIERREZ DO Sep 27, 2019 21:23 POS
[2019-09-27 08:00] VITALS: BP 177/88
[2019-09-27] MEDS: SENNA W/DOCUSATE (SENOKOT S) TABLET PO SCH (08:12)
[2019-09-27] MEDS: PANTOPRAZOLE 40 MG (PROTONIX) VIAL IV SCH ×2 (08:12→20:24)
--- NOTE | 2019-09-27 09:33 | Progress Note ---
Subjective Date Seen by a Provider: Sep 27, 2019 Time Seen by a Provider: 09:20 Subjective/Events-last exam PT REPORTS THAT HE IS FEELING MUCH BETTER TODAY - HE DENIES CHEST PAIN OR SHORTNESS OF BREATH. HE DOES REPORT ABDOMINAL DISCOMFORT WITH QUITE A BIT OF FATIGUE. HE DOES REPORT THAT HE HAS SOME MUCOUS-LIKE STOOLS. Review of Systems General: Fatigue, Malaise Pulmonary: No Dyspnea, No Cough Cardiovascular: No: Chest Pain, Palpitations Gastrointestinal: Abdominal Pain; No: Nausea Genitourinary: No Dysuria Neurological: Weakness; No: Confusion Objective Exam Last Set of Vital Signs Vital Signs Date Time Temp Pulse Resp B/P (MAP) Pulse Ox O2 Delivery O2 Flow Rate FiO2 09/27/19 06:59 88 09/27/19 04:00 36.9 20 183/73 (109) 96 Room Air 09/23/19 08:00 3.00 Capillary Refill : Less Than 3 SecondsLess Than 3 Seconds I&O Intake and Output 09/27/19 00:00 Intake Total 2120 ml Output Total 4355 ml Balance -2235 ml IV Total 2120 ml Output Urine Total 3550 ml Drainage Total 755 ml Other 50 ml # Bowel Movements 5 General: Alert, Oriented X3, Cooperative, No Acute Distress HEENT: Atraumatic, PERRLA Neck: Supple Lungs: Clear to Auscultation, Other (DECREASED IN BASES) Heart: Regular Rate Abdomen: Normal Bowel Sounds, Other (TTP OVER ENTIRE ABDOMEN) Extremities: No Clubbing, No Cyanosis Skin: No Rashes Neuro: Cranial Nerves 3-12 NL Psych/Mental Status: Mental Status NL, Mood NL Results Lab Laboratory Tests 09/26/19 11:39: Glucometer 173H 09/26/19 18:21: Glucometer 163H 09/27/19 00:19: Glucometer 185H 09/27/19 04:30: White Blood Count 13.2H, Red Blood Count 3.80L, Hemoglobin 11.8L, Hematocrit 35L , Mean Corpuscular Volume 93, Mean Corpuscular Hemoglobin 31, Mean Corpuscular Hemoglobin Concent 34, Red Cell Distribution Width 12.5, Platelet Count 222, Mean Platelet Volume 9.2, Neutrophils (%) (Auto) 82H, Lymphocytes (%) (Auto) 6L, Monocytes (%) (Auto) 9, Eosinophils (%) (Auto) 3, Basophils (%) (Auto) 0, Neutrophils # (Auto) 10.8H, Lymphocytes # (Auto) 0.7L, Monocytes # (Auto) 1.2H, Eosinophils # (Auto) 0.4H, Basophils # (Auto) 0.0, Prothrombin Time 17.5H, INR Comment 1.4, Sodium Level 145, Potassium Level 3.6, Chloride Level 112H, Carbon Dioxide Level 23, Anion Gap 10, Blood Urea Nitrogen 24H, Creatinine 0.67, Estimat Glomerular Filtration Rate > 60, BUN/Creatinine Ratio 36, Glucose Level 143H, Calcium Level 8.0L, Corrected Calcium 9.2, Phosphorus Level 3.3, Magnesium Level 2.2, Total Bilirubin 0.6, Aspartate Amino Transf (AST/SGOT) 24, Alanine Aminotransferase (ALT/SGPT) 19, Alkaline Phosphatase 88, Total Protein 5.2L, Albumin 2.5L, Triglycerides Level 81, Smear Scan N Microbiology 09/24/19 Blood Culture - Preliminary, Resulted No growth 09/20/19 MRSA Screen - Final, Complete MRSA not isolated 09/19/19 Urine Culture - Final, Complete NO GROWTH 09/25/19 Gram Stain - Final, Resulted 09/25/19 Body Fluid Culture - Preliminary, Resulted YEAST Assessment/Plan Assessment/Plan Assess & Plan/Chief Complaint EPIGASTRIC ABDOMINAL PAIN ACUTE CHOLECYSTITIS DUODENAL ULCER HYPERTENSION DIABETES MELLITUS ASTHMA LEUKOCYTOSIS URINARY RETENTION RIGHT ARM SWELLING DVT RIGHT UPPER ARM EPIGASTRIC ABDOMINAL PAIN DUE TO ACUTE CHOLECYSTITIS AND DUODENAL ULCER - ADMISSION PER DR. ZHENG, STATUS POST CHOLECYSTECTOMY WITH DUODENAL PATCH (DUODENAL ULCER FOUND DURING SURGERY) - PT ON PROTONIX IV - PT NPO WITH NG TUBE IN PLACE - FLUIDS -CLINIMIX WITH ELECTROLYTES FOR PT TO HAVE SOME GLUCOSE AND PROTEINS IV UNTIL HE CAN TAKE ORAL FOOD/FLUIDS. - GASTROGRAFIN STUDY POSITIVE FOR LEAKAGE AND THE PATIENT IS TO BE PLACED ON TPN HYPERTENSION - HOLD ORAL MEDICATIONS AT THIS TIME. - START PRN IV METOPROLOL IF HIS SBP IS AT OR ABOVE 170. - IV HYDRALAZINE HAS BEEN INITIATED WELL DIABETES MELLITUS - HOLDING METFORMIN, CONSIDER RESTARTING ONCE ABLE TO TAKE ORAL MEDICATIONS - CONTINUE WITH SLIDING SCALE INSULIN PER PROTOCOL ASTHMA - MONITOR SYMPTOMS. LEUKOCYTOSIS - IMPROVED - CONTINUE WITH CURRENT MANAGEMENT. DVT RIGHT UPPER EXTREMITY - - PT ON LOVENOX DVT TREATMENT DOSE - STARTED TODAY AFTER STAT REPORT WAS CALLED TO BE MY NURSING STAFF. Clinical Quality Measures DVT/VTE Risk/Contraindication: Risk Factor Score Per Nursin RFS Level Per Nursing on Admit: 2=Moderate ARIA RAYMUNDO MD Sep 27, 2019 09:33 POS
[2019-09-27] MEDS: hydrALAZINE (APESOLINE) 20 MG/ML VIAL IV SCH ×3 (09:46→22:17)
--- NOTE | 2019-09-27 10:42 | NUR ---
TPN: PT. NPO, WITH CLINIMIX AT 125ML/HR PROVIDING 1020 KCAL AND 127 GM PROTEIN. CALCULATED METABOLIC NEEDS, [phone] KCAL WITH 75-95 GM PROTEIN. WILL DC CLINIMIX AND START 3-IN-1 TPN AT 77 ML/HR PROVIDING 1580 KCAL WITH 100 MG PROTEIN WITH LIPIDS. WILL START O.45% NS AT 50 ML/HR. PENDING LABS MAY ADVANCE TPN TO [phone] KCAL.
--- NOTE | 2019-09-27 10:55 | Pulmonary Progress Note ---
ALINA WOO MED STUDENT 09/27/19 1055: Subjective Date Seen by a Provider: Sep 27, 2019 Time Seen by a Provider: 10:50 Subjective/Events-last exam No acute events overnight. Patient states that his abdominal pain is improving. He has been using his incentive spirometer and denies cough and shortness of breath. He noted that the swelling in his left hand has improved significantly as he can now see his knuckles and has better range of motion of his fingers. He is still experiencing pain in his left forearm around that area of erythema. Sepsis Event Evaluation Height, Weight, BMI Height: '" Weight: lbs. oz. kg; 27.56 BMI Method: Exam Exam Vital Signs Date Time Temp Pulse Resp B/P (MAP) Pulse Ox O2 Delivery O2 Flow Rate FiO2 09/27/19 08:00 36.7 88 20 177/88 (117) 94 Room Air 09/27/19 06:59 88 09/27/19 04:00 36.9 88 20 183/73 (109) 96 Room Air 09/27/19 01:00 75 09/27/19 00:15 36.9 85 28 184/72 (109) 94 Room Air 09/26/19 21:40 Room Air 09/26/19 20:00 36.9 90 20 182/67 (105) 94 Room Air 09/26/19 16:00 37.0 91 18 172/81 (111) 94 Room Air 09/26/19 13:00 85 09/26/19 12:00 35.6 89 18 138/81 (100) 94 Room Air I & O 09/27/19 07:00 Output Total 4735 ml Balance -4735 ml Height & Weight Height: '" Weight: lbs. oz. kg; 27.56 BMI Method: General Appearance: No Apparent Distress HEENT: PERRL/EOMI; No Moist Mucous Membranes, No Scleral Icterus (L), No Scleral Icterus (R); Other (NG tube to suction in place) Neck: Normal Inspection Respiratory: Chest Non Tender, Lungs Clear, No Accessory Muscle Use, No Respiratory Distress Cardiovascular: Regular Rate, Rhythm, No Edema; No Tachycardia Capillary Refill: Less Than 3 Seconds Peripheral Pulses: 2+ Dorsalis Pedis (R), 2+ Left Dors-Pedis (L), 2+ Radial Pulses (R), 2+ Radial Pulses (L) Gastrointestinal: soft, tenderness, other ([address], one containing serosanguinous fluid and the other billious.) Extremity: Non Tender, No Calf Tenderness, No Pedal Edema, Other (Tender, erythematous region of induration on volar aspect of right forearm ) Neurologic/Psychiatric: Alert, Oriented x3, Normal Mood/Affect Skin: Warm/Dry, Erythema (erythema and swelling of R forearm) Lymphatic: No Adenopathy Results Lab Laboratory Tests 09/26/19 04:35 09/27/19 04:30 Radiology 09/26/19 small bowel followthrough IMPRESSION: Focal extravasation of contrast into the gallbladder fossa from the region of the duodenal bulb, suspect for perforated viscus. Findings were discussed directly with Dr. Juarez 09/27/19 Chest X ray 1. The overall appearance of the chest has not changed significantly since the prior exam. No new abnormality has developed. Assessment/Plan Assessment/Plan Cholecystitis s/p open Cholecystectomy 09/20/19 - incentive spirometry -Surgery following -Pt is on RA Right arm cellulitis suspecious for DVT/thrombophlebitis -Doppler showed DVT x2, right brachial and right cephalic vein -Lovenox 60mg started 09/26/19 Bilateral small pleural effusions -Decrease IVF -Received 60mg Lasix 09/25/19 - 09/26/19 I&Os In: 2120 Out: 4355 Total: -2235 -BNP 72.5 on 09/24/19 Leukocytosis -Consistently improving since 09/25/19 -Continue Zosyn , diflucan, flagyl auto stopped -Surgery is following -09/25/19 VALENTINA drain gram stain unremarkable, culture growing yeast -09/24/19 Blood cultures no growth to date. Atelectasis with hypoxemia -Encourage incentive spirometry -Consult PT/OT Duodenal perforation s/p repair - Zosyn, Diflucan -Clinimax 125mL/hr -Protonix Anemia -Monitor LIODA LINCOLN DO 11/01/19 0650: Supervisory-Addendum Brief Verification & Attestation Participated in pt care: history Personally performed: exam, history Care discussed with: Medical Student Procedures: n/a Verification and Attestation of Medical Student E/M Service A medical student performed and documented this service in my presence. I reviewed and verified all information documented by the medical student and made modifications to such information, when appropriate. I personally performed the physical exam and medical decision making. Loida Lincoln, Nov 01, 2019,06:50 ALINA WOO MED STUDENT Sep 27, 2019 10:55 LOIDA LEWIS DO Nov 01, 2019 06:50 POS
[2019-09-27 12:00] VITALS: BP 145/79
[2019-09-27] MEDS: FLUCONAZOLE 200 MG/100 ML 50 ML, EMPTY IV BAG (PVC) 1 EA IV SCH ×2 (15:04)
[2019-09-27 16:00] VITALS: BP 167/81
[2019-09-27] MEDS: 1/2 NS IV SOLUTION 1,000 ML IV SCH (16:57)
[2019-09-27] MEDS ORDERED: [UNRECOGNIZED DRUG - OTHER] IV SCH ×21 (17:00)
[2019-09-27] MEDS ORDERED: SODIUM CHLORIDE IV SCH ×21 (17:00)
[2019-09-27] MEDS ORDERED: SODIUM ACETATE IV SCH ×21 (17:00)
[2019-09-27 20:00] VITALS: BP 177/80
[2019-09-28] VITALS: BP 152/73
[2019-09-28] MEDS: PIPERACILLIN/TAZO 4.5 GM/NS 100 ML IV SCH ×6 (00:18→16:38)
[2019-09-28] MEDS: ENOXAPARIN 60 MG/0.6 ML (LOVENOX) SYR SC SCH ×2 (00:19→13:52)
[2019-09-28] MEDS: inSUlin ASPART (NovoLOG) 1 UNIT/0.01 ML (CHARGE PER UNIT) SQ SCH ×5 (00:19→17:48)
[2019-09-28 04:00] VITALS: BP 166/77
[2019-09-28] MEDS: hydrALAZINE (APESOLINE) 20 MG/ML VIAL IV SCH ×2 (05:10→14:34)
[2019-09-28 05:26] LABS: BASOPHILS % (AUTO) 0 % (0-10); EOSINOPHILS # (AUTO) 0.4 10^3/uL (0.0-0.3); EOSINOPHILS % (AUTO) 4 % (0-10); HEMATOCRIT 35 % (40-54); HEMOGLOBIN 11.8 G/DL (13.3-17.7); LYMPHOCYTES # (AUTO) 0.7 X 10^3 (1.0-4.0); LYMPHOCYTES % (AUTO) 7 % (12-44); MEAN CORPUSCULAR HEMOGLOBIN 31 PG (25-34); MEAN CORPUSCULAR HGB CONC 34 G/DL (32-36); MEAN CORPUSCULAR VOLUME 93 FL (80-99); MONOCYTES # (AUTO) 0.9 X 10^3 (0.0-1.0); MONOCYTES % (AUTO) 9 % (0-12); NEUTROPHILS # (AUTO) 8.4 X 10^3 (1.8-7.8); NEUTROPHILS % (AUTO) 80 % (42-75); PLATELET COUNT 285 10^3/uL (130-400); RED CELL DISTRIBUTION WIDTH 12.9 % (10.0-14.5); WHITE BLOOD COUNT 10.5 10^3/uL (4.3-11.0)
[2019-09-28 05:45] LABS: BUN/CREATININE RATIO 34; CALCIUM 7.8 MG/DL (8.5-10.1); CARBON DIOXIDE 23 MMOL/L (21-32); CHLORIDE 115 MMOL/L (98-107); CREATININE SERUM 0.67 MG/DL (0.60-1.30); GFR ESTIMATED > 60; GLUCOSE 146 MG/DL (70-105); MAGNESIUM 2.4 MG/DL (1.6-2.4); POTASSIUM 3.5 MMOL/L (3.6-5.0); SODIUM 146 MMOL/L (135-145)
--- NOTE | 2019-09-28 07:20 | Progress Note - Surgery ---
BETTY ZAVALETA,MED STUDENT 09/28/19 0720: Subjective Date Seen by a Provider: Sep 28, 2019 Time Seen by a Provider: 06:50 Subjective/Events-last exam Patient seen and examined. He has no new complaints this morning and reports his abdominal incisions are less painful today, and only with movement. He also states it is becoming easier to sit at the side of the bed and stand with assistance, and he is able to ambulate to the bathroom with assistance. Denies having a BM overnight or this am, perez remains in place. NG tube is still in place. Drain 1 contains bile-tinged fluid, drain 2 contains small amount of serosanguineous fluid. R arm swelling is improved today and he is able to wear his watch again, however localized area of erythema and induration remains. Objective Exam Vital Signs Date Time Temp Pulse Resp B/P (MAP) Pulse Ox O2 Delivery O2 Flow Rate FiO2 09/28/19 06:57 85 09/28/19 04:00 37.0 83 18 166/77 (106) 94 Room Air 09/28/19 01:00 74 09/28/19 00:00 36.6 86 20 152/73 (99) 96 Room Air 09/27/19 20:00 36.6 85 18 177/80 (112) 96 Room Air 09/27/19 20:00 Room Air 09/27/19 19:00 82 09/27/19 16:00 36.6 80 18 167/81 (109) 96 Room Air 09/27/19 12:00 37.0 87 20 145/79 (101) 94 Room Air 09/27/19 08:00 36.7 88 20 177/88 (117) 94 Room Air 09/27/19 08:00 Room Air I & O 09/28/19 07:00 Intake Total 0 ml Output Total 2685 ml Balance -2685 ml Capillary Refill : Less Than 3 SecondsLess Than 3 Seconds General Appearance: No Apparent Distress, WD/WN; No Anxious HEENT: PERRL/EOMI; No Moist Mucous Membranes, No Scleral Icterus (L), No Scleral Icterus (R) Neck: Normal Inspection Respiratory: Chest Non Tender, No Accessory Muscle Use, No Respiratory Distress Cardiovascular: Regular Rate, Rhythm, No Murmur Peripheral Pulses: 2+ Dorsalis Pedis (R), 2+ Left Dors-Pedis (L), 2+ Radial Pulses (R), 2+ Radial Pulses (L) Gastrointestinal: soft, tenderness (incisional, c/d/i), other (drain with serosanguineous fluid output, other with tinge of bile in it) Extremity: Non Tender, No Calf Tenderness, Other (right arm with slight erythema and tenderness) Neurologic/Psychiatric: Alert, Oriented x3, No Motor/Sensory Deficits Skin: Warm/Dry, Erythema (erythema and swelling of R forearm) Results Lab Laboratory Tests 09/27/19 11:46: Glucometer 193H 09/27/19 18:04: Glucometer 166H 09/27/19 23:49: Glucometer 225H 09/28/19 05:19: Glucometer 130H 09/28/19 05:21: White Blood Count 10.5, Red Blood Count 3.77L, Hemoglobin 11.8L, Hematocrit 35L, Mean Corpuscular Volume 93, Mean Corpuscular Hemoglobin 31, Mean Corpuscular Hemoglobin Concent 34, Red Cell Distribution Width 12.9, Platelet Count 285, Mean Platelet Volume 9.0, Neutrophils (%) (Auto) 80H, Lymphocytes (%) (Auto) 7L, Monocytes (%) (Auto) 9, Eosinophils (%) (Auto) 4, Basophils (%) (Auto) 0, Neutrophils # (Auto) 8.4H, Lymphocytes # (Auto) 0.7L, Monocytes # (Auto) 0.9, Eosinophils # (Auto) 0.4H, Basophils # (Auto) 0.0, Sodium Level 146H, Potassium Level 3.5L, Chloride Level 115H, Carbon Dioxide Level 23, Anion Gap 8, Blood Urea Nitrogen 23H, Creatinine 0.67, Estimat Glomerular Filtration Rate > 60, BUN/Creatinine Ratio 34, Glucose Level 146H, Calcium Level 7.8L, Phosphorus Level 3.0, Magnesium Level 2.4 Microbiology 09/24/19 Blood Culture - Preliminary, Resulted No growth 09/20/19 MRSA Screen - Final, Complete MRSA not isolated 09/19/19 Urine Culture - Final, Complete NO GROWTH 09/25/19 Gram Stain - Final, Resulted 09/25/19 Body Fluid Culture - Preliminary, Resulted YEAST Assessment/Plan Assessment/Plan Assessment/Plan cholecystitis cholelithiasis duodenal perforation s/p lap kareen c ioc and open haily patch upper arm DVT urinary retention s/p cholecystectomy and open haily patch will repeat gastrograffin study Wednesday, patient expressed understanding perez in place continue TPN continue to ambulate as able continue IS use continue abx Clinical Quality Measures DVT/VTE Risk/Contraindication: Risk Factor Score Per Nursin RFS Level Per Nursing on Admit: 2=Moderate KATHLEEN ZHENG DO 10/24/191918: Subjective Subjective/Events-last exam No new complaints. Pain controlled. NPO, NG tube in place. TPN for nutrition. No family at bedside. Objective Exam General Appearance: No Apparent Distress HEENT: PERRL/EOMI Neck: Normal Inspection Respiratory: Chest Non Tender, No Accessory Muscle Use, No Respiratory Distress Gastrointestinal: soft, tenderness (incisional, c/d/i), other (drain with serosanguineous fluid output, other with tinge of bile in it) Neurologic/Psychiatric: Alert, Oriented x3, No Motor/Sensory Deficits Assessment/Plan Assessment/Plan Assessment/Plan cholecystitis cholelithiasis duodenal perforation s/p lap kareen c ioc and open haily patch upper arm DVT urinary retention s/p cholecystectomy and open haily patch patient to continue tpn for nutrition ng tube to liws plan repeat gastrografin atley wednesday plan converting to Swing bed status continue medical management. Supervisory-Addendum Brief Verification & Attestation Participated in pt care: history, MDM, physical Personally performed: exam, history, MDM, supervision of care Care discussed with: Medical Student Procedures: n/a Results interpretation: Verified all documentation Verification and Attestation of Medical Student E/M Service A medical student performed and documented this service in my presence. I reviewed and verified all information documented by the medical student and made modifications to such information, when appropriate. I personally performed the physical exam and medical decision making. Kathleen Zheng, Oct 24, 2019,19:19 BETTY ZAVALETA,MED STUDENT Sep 28, 2019 07:20 KATHLEEN GUTIERREZ DO Oct 24, 2019 19:19 POS
--- NOTE | 2019-09-28 07:39 | Progress Note - Hospitalist ---
REHANA RAMIREZ [facility] 09/28/19 0739: Subjective HPI/CC On Admission Date Seen by Provider: Sep 28, 2019 Time Seen by Provider: 07:32 abdominal pain Subjective/Events-last exam Vitals are stable and normal. Patient is pleasant and states that he is feeling better than yesterday. Reports to have slept throughout the night. States that he also has been using the incentive spirometer more frequently. States that his abdomen is feeling better and has less tenderness. He is able to have BM and reports no issues with the perez. No other issues were reported. Review of Systems General: No Chills, No Night Sweats, No Fatigue, No Malaise, No Appetite, No Other HEENT: No Head Aches, No Visual Changes, No Eye Pain, No Ear Pain, No Dysphasia, No Sinus Congestion, No Post Nasal Drip, No Sore Throat, No Other Pulmonary: No Dyspnea, No Cough, No Pleuritic Chest Pain, No Other Cardiovascular: No: Chest Pain, Palpitations, Orthopnea, Paroxysmal Noc. Dyspnea, Edema, Lt Headedness, Other Gastrointestinal: No: Nausea, Vomiting, Abdominal Pain, Diarrhea, Constipation, Melena, Hematochezia, Other Genitourinary: No Dysuria, No Frequency, No Incontinence, No Hematuria, No Retention, No Other Musculoskeletal: No: other, neck pain, shoulder pain, arm pain, back pain, hand pain, leg pain, foot pain Focused Exam Respiratory: Chest Non Tender, Lungs Clear, Normal Breath Sounds, No Accessory Muscle Use, No Respiratory Distress Cardiovascular: Regular Rate, Rhythm, No Edema, No Gallop, No JVD, No Murmur, Normal Peripheral Pulses Peripheral Pulses: 2+ Dorsalis Pedis (R), 2+ Left Dors-Pedis (L), 2+ Radial Pulses (R), 2+ Radial Pulses (L) Skin: normal color, warm/dry Objective Exam Vital Signs Vital Signs Date Time Temp Pulse Resp B/P (MAP) Pulse Ox O2 Delivery O2 Flow Rate FiO2 09/28/19 06:57 85 09/28/19 04:00 37.0 18 166/77 (106) 94 Room Air 09/23/19 08:00 3.00 Capillary Refill : Less Than 3 SecondsLess Than 3 Seconds General Appearance: No Apparent Distress, WD/WN Respiratory: Chest Non Tender, Lungs Clear, Normal Breath Sounds, No Accessory Muscle Use, No Respiratory Distress Cardiovascular: Regular Rate, Rhythm, No Edema, No Gallop, No JVD, No Murmur, Normal Peripheral Pulses Gastrointestinal: Normal Bowel Sounds, No Organomegaly, No Pulsatile Mass, Non Tender, Soft Extremity: Normal Capillary Refill, Normal Inspection, Normal Range of Motion, Non Tender, No Calf Tenderness, No Pedal Edema Neurologic/Psychiatric: Alert, Oriented x3, No Motor/Sensory Deficits, Normal Mood/Affect Skin: Normal Color, Warm/Dry Lymphatic: No Adenopathy Results/Procedures Lab Laboratory Tests 09/28/19 05:21 Patient resulted labs reviewed. Assessment/Plan Assessment and Plan Assess & Plan/Chief Complaint Assessment: 1. Acute Cholecystitis + Duodenal Ulcer - NPO until gastrografin study - Monitor drainage in VALENTINA drains. 2. Bladder Ileus: - Maintain perez cath 3. DVT UE of the Right: - D/C all IV's on that side and monitor for worsening - Monitor the peripheral site of infultrated IV site (R) 4. History of HTN: Manage BP with Hydralazine 5. History of T2DM: - Monitor daily Glucose - Treat with insulin as needed 6. History of HLP: - Monitor LFT's - Continue home regiment. Clinical Quality Measures DVT/VTE Risk/Contraindication: Risk Factor Score Per Nursin RFS Level Per Nursing on Admit: 2=Moderate ARIA RAYMUNDO MD 10/24/19 1807: Subjective HPI/CC On Admission Date Seen by Provider: Sep 28, 2019 Time Seen by Provider: 08:30 ABDOMINAL PAIN, FATIGUE Subjective/Events-last exam PT REPORTS THAT HE IS STILL HAVING ABDOMINAL PAIN, BUT IT HAS IMPROVED, HE REPORTS THAT HE HAS LESS SWELLING IN HIS RIGHT ARM. Review of Systems General: Fatigue, Malaise Gastrointestinal: Abdominal Pain Genitourinary: Retention Objective Exam General Appearance: No Apparent Distress, WD/WN HEENT: PERRL/EOMI Neck: Supple Respiratory: Chest Non Tender, Lungs Clear, Normal Breath Sounds, No Accessory Muscle Use Cardiovascular: Regular Rate, Rhythm Gastrointestinal: Non Tender, Soft Extremity: Normal Capillary Refill, No Calf Tenderness, No Pedal Edema Neurologic/Psychiatric: Alert, Oriented x3, No Motor/Sensory Deficits, Normal Mood/Affect Skin: Normal Color, Warm/Dry Lymphatic: No Adenopathy Assessment/Plan Assessment and Plan Assess & Plan/Chief Complaint SEE MY DOCUMENTATION UNDER ADDENDUM Supervisory-Addendum Brief Verification & Attestation Participated in pt care: history, MDM, physical Personally performed: exam, history, MDM Care discussed with: Medical Student Procedures: n/a Results interpretation: Verified all documentation EPIGASTRIC ABDOMINAL PAIN ACUTE CHOLECYSTITIS DUODENAL ULCER HYPERTENSION DIABETES MELLITUS ASTHMA LEUKOCYTOSIS URINARY RETENTION RIGHT ARM SWELLING DVT RIGHT UPPER ARM EPIGASTRIC ABDOMINAL PAIN DUE TO ACUTE CHOLECYSTITIS AND DUODENAL ULCER - ADMISSION PER DR. ZHENG, STATUS POST CHOLECYSTECTOMY WITH DUODENAL PATCH (DUODENAL ULCER FOUND DURING SURGERY) - PT ON PROTONIX IV - PT NPO WITH NG TUBE IN PLACE - FLUIDS -CLINIMIX WITH ELECTROLYTES FOR PT TO HAVE SOME GLUCOSE AND PROTEINS IV UNTIL HE CAN TAKE ORAL FOOD/FLUIDS. - GASTROGRAFIN STUDY POSITIVE FOR LEAKAGE AND THE PATIENT IS TO BE PLACED ON TPN HYPERTENSION - HOLD ORAL MEDICATIONS AT THIS TIME. - START PRN IV METOPROLOL IF HIS SBP IS AT OR ABOVE 170. - IV HYDRALAZINE HAS BEEN INITIATED WELL DIABETES MELLITUS - HOLDING METFORMIN, CONSIDER RESTARTING ONCE ABLE TO TAKE ORAL MEDICATIONS - CONTINUE WITH SLIDING SCALE INSULIN PER PROTOCOL ASTHMA - MONITOR SYMPTOMS. LEUKOCYTOSIS - IMPROVED - CONTINUE WITH CURRENT MANAGEMENT. DVT RIGHT UPPER EXTREMITY - - PT ON LOVENOX DVT TREATMENT DOSE - REHANA RAMIREZ MED STUD Sep 28, 2019 07:39 ARIA TRUJILLO MD Oct 24, 2019 18:07 POS
[2019-09-28 08:00] VITALS: BP 164/89
--- NOTE | 2019-09-28 08:02 | Diagnostic Imaging Report ---
INDICATION: Gastrointestinal bleed. Comparison made with prior examination 09/27/2019. FINDINGS: Heart size is normal. There is some right basilar atelectasis and/or pneumonitis. There is no pleural effusion or pneumothorax. Mediastinum is unremarkable. IMPRESSION: Right basilar atelectasis and/or pneumonitis. Dictated by: Dictated on workstation # [id number]
[2019-09-28] MEDS: PANTOPRAZOLE 40 MG (PROTONIX) VIAL IV SCH (08:19)
[2019-09-28] MEDS: SENNA W/DOCUSATE (SENOKOT S) TABLET PO SCH (08:31)
--- NOTE | 2019-09-28 09:01 | Pulmonary Progress Note ---
ALINA WOO MED STUDENT 09/28/19 0901: Subjective Date Seen by a Provider: Sep 28, 2019 Time Seen by a Provider: 08:56 Subjective/Events-last exam No acute events overnight. Patient has been using his incentive spirometer and denies cough, shortness of breath, fever, and chills. His abdominal and left forearm pain are improving. Sepsis Event Evaluation Height, Weight, BMI Height: '" Weight: lbs. oz. kg; 27.56 BMI Method: Exam Exam Vital Signs Date Time Temp Pulse Resp B/P (MAP) Pulse Ox O2 Delivery O2 Flow Rate FiO2 09/28/19 08:02 Room Air 09/28/19 06:57 85 09/28/19 04:00 37.0 83 18 166/77 (106) 94 Room Air 09/28/19 01:00 74 09/28/19 00:00 36.6 86 20 152/73 (99) 96 Room Air 09/27/19 20:00 36.6 85 18 177/80 (112) 96 Room Air 09/27/19 20:00 Room Air 09/27/19 19:00 82 09/27/19 16:00 36.6 80 18 167/81 (109) 96 Room Air 09/27/19 12:00 37.0 87 20 145/79 (101) 94 Room Air I & O 09/28/19 07:00 Intake Total 0 ml Output Total 2685 ml Balance -2685 ml Height & Weight Height: '" Weight: lbs. oz. kg; 27.56 BMI Method: General Appearance: No Apparent Distress, WD/WN HEENT: PERRL/EOMI; No Moist Mucous Membranes, No Scleral Icterus (L), No Scleral Icterus (R); Other (NG tube in place to suction) Neck: Normal Inspection Respiratory: Chest Non Tender, Lungs Clear, Normal Breath Sounds, No Accessory Muscle Use, No Respiratory Distress Cardiovascular: Regular Rate, Rhythm, No Edema, No Gallop, No JVD, No Murmur, Normal Peripheral Pulses Capillary Refill: Less Than 3 Seconds Peripheral Pulses: 2+ Dorsalis Pedis (R), 2+ Left Dors-Pedis (L), 2+ Radial Pulses (R), 2+ Radial Pulses (L) Gastrointestinal: soft, tenderness (incisional, c/d/i), other (2 [place]INA drains, one with 25 mL bilious fluid and other 75mL dark bilous fluid) Extremity: Normal Capillary Refill, Normal Inspection, Normal Range of Motion, Non Tender, No Calf Tenderness, No Pedal Edema Neurologic/Psychiatric: Alert, Oriented x3, No Motor/Sensory Deficits, Normal Mood/Affect Skin: Normal Color, Warm/Dry Lymphatic: No Adenopathy Results Lab Laboratory Tests 09/27/19 04:30 09/28/19 05:21 Radiology 09/28/19 Chest Xray IMPRESSION: Right basilar atelectasis and/or pneumonitis Assessment/Plan Assessment/Plan Cholecystitis s/p open Cholecystectomy 09/20/19 - incentive spirometry -Surgery following -Pt is on RA Right arm cellulitis suspecious for DVT/thrombophlebitis -Doppler showed DVT x2, right brachial and right cephalic vein -Lovenox 60mg started 09/26/19 -improving erythema and swelling Bilateral small pleural effusions -Decrease IVF -Received 60mg Lasix 09/25/19 -BNP 72.5 on 09/24/19 Leukocytosis -Consistently improving since 09/25/19 -Continue Zosyn , diflucan, flagyl auto stopped -Surgery is following -09/25/19 VAL[place]INA drain gram stain unremarkable, culture growing yeast -09/24/19 Blood cultures no growth to date. Atelectasis with hypoxemia -Encourage incentive spirometry -Consult PT/OT Duodenal perforation s/p repair - Zosyn, Diflucan -Clinimax 125mL/hr -Protonix Anemia -Monitor LOIDA LINCOLN DO 11/01/19 0651: Supervisory-Addendum Brief Verification & Attestation Participated in pt care: history Personally performed: exam, history Care discussed with: Medical Student Procedures: n/a Verification and Attestation of Medical Student E/M Service A medical student performed and documented this service in my presence. I reviewed and verified all information documented by the medical student and made modifications to such information, when appropriate. I personally performed the physical exam and medical decision making. Loida Lincoln, Nov 01, 2019,06:51 ALINA WOO MED STUDENT Sep 28, 2019 09:01 LOIDA LEWIS DO Nov 01, 2019 06:51 POS
[2019-09-28] MEDS: POTASSIUM CL 10MEQ/50ML IVPB 50 ML IV SCH ×4 (10:53→13:13)
[2019-09-28 12:00] VITALS: BP 157/83
[2019-09-28] MEDS: FLUCONAZOLE 200 MG/100 ML 50 ML, EMPTY IV BAG (PVC) 1 EA IV SCH ×2 (14:34)
--- NOTE | 2019-09-28 15:26 | NUR ---
Swing Bed Note: Qualifies for swing bed for continued need of multiple IV medications/IV nutrition, IV abx (IV Nutrition, Duodenal Perforation with repair). Recommend consideration for Physical et Occupational therapies to begin when/if patient becomes appropriate. Anticipate admission to swing bed tomorrow 09/29/19. Thank you for this referral!
[2019-09-28 16:32] VITALS: BP 150/75
[2019-09-28] MEDS: 1/2 NS IV SOLUTION 1,000 ML IV SCH (16:55)
[2019-09-28] MEDS ORDERED: SODIUM ACETATE IV SCH ×11 (17:00)
[2019-09-28] MEDS ORDERED: [UNRECOGNIZED DRUG - OTHER] IV SCH ×11 (17:00)
[2019-09-28] MEDS ORDERED: 1/2 NS IV SOLUTION 1,000 ML IV SCH (17:00)
[2019-09-28] MEDS ORDERED: POTASSIUM CHLORIDE IV SCH ×11 (17:00)
[2019-09-28] MEDS ORDERED: SODIUM PHOSPHATE IV SCH ×11 (17:00)
[2019-09-28] MEDS: LORazepam INJ 2 MG/ML (ATIVAN) VIAL IV PRN (17:26)
--- NOTE | 2019-09-29 12:59 | Physician Query Clarification ---
PQ-Conflicting Diagnosis Admission/Discharge Admission Date: Sep 19, 2019 at 21:40 Discharge Date: Sep 28, 2019 at 18:08 The medical record reflects the following clinical scenario: History/Risk Factors: acute cholecystitis w/cholelithiasis, perforated duodenal ulcer, DM, HTN, Clinical Findings: CXR small effusion with atelectasis, no respiratory distress Treatment: supplemental oxygen as needed, IS Question: Do you agree with the impression of the acute hypoxic respiratory failure per Dr. Murguia 09/23 PN. Please document a response in Progress Note or Discharge Summary. 1. Yes 2. No 3. Other, with explanation of clinical findings 4. Clinically undetermined, no explanation for clinical findings. That is not my diagnosis. Please see my notes. PHYSICIAN RESPONSE Do you agree w/Consulting Dx?: Other,explanation/clincal findings Explanation of clincal finding That is not my diagnosis. Please see my notes. Please remember a lack of response to the above will prompt a phone page by CDI/Coding staff. In responding to this query, please exercise your independent professional judg ment. The purpose of this communication is to more accurately reflect the complexity of your patients condition. The fact that a question is asked does not imply that any particular answer is desired or expected. Thank you for your timely response to this clarification. Requestors name: Olimpia THIS PHYSICIAN QUERY FORM IS A PERMANENT PART OF THE MEDICAL RECORD OLIMPIA GNOZALEZ Sep 29, 2019 12:59 LOIDA LEWIS DO Oct 24, 2019 12:43 POS
--- NOTE | 2019-10-24 06:06 | DISCHARGE SUMMARY ---
DATE OF SERVICE: CONSULTING PHYSICIANS: Dr. Vega and Dr. Lincoln. ADMITTING DIAGNOSES: 1. Epigastric abdominal pain. 2. Symptomatic cholelithiasis. 3. Cholecystitis. 4. Gastroesophageal reflux disease. HOSPITAL COURSE: The patient is an 84-year-old male, presenting to the emergency department, who had epigastric abdominal pain for the last week, fluctuating pain that sometimes moved more into the right upper quadrant. He is having severe 10/10 pain, is worse after food. States that he is better after some of the medications he got in the Emergency Department and was noting some darker stools. The patient did get a GI cocktail, which did help some of his pain, but not the majority of his pain he states. A CT scan demonstrating a large stone and changes consistent with cholecystitis. The patient was placed on antibiotics and was consented for laparoscopic cholecystectomy. The patient underwent laparoscopic cholecystectomy on 09/20/2019 with intraoperative cholangiogram and the patient was found to have a duodenal perforation as well so open repair of duodenal ulcer perforation with Terry patch was performed. The patient postoperatively was kept n.p.o., was started on Protonix drip. The patient during hospital course also noted to have swelling, redness to the right arm in which right upper extremity DVT was found. So the patient was placed on therapeutic Lovenox. The patient continued to improve through hospital stay. He had a Gastrografin small bowel follow through performed on 09/26/2019, which demonstrated still a small leak to be present. Therefore, the patient was continued to be n.p.o. and continued with medical management. The patient did have some urinary retention postoperatively, which a [place] catheter have all resolved, which he was also able to begin urinating as well through hospital course. The patient was transferred to swing bed status on 09/28/2019 for continued to give the area a time to heal and to have a reevaluation with a small bowel follow through changing to Swing Bed Stay. Please see hospital chart for further information. DISCHARGE DIAGNOSES: Cholecystitis, cholelithiasis, duodenal perforation, status post laparoscopic cholecystectomy with intraoperative cholangiogram and open Terry patch, urinary retention, DVT right upper extremity. Again, please see hospital chart for further information. Job ID: [id number] DocumentID: [id number] Dictated Date: 10/23/2019 22:38:02 Cap Maker Date: 10/24/2019 06:05:41 Dictated By: DO ELSY ENNISD
== END 2019-09-28 18:08 | disposition swing bed (61) | DRG 330 ==
LOC: EDUNIT# 20:01 → ER 20:02 → 4TH 21:40 → ICU 09-20 15:15 → 4TH 09-23 11:40
PROVIDERS: ADMIT Surgery; ATTEND Surgery
PROC: 0FT44ZZ Resection of Gallbladder, Percutaneous Endoscopic Approach (ICD-10-PCS; 2019-09-20)
PROC: BF131ZZ Fluoroscopy of Gallbladder and Bile Ducts using Low Osmolar Contrast (ICD-10-PCS; 2019-09-20)
PROC: 0DJ08ZZ Inspection of Upper Intestinal Tract, Via Natural or Artificial Opening Endoscopic (ICD-10-PCS; 2019-09-20)
PROC: 0DU907Z Supplement Duodenum with Autologous Tissue Substitute, Open Approach (ICD-10-PCS; principal; 2019-09-20 10:47)
DX: K26.5 Chronic or unspecified duodenal ulcer with perforation (principal); K80.00 Calculus of gallbladder with acute cholecystitis without obstruction; K92.1 Melena; I10 Essential (primary) hypertension; J45.909 Unspecified asthma, uncomplicated; E11.9 Type 2 diabetes mellitus without complications; K21.9 Gastro-esophageal reflux disease without esophagitis; N40.1 Benign prostatic hyperplasia with lower urinary tract symptoms; J98.11 Atelectasis; J90 Pleural effusion, not elsewhere classified; T80.1XXA Vascular complications following infusion, transfusion and therapeutic injection, initial encounter; I82.621 Acute embolism and thrombosis of deep veins of right upper extremity; I80.8 Phlebitis and thrombophlebitis of other sites; T80.29XA Infection following other infusion, transfusion and therapeutic injection, initial encounter; L03.113 Cellulitis of right upper limb; E83.39 Other disorders of phosphorus metabolism; D64.9 Anemia, unspecified; R33.9 Retention of urine, unspecified; N32.89 Other specified disorders of bladder
CPT/HCPCS: 36415; 36569; 71045; 74018; 74177; 74250; 76937; 80048; 80053; 81000; 82728; 82962; 83540; 83605; 83690; 83735; 83880; 84100; 84134; 84478; 84484; 85007; 85025; 85027; 85610; 87040; 87070; 87081; 87088; 87205; 88304; 93005; 94664; 96361; 96374; 96375

== ENCOUNTER 2019-09-28 18:02 | Inpatient (IN) | payer MEDICARE ==
[~2019-09-28] VITALS: Ht 172.7 cm; Wt 61.2 kg
[~2019-09-28 18:02] MED LIST: DILT240C53 PO; IBUP-30 PO; METF-397 PO; UMEC62.5 INH
[2019-09-28] MEDS ORDERED: fentaNYL INJECTION 100 MCG/2 ML AMP IV PRN (18:15)
[2019-09-28] MEDS ORDERED: diphenhydrAMINE 50 MG/ML INJ (BENADRYL) IV PRN (18:15)
[2019-09-28] MEDS ORDERED: FLUCONAZOLE 200 MG/100 ML 50 ML, EMPTY IV BAG (PVC) 1 EA IV SCH ×2 (18:15)
[2019-09-28] MEDS ORDERED: ONDANSETRON 4 MG/2 ML (SDV) Z0FRAN IV PRN (18:15)
[2019-09-28] MEDS ORDERED: TPN IV SCH (18:15)
[2019-09-28] MEDS ORDERED: NALOXONE 0.4 MG/ML 1 ML (NARCAN) VIAL IV PRN (18:15)
[2019-09-28] MEDS ORDERED: PIPERACILLIN/TAZOBACTAM (BULK) 4.5 GM in NS (IVPB) 100 ML IV SCH (18:15)
[2019-09-28] MEDS ORDERED: ACETAMINOPHEN 650 MG SUPP (TYLENOL) PR PRN (18:15)
[2019-09-28] MEDS ORDERED: fentaNYL INJECTION 1,000 MCG in NS (IVPB) 80 ML IV SCH (18:15)
[2019-09-28] MEDS ORDERED: LORazepam INJ 2 MG/ML (ATIVAN) VIAL IV PRN (18:15)
--- NOTE | 2019-09-28 18:35 | NUR ---
Admission Drug Regimen Review: Date: 09/28/19 Time: 1834 Review Completed, No Issues found
--- NOTE | 2019-09-28 18:53 | NUR ---
VIC ENGLISH admitted to swing bed status to room , with an admitting diagnosis of SWB CHOLECYSTITIS, UPPER GI BLEED, on 09/28/19 from acute inpatient status. VIC ENGLISH and/or family introduced to surroundings, call light, bed controls, phone, TV, temperature control, lights, meal times, smoking policy, visitor policy, side rail policy, bathrooms, and showers. Patient rights given to patient in the handbook.. VIC ENGLISH and/or family member verbalized understanding that [facility] is not responsible for the loss or damage to any personal effects or valuables that are kept in the patients possession during their hospitalization. The following care plans were discussed with VIC ENGLISH: Discharge Plannning,PAIN, FL VOL DEFICIT, AND HIGH RISK INJURY. VIC ENGLISH and/or family verbalizes understanding of the Interdisciplinary Patient Education. Patient and/or family were informed about the Rapid Response Team and its purpose. Call light with in reach and patient demonstrates understanding of how to use. VIC ENGLISH reports no further needs at this time. PLEASEE SEE ACUTE CARE ASSESSMENT
[2019-09-28 20:57] VITALS: BP 117/79
[2019-09-28] MEDS: 1/2 NS IV SOLUTION 1,000 ML IV SCH (21:00)
[2019-09-28] MEDS: PANTOPRAZOLE 40 MG (PROTONIX) VIAL IV SCH (21:25)
[2019-09-28] MEDS: hydrALAZINE (APESOLINE) 20 MG/ML VIAL IV SCH (21:25)
[2019-09-29] VITALS (7 sets, daily range): BP systolic 132–177; BP diastolic 73–92
[2019-09-29] MEDS: PIPERACILLIN/TAZOBACTAM (BULK) 4.5 GM in NS (IVPB) 100 ML IV SCH ×4 (00:39→23:28)
[2019-09-29] MEDS: ENOXAPARIN 60 MG/0.6 ML (LOVENOX) SYR SC SCH ×2 (00:39→12:33)
[2019-09-29] MEDS: inSUlin ASPART (NovoLOG) 1 UNIT/0.01 ML (CHARGE PER UNIT) SQ SCH ×4 (00:52→18:13)
[2019-09-29] MEDS: hydrALAZINE (APESOLINE) 20 MG/ML VIAL IV SCH ×3 (05:32→22:11)
[2019-09-29] MEDS: PANTOPRAZOLE 40 MG (PROTONIX) VIAL IV SCH ×2 (08:28→19:46)
[2019-09-29] MEDS: OCTREOTIDE INJECTION 500 MCG in NS (IVPB) 99 ML IV SCH ×2 (08:32→18:29)
[2019-09-29 08:38] LABS: ALANINE AMINOTRANSFERASE 55 U/L (0-55); ALBUMIN 2.7 GM/DL (3.2-4.5); ALKALINE PHOSPHATASE 150 U/L (40-136); BILIRUBIN,TOTAL 0.7 MG/DL (0.1-1.0); BUN/CREATININE RATIO 29; CALCIUM 8.1 MG/DL (8.5-10.1); CARBON DIOXIDE 17 MMOL/L (21-32); CHLORIDE 116 MMOL/L (98-107); CREATININE SERUM 0.69 MG/DL (0.60-1.30); GFR ESTIMATED > 60; GLUCOSE 232 MG/DL (70-105); MAGNESIUM 2.3 MG/DL (1.6-2.4); PHOSPHORUS 2.4 MG/DL (2.3-4.7); POTASSIUM 4.1 MMOL/L (3.6-5.0); SODIUM 144 MMOL/L (135-145); TOTAL PROTEIN 5.7 GM/DL (6.4-8.2); TRIGLYCERIDES 78 MG/DL (<150)
--- NOTE | 2019-09-29 09:54 | Progress Note ---
Subjective Date Seen by a Provider: Sep 29, 2019 Time Seen by a Provider: 09:00 Subjective/Events-last exam PT IS AN 84 Y/O MALE WHO IS POST-OP CHOLECYSTECTOMY WITH DUODENAL ULCERATION AND PATCH PLACEMENT. VIC HAS HAD A SLOW RECOVERY WITH PERSISTENT LEAKAGE OF BILE. PT REPORTS THAT HE HAS THICK IRRITATING MUCUS IN THE BACK OF HIS THROAT AND HE CANNOT CLEAR THE DRAINAGE. HE REPORTS THAT HE HAS SIGNIFICANT FATIGUE, MUCOUS LADEN RECTAL DISCHARGE, AND SURGICAL ABDOMINAL PAIN. HE REPORTS THAT HE HAS NOT BEEN PRESSING HIS TRUCK PACKER BUTTON DESPITE HAVING ABDOMINAL PAIN. Review of Systems General: No Chills; Fatigue, Malaise HEENT: Sore Throat Pulmonary: No Dyspnea; Cough Cardiovascular: No: Chest Pain, Palpitations Gastrointestinal: Abdominal Pain; No: Nausea Genitourinary: Other (GREEN IN PLACE DUE TO RETENTION) Neurological: Weakness; No: Confusion Objective Exam Last Set of Vital Signs Vital Signs Date Time Temp Pulse Resp B/P (MAP) Pulse Ox O2 Delivery O2 Flow Rate FiO2 09/29/19 08:00 35.6 97 16 166/92 (116) 94 Room Air Capillary Refill : I&O Intake and Output 09/29/19 00:00 Intake Total 0 ml Output Total 775 ml Balance -775 ml Intake Oral 0 ml Output Urine Total 600 ml Gastric Drainage Total 0 ml Drainage Total 175 ml # Bowel Movements 1 Daily Weight Change No General: Alert, Oriented X3, Cooperative, Mild Distress HEENT: Atraumatic, PERRLA Neck: Supple Lungs: Clear to Auscultation Heart: Regular Rate Abdomen: Soft, Other (SURGICAL SITE HEALING WELL, NO ERYTHEMA - SAMREEN IN PLACE) Extremities: No Cyanosis, No Edema Skin: Other (HEELS WITHOUT ERYTHEMA, GLUTEUS/SACRAL REGION WITH STAGE 1 PRES SURE STARTING) Neuro: Normal Speech, Cranial Nerves 3-12 NL Psych/Mental Status: Mental Status NL, Mood NL Results Lab Laboratory Tests 09/29/19 00:49: Glucometer 212H 09/29/19 05:44: Glucometer 169H 09/29/19 08:08: Sodium Level 144, Potassium Level 4.1, Chloride Level 116H, Carbon Dioxide Level 17L, Anion Gap 11, Blood Urea Nitrogen 20H, Creatinine 0.69, Estimat Glomerular Filtration Rate > 60, BUN/Creatinine Ratio 29, Glucose Level 232H, Calcium Level 8.1L, Corrected Calcium 9.1, Phosphorus Level 2.4, Magnesium Level 2.3, Total Bilirubin 0.7, Aspartate Amino Transf (AST/SGOT) 56H, Alanine Aminotransferase (ALT/SGPT) 55, Alkaline Phosphatase 150H, Total Protein 5.7L, Albumin 2.7L, Triglycerides Level 78 Assessment/Plan Assessment/Plan Assess & Plan/Chief Complaint EPIGASTRIC ABDOMINAL PAIN ACUTE CHOLECYSTITIS DUODENAL ULCER HYPERTENSION DIABETES MELLITUS ASTHMA LEUKOCYTOSIS URINARY RETENTION RIGHT ARM SWELLING DVT RIGHT UPPER ARM EPIGASTRIC ABDOMINAL PAIN DUE TO ACUTE CHOLECYSTITIS AND DUODENAL ULCER - ADMISSION PER DR. ZHENG, STATUS POST CHOLECYSTECTOMY WITH DUODENAL PATCH (DUODENAL ULCER FOUND DURING SURGERY) WITH PERSISTENT SMALL AMOUNT OF LEAKAGE - OCTREOTIDE ADDED ON 09/28/19 TO SEE IF THIS WILL HELP TO DRY UP THE BILIARY DRAINAGE BY SLOWING DOWN HIS GUT. - DISCUSSED WITH DR. ZHENG, DEPENDING ON HIS DRAIN OUTPUT, DR. ZHENG WILL DISCUSS HIS CASE WITH GI SPECIALIST IN [place] WITH POSSIBLE TRANSFER FOR COVERED DUODENAL STENT DEPLOYMENT IF THEY OFFER THIS PROCEDURE AT . - PT ON PROTONIX IV - PT NPO WITH NG TUBE IN PLACE - PT ON TPN HYPERTENSION - HOLD ORAL MEDICATIONS AT THIS TIME. - STARTED PRN IV METOPROLOL IF HIS SBP IS AT OR ABOVE 170. - IV HYDRALAZINE HAS BEEN SCHEDULED Q8 HOURS. DIABETES MELLITUS - HOLDING HOME MEDICATIONS DUE TO NPO STATUS ASTHMA - MONITOR SYMPTOMS - PT HAS BEEN STABLE IN HOSPITAL. LEUKOCYTOSIS - IMPROVED - CONTINUE WITH CURRENT MANAGEMENT. DVT RIGHT UPPER EXTREMITY - - PT ON LOVENOX DVT TREATMENT DOSE - HIS RIGHT ARM IS MUCH IMPROVED FROM INITIAL STUDY FOR DVT. STAGE 1 PRESSURE ULCER ON SACRUM - PT TO HAVE PROTECTIVE PAD PLACED TO HELP PREVENT FURTHER SKIN BREAK-DOWN. HE WILL ALSO BE TURNED Q 2 HOURS BY HOSPITAL STAFF TO HELP PROTECT HIS SKIN. PT IS OVERALL STABLE, HE HAS NOT BEEN USING HIS TRUCK PACKER FOR PAIN CONTROL - INSTEAD HE HAS BEEN "TOUGHING IT OUT" WHICH HAS BEEN FURTHER EXHAUSTING HIM. I HAVE ENCOURAGED VIC TO USE THE TRUCK PACKER SO THAT HE CAN GET BETTER REST AND HOPEFULLY GAIN A LITTLE MORE STRENGTH. Clinical Quality Measures DVT/VTE Risk/Contraindication: Risk Factor Score Per Nursin ARIA RAYMUNDO MD Sep 29, 2019 09:54 POS
[2019-09-29] MEDS ORDERED: SALIVA STIMULANT MOUTH SPRAY (BIOTENE) 1.5 OZ MM PRN (10:00)
[2019-09-29] MEDS ORDERED: CHLORASEPTIC LOZENGE MM PRN (10:00)
[2019-09-29 10:48] LABS: HEMOGLOBIN 12.8 G/DL (13.3-17.7); MEAN PLATELET VOLUME 9.5 FL (7.4-10.4); RED CELL DISTRIBUTION WIDTH 12.9 % (10.0-14.5); WHITE BLOOD COUNT 16.8 10^3/uL (4.3-11.0)
--- NOTE | 2019-09-29 11:56 | NUR ---
Initial visit by Silver Chaserpatricia Rivas: No sanjana affiliation discussed this visit. Silver Chaser engaged in rapport building and introduced pt to Spiritual Care Services. No urgent needs reported to pastoral department.
--- NOTE | 2019-09-29 13:12 | NUR ---
Received dietary consult. At this time, pt is on NPO status d/t perforated duodenum. Pt is currently receiving nutrition via TPN. Given current status of pt, TPN is preferred. Assessing the TPN order in the note on 09/27, the 3-in-1 solution at the rate of 77 ml/hr, the pt would receive 1580 kcal (25 kcal/kg) and 100 g Pro (1.6 g Pro/kg). This amount would provide the pt with adequate nutrition for recovery. Est kcal needs: 0932-9133 kcal (25-30 kcal/kg) Est pro needs: 73-92 g Pro (1.2-1.5 g Pro/kg) TPN recommendation: 2 L Clinimix AA 4.25/10 with 500 ml 10% lipids. Provides 1570 kcal (25 kcal/kg) and 85 g Pro (1.4 g Pro/kg) Will continue to follow and reassess the pt when oral or enteral nutrition is appropriate. Tammie Leonard, MS, RD, LD O: Ext 133
[2019-09-29] MEDS: FLUCONAZOLE 200 MG/100 ML 50 ML, EMPTY IV BAG (PVC) 1 EA IV SCH ×2 (14:16)
--- NOTE | 2019-09-29 16:12 | Diagnostic Imaging Report ---
INDICATION: Shortness of breath, cough. TECHNIQUE: Single-view chest at 02:13 p.m. CORRELATION STUDY: 09/28/2019. FINDINGS: Gastric tube remains in place with tip in the likely lateral fundal aspect of the stomach. Left-sided central line tip over the low SVC. Heart size and mediastinum appear generally stable. Vasculature is perhaps slightly more prominent. Additionally, there appears to be increasing combination of effusion along with consolidation at the right lung base. Minimal discoid atelectasis at the left lung base. IMPRESSION: 1. Vasculature appears perhaps slightly increased from prior study. 2. Increased combination of effusion along with consolidation at the right lung base. Dictated by: Dictated on workstation # [id number]
[2019-09-29] MEDS ORDERED: SODIUM ACETATE IV SCH ×24 (17:00)
[2019-09-29] MEDS ORDERED: [UNRECOGNIZED DRUG - OTHER] IV SCH ×13 (17:00)
[2019-09-29] MEDS ORDERED: SODIUM PHOSPHATE IV SCH ×11 (17:00)
[2019-09-29] MEDS ORDERED: [UNRECOGNIZED DRUG - OTHER] IV SCH ×11 (17:00)
[2019-09-29] MEDS ORDERED: POTASSIUM CHLORIDE IV SCH ×24 (17:00)
[2019-09-29] MEDS: 1/2 NS IV SOLUTION 1,000 ML IV SCH (17:03)
--- NOTE | 2019-09-29 17:59 | Progress Note - Surgery ---
Subjective Date Seen by a Provider: Sep 29, 2019 Time Seen by a Provider: 08:30 Subjective/Events-last exam Patient feeling fatigued and weak. 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 Still with bile tinged output from drain and other serosang. On tpn. Ng tube in place. Denies n/v fever sweats chills shortness of breath or chest pain. Objective Exam Vital Signs Date Time Temp Pulse Resp B/P (MAP) Pulse Ox O2 Delivery O2 Flow Rate FiO2 09/29/19 16:10 36.1 93 20 151/81 (104) 96 Room Air 09/29/19 12:54 90 09/29/19 12:00 37.2 96 18 155/82 (106) 96 Room Air 09/29/19 09:00 Room Air 09/29/19 08:00 35.6 97 16 166/92 (116) 94 Room Air 09/29/19 07:30 18 09/29/19 06:55 88 09/29/19 04:00 37.0 87 18 135/76 (95) 96 Room Air 09/29/19 01:00 83 09/29/19 00:30 36.8 89 16 132/75 (94) 95 Room Air 09/28/19 21:00 18 09/28/19 21:00 Room Air 09/28/19 20:57 36.2 82 18 117/79 (92) 97 Room Air 09/28/19 20:01 91 I & O 09/29/19 07:00 Intake Total 0 ml Output Total 1700 ml Balance -1700 ml Capillary Refill : General Appearance: No Apparent Distress HEENT: PERRL/EOMI Neck: Supple Respiratory: Chest Non Tender, No Accessory Muscle Use, No Respiratory Distress Cardiovascular: Regular Rate, Rhythm Gastrointestinal: soft, tenderness (incisional, drain bile tinged and other serosang) Extremity: Non Tender, No Calf Tenderness Neurologic/Psychiatric: Alert, Oriented x3 Skin: Normal Color Lymphatic: No Adenopathy Results Lab Laboratory Tests 09/29/19 00:49: Glucometer 212H 09/29/19 05:44: Glucometer 169H 09/29/19 08:08: Sodium Level 144, Potassium Level 4.1, Chloride Level 116H, Carbon Dioxide Level 17L, Anion Gap 11, Blood Urea Nitrogen 20H, Creatinine 0.69, Estimat Glomerular Filtration Rate > 60, BUN/Creatinine Ratio 29, Glucose Level 232H, Calcium Level 8.1L, Corrected Calcium 9.1, Phosphorus Level 2.4, Magnesium Level 2.3, Total Bilirubin 0.7, Aspartate Amino Transf (AST/SGOT) 56H, Alanine Aminotransferase (ALT/SGPT) 55, Alkaline Phosphatase 150H, Total Protein 5.7L, Albumin 2.7L, Triglycerides Level 78 09/29/19 10:15: White Blood Count 16.8H, Red Blood Count 4.18L, Hemoglobin 12.8L, Hematocrit 39L , Mean Corpuscular Volume 94, Mean Corpuscular Hemoglobin 31, Mean Corpuscular Hemoglobin Concent 33, Red Cell Distribution Width 12.9, Platelet Count 300, Mean Platelet Volume 9.5 09/29/19 12:08: Glucometer 246H Assessment/Plan Assessment/Plan Assessment/Plan s/p lap kareen c ioc and haily patch for duodenal perforation right upper extremity dvt urinary retention started octreotide to decrease secretions npo continue abx on Lovenox for DVT I talked to DR. Brenner at and did have some options if not resolved. If no improvement by Wednesday will discuss transfer. Clinical Quality Measures DVT/VTE Risk/Contraindication: Risk Factor Score Per Nursin KATHLEEN ZHENG DO Sep 29, 2019 17:59 POS
[2019-09-30] MEDS: inSUlin ASPART (NovoLOG) 1 UNIT/0.01 ML (CHARGE PER UNIT) SQ SCH ×4 (00:15→18:00)
[2019-09-30] MEDS: ENOXAPARIN 60 MG/0.6 ML (LOVENOX) SYR SC SCH ×2 (01:44→13:01)
[2019-09-30 03:55] VITALS: BP 169/70
[2019-09-30] MEDS: OCTREOTIDE INJECTION 500 MCG in NS (IVPB) 99 ML IV SCH ×3 (04:32→23:56)
[2019-09-30] MEDS: hydrALAZINE (APESOLINE) 20 MG/ML VIAL IV SCH ×3 (05:55→22:48)
[2019-09-30 08:00] VITALS: BP 176/76
[2019-09-30] MEDS: PIPERACILLIN/TAZOBACTAM (BULK) 4.5 GM in NS (IVPB) 100 ML IV SCH ×2 (08:04→16:51)
[2019-09-30] MEDS: PANTOPRAZOLE 40 MG (PROTONIX) VIAL IV SCH ×2 (08:04→19:38)
[2019-09-30 08:51] LABS: ALANINE AMINOTRANSFERASE 51 U/L (0-55); ALBUMIN 2.4 GM/DL (3.2-4.5); ALKALINE PHOSPHATASE 118 U/L (40-136); BILIRUBIN,TOTAL 0.9 MG/DL (0.1-1.0); BUN/CREATININE RATIO 28; CALCIUM 7.7 MG/DL (8.5-10.1); CARBON DIOXIDE 22 MMOL/L (21-32); CHLORIDE 113 MMOL/L (98-107); CREATININE SERUM 0.65 MG/DL (0.60-1.30); GFR ESTIMATED > 60; GLUCOSE 195 MG/DL (70-105); MAGNESIUM 2.2 MG/DL (1.6-2.4); PHOSPHORUS 2.3 MG/DL (2.3-4.7); SODIUM 143 MMOL/L (135-145); TOTAL PROTEIN 5.3 GM/DL (6.4-8.2)
--- NOTE | 2019-09-30 09:31 | NUR ---
TPN: PT NPO, TPN AT 99 ML/HR PROVIDING 1750 KCAL WITH 100 GM PROTEIN. 0.45% AT 25 ML/HR. CONTINUE SAME, ADJUST LYTES AND INSULIN NEEDED.
--- NOTE | 2019-09-30 10:59 | Progress Note - Surgery ---
Subjective Date Seen by a Provider: Sep 30, 2019 Time Seen by a Provider: 10:57 Subjective/Events-last exam Pain better controlled. Npo. On tpn. No new complaints. Drains serous today. Denies n/v fever sweats chills shortness of breath or chest pain. Objective Exam Vital Signs Date Time Temp Pulse Resp B/P (MAP) Pulse Ox O2 Delivery O2 Flow Rate FiO2 09/30/19 08:12 Room Air 09/30/19 08:00 37.0 82 24 176/76 (109) 95 Room Air 09/30/19 07:00 84 09/30/19 05:09 18 09/30/19 03:55 37.0 88 20 169/70 (103) 95 Room Air 09/30/19 01:00 76 09/29/19 23:50 36.9 86 18 177/73 (107) 95 Room Air 09/29/19 20:00 Room Air 09/29/19 19:53 36.2 89 18 168/76 (106) 95 Room Air 09/29/19 19:00 92 09/29/19 16:10 36.1 93 20 151/81 (104) 96 Room Air 09/29/19 12:54 90 09/29/19 12:00 37.2 96 18 155/82 (106) 96 Room Air I & O 09/30/19 07:00 Intake Total 610 ml Output Total 2485 ml Balance -1875 ml Capillary Refill : General Appearance: No Apparent Distress HEENT: PERRL/EOMI Neck: Supple Respiratory: Chest Non Tender, No Accessory Muscle Use, No Respiratory Distress Cardiovascular: Regular Rate, Rhythm Gastrointestinal: soft, tenderness (incisional and c/d/i, drains serous) Extremity: Non Tender, No Calf Tenderness Neurologic/Psychiatric: Alert, Oriented x3 Skin: Normal Color Lymphatic: No Adenopathy Results Lab Laboratory Tests 09/29/19 12:08: Glucometer 246H 09/29/19 18:04: Glucometer 177H 09/30/19 00:12: Glucometer 196H 09/30/19 05:37: Glucometer 161H 09/30/19 08:12: Sodium Level 143, Potassium Level 4.0, Chloride Level 113H, Carbon Dioxide Level 22, Anion Gap 8, Blood Urea Nitrogen 18, Creatinine 0.65, Estimat Glomerular Filtration Rate > 60, BUN/Creatinine Ratio 28, Glucose Level 195H, Calcium Level 7.7L, Corrected Calcium 9.0, Phosphorus Level 2.3, Magnesium Level 2.2, Total Bilirubin 0.9, Aspartate Amino Transf (AST/SGOT) 35H, Alanine Aminotransferase (ALT/SGPT) 51, Alkaline Phosphatase 118, Total Protein 5.3L, Albumin 2.4L Assessment/Plan Assessment/Plan Assessment/Plan s/p lap kareen c ioc and haily patch for duodenal perforation right upper extremity dvt urinary retention on octreotide to decrease secretions npo continue abx on Lovenox for DVT I talked to DR. Brenner at and did have some options if not resolved. If no improvement by Wednesday will discuss transfer. Clinical Quality Measures DVT/VTE Risk/Contraindication: Risk Factor Score Per Nursin KATHLEEN ZHENG DO Sep 30, 2019 10:59 POS
[2019-09-30 12:00] VITALS: BP 178/75
[2019-09-30] MEDS: meTOprolol 5 MG/5 ML (LOPRESSOR) VIAL IV PRN ×3 (13:41→20:44)
[2019-09-30] MEDS: FLUCONAZOLE 200 MG/100 ML 50 ML, EMPTY IV BAG (PVC) 1 EA IV SCH ×2 (13:41)
[2019-09-30 16:30] VITALS: BP 169/74
[2019-09-30] MEDS: [UNRECOGNIZED DRUG - OTHER] IV SCH ×13 (16:58)
[2019-09-30] MEDS: SODIUM ACETATE IV SCH ×13 (16:58)
[2019-09-30] MEDS: POTASSIUM CHLORIDE IV SCH ×13 (16:58)
[2019-09-30] MEDS: 1/2 NS IV SOLUTION 1,000 ML IV SCH (17:01)
[2019-09-30 20:25] VITALS: BP 175/72
[2019-10-01] VITALS (8 sets, daily range): BP systolic 168–195; BP diastolic 5–81
[2019-10-01] MEDS: PIPERACILLIN/TAZOBACTAM (BULK) 4.5 GM in NS (IVPB) 100 ML IV SCH ×3 (00:30→17:21)
[2019-10-01] MEDS: inSUlin ASPART (NovoLOG) 1 UNIT/0.01 ML (CHARGE PER UNIT) SQ SCH ×4 (00:39→17:48)
[2019-10-01] MEDS: ENOXAPARIN 60 MG/0.6 ML (LOVENOX) SYR SC SCH ×2 (01:25→13:09)
[2019-10-01] MEDS: meTOprolol 5 MG/5 ML (LOPRESSOR) VIAL IV PRN ×3 (04:21→19:41)
[2019-10-01] MEDS: hydrALAZINE (APESOLINE) 20 MG/ML VIAL IV SCH ×3 (06:09→23:02)
--- NOTE | 2019-10-01 07:48 | Diagnostic Imaging Report ---
CHEST 1 VIEW, AP/PA ONLY INDICATION: Cough. COMPARISON: 09/29/2019 FINDINGS: Stable left PICC. Stable enteric tube. Right basilar pulmonary opacities and small pleural effusion are unchanged. Stable heart size. No pneumothorax. A skin fold is present in the right lung base. IMPRESSION: 1. Stable small right pleural effusion or right basilar pulmonary opacities. Dictated by: Dictated on workstation # [id number]
[2019-10-01] MEDS: PANTOPRAZOLE 40 MG (PROTONIX) VIAL IV SCH ×2 (08:36→19:32)
[2019-10-01] MEDS: OCTREOTIDE INJECTION 500 MCG in NS (IVPB) 99 ML IV SCH ×2 (09:51→20:31)
--- NOTE | 2019-10-01 11:32 | Progress Note - Surgery ---
BETTY ZAVALETA,MED STUDENT 10/01/19 1132: Subjective Date Seen by a Provider: Oct 01, 2019 Time Seen by a Provider: 08:35 Subjective/Events-last exam Patient seen and examined. He has no new complaints or concerns today and says his pain slowly continues to improve. He has not had a BM in two days, but urine output is good with perez in place. He is not using IS currently because he notes he "needs to rest for a little bit". Both drains with minimal serous output, no bile tinge. Denies chest pain, SOB, n/v/d. Objective Exam Vital Signs Date Time Temp Pulse Resp B/P (MAP) Pulse Ox O2 Delivery O2 Flow Rate FiO2 10/01/19 09:00 Room Air 10/01/19 08:00 37.0 78 22 169/76 (107) 95 Room Air 10/01/19 07:00 74 10/01/19 06:20 18 10/01/19 06:09 71 168/71 (103) 10/01/19 04:10 37.0 79 20 184/78 (113) 92 Room Air 10/01/19 01:00 71 10/01/19 00:20 36.0 76 20 175/5 (61) 94 Room Air 09/30/19 20:25 36.7 78 22 175/72 (106) 94 Room Air 09/30/19 20:13 Room Air 09/30/19 19:00 78 09/30/19 17:29 20 09/30/19 16:30 37.0 79 22 169/74 (105) 95 Room Air 09/30/19 13:00 83 09/30/19 12:00 36.4 77 22 178/75 (109) 94 Room Air I & O 10/01/19 07:00 Intake Total 3216.9167 ml Output Total 2863 ml Balance 353.9167 ml Capillary Refill : General Appearance: No Apparent Distress HEENT: PERRL/EOMI; No Scleral Icterus (L), No Scleral Icterus (R) Neck: Supple Respiratory: Chest Non Tender, Normal Breath Sounds, No Accessory Muscle Use, No Respiratory Distress; No Rhonci, No Wheezing Cardiovascular: Regular Rate, Rhythm, No Murmur, Normal Peripheral Pulses Peripheral Pulses: 2+ Dorsalis Pedis (R), 2+ Left Dors-Pedis (L), 2+ Radial Pulses (R), 2+ Radial Pulses (L) Gastrointestinal: soft, no pulsatile mass; No distended; tenderness (incisional and c/d/i, drains serous) Extremity: Non Tender, No Calf Tenderness, No Pedal Edema Neurologic/Psychiatric: Alert, Oriented x3, Normal Mood/Affect Skin: Normal Color, Warm/Dry Lymphatic: No Adenopathy Results Lab Laboratory Tests 09/30/19 12:51: Glucometer 207H 09/30/19 17:26: Glucometer 134H 10/01/19 00:30: Glucometer 186H 10/01/19 05:27: Glucometer 152H Assessment/Plan Assessment/Plan Assessment/Plan s/p lap kareen c ioc and haily patch for duodenal perforation right upper extremity dvt urinary retention continue octreotide to decrease GI secretions continue NPO continue abx on Lovenox for DVT will repeat gastrograffin study tomorrow Clinical Quality Measures DVT/VTE Risk/Contraindication: Risk Factor Score Per Nursin KATHLEEN ZHENG DO 10/01/19 1233: Subjective Subjective/Events-last exam Patient no new complaints. Pain controlled. NPO. NG tube in place. Drains serous appearing. TPN Objective Exam General Appearance: No Apparent Distress HEENT: PERRL/EOMI Respiratory: Chest Non Tender, No Accessory Muscle Use, No Respiratory Distress Cardiovascular: Regular Rate, Rhythm Gastrointestinal: soft, no pulsatile mass, tenderness (incisional and c/d/i, drains serous) Extremity: Non Tender, No Calf Tenderness Neurologic/Psychiatric: Alert, Oriented x3, Normal Mood/Affect Skin: Normal Color, Warm/Dry Lymphatic: No Adenopathy Assessment/Plan Assessment/Plan Assessment/Plan s/p lap kareen c ioc and haily patch for duodenal perforation right upper extremity dvt urinary retention continue wiht abx and on octreotide to decrease secretions patient does not appear to have bile in drainage at this time will plan Gastrografin study tomorrow Supervisory-Addendum Brief Verification & Attestation Participated in pt care: history, MDM, physical Personally performed: exam, history, MDM, supervision of care Care discussed with: Medical Student Procedures: n/a Results interpretation: Verified all documentation Verification and Attestation of Medical Student E/M Service A medical student performed and documented this service in my presence. I reviewed and verified all information documented by the medical student and made modifications to such information, when appropriate. I personally performed the physical exam and medical decision making. Kathleen Zheng, Oct 01, 2019,12:33 BETTY ZAVALETA,MED STUDENT Oct 01, 2019 11:32 KATHLEEN GUTIERREZ DO Oct 01, 2019 12:33 POS
[2019-10-01] MEDS: FLUCONAZOLE 200 MG/100 ML 50 ML, EMPTY IV BAG (PVC) 1 EA IV SCH ×2 (13:58)
[2019-10-01] MEDS: POTASSIUM CHLORIDE IV SCH ×13 (17:23)
[2019-10-01] MEDS: SODIUM ACETATE IV SCH ×13 (17:23)
[2019-10-01] MEDS: [UNRECOGNIZED DRUG - OTHER] IV SCH ×13 (17:23)
[2019-10-01] MEDS ORDERED: hydrALAZINE (APESOLINE) 20 MG/ML VIAL IV PRN (17:45)
[2019-10-02] VITALS (7 sets, daily range): BP systolic 143–180; BP diastolic 64–83
[2019-10-02] MEDS: PIPERACILLIN/TAZOBACTAM (BULK) 4.5 GM in NS (IVPB) 100 ML IV SCH ×2 (00:24→08:13)
[2019-10-02] MEDS: ENOXAPARIN 60 MG/0.6 ML (LOVENOX) SYR SC SCH ×2 (00:40→12:21)
[2019-10-02] MEDS: inSUlin ASPART (NovoLOG) 1 UNIT/0.01 ML (CHARGE PER UNIT) SQ SCH ×4 (00:40→18:05)
[2019-10-02] MEDS: hydrALAZINE (APESOLINE) 20 MG/ML VIAL IV SCH ×3 (06:31→22:41)
[2019-10-02] MEDS: PANTOPRAZOLE 40 MG (PROTONIX) VIAL IV SCH ×2 (08:08→20:22)
[2019-10-02] MEDS: 1/2 NS IV SOLUTION 1,000 ML IV SCH ×2 (08:12→17:28)
--- NOTE | 2019-10-02 08:14 | Progress Note ---
Subjective Date Seen by a Provider: Oct 02, 2019 Time Seen by a Provider: 08:30 Objective Exam Last Set of Vital Signs Vital Signs Date Time Temp Pulse Resp B/P (MAP) Pulse Ox O2 Delivery O2 Flow Rate FiO2 10/02/19 07:00 81 10/02/19 06:31 143/67 (92) 10/02/19 05:40 18 10/02/19 04:00 36.4 92 Room Air Capillary Refill : I&O Intake and Output 10/02/19 00:00 Intake Total 100 ml Output Total 2839 ml Balance -2739 ml Intake Oral 0 ml IV Total 100 ml Output Urine Total 2500 ml Gastric Drainage Total 225 ml Drainage Total 114 ml Results Lab Laboratory Tests 10/01/19 12:10: Glucometer 222H 10/01/19 17:21: Glucometer 169H 10/02/19 00:36: Glucometer 196H 10/02/19 05:35: Glucometer 157H Assessment/Plan Assessment/Plan Assess & Plan/Chief Complaint EPIGASTRIC ABDOMINAL PAIN ACUTE CHOLECYSTITIS DUODENAL ULCER HYPERTENSION DIABETES MELLITUS ASTHMA LEUKOCYTOSIS URINARY RETENTION RIGHT ARM SWELLING DVT RIGHT UPPER ARM EPIGASTRIC ABDOMINAL PAIN DUE TO ACUTE CHOLECYSTITIS AND DUODENAL ULCER - ADMISSION PER DR. ZHENG, STATUS POST CHOLECYSTECTOMY WITH DUODENAL PATCH (DUODENAL ULCER FOUND DURING SURGERY) WITH PERSISTENT SMALL AMOUNT OF LEAKAGE - OCTREOTIDE ADDED ON 09/28/19 TO SEE IF THIS WILL HELP TO DRY UP THE BILIARY DRAINAGE BY SLOWING DOWN HIS GUT. - DISCUSSED WITH DR. ZHENG, DEPENDING ON HIS DRAIN OUTPUT, DR. ZHENG WILL DISCUSS HIS CASE WITH GI SPECIALIST IN [place] WITH POSSIBLE TRANSFER FOR COVERED DUODENAL STENT DEPLOYMENT IF THEY OFFER THIS PROCEDURE AT . - PT ON PROTONIX IV - PT NPO WITH NG TUBE IN PLACE - PT ON TPN HYPERTENSION - HOLD ORAL MEDICATIONS AT THIS TIME. - STARTED PRN IV METOPROLOL IF HIS SBP IS AT OR ABOVE 170. - IV HYDRALAZINE HAS BEEN SCHEDULED Q8 HOURS. DIABETES MELLITUS - HOLDING HOME MEDICATIONS DUE TO NPO STATUS ASTHMA - MONITOR SYMPTOMS - PT HAS BEEN STABLE IN HOSPITAL. LEUKOCYTOSIS - IMPROVED - CONTINUE WITH CURRENT MANAGEMENT. DVT RIGHT UPPER EXTREMITY - - PT ON LOVENOX DVT TREATMENT DOSE - HIS RIGHT ARM IS MUCH IMPROVED FROM INITIAL STUDY FOR DVT. STAGE 1 PRESSURE ULCER ON SACRUM - PT TO HAVE PROTECTIVE PAD PLACED TO HELP PREVENT FURTHER SKIN BREAK-DOWN. HE WILL ALSO BE TURNED Q 2 HOURS BY HOSPITAL STAFF TO HELP PROTECT HIS SKIN. PT IS OVERALL STABLE, HE HAS NOT BEEN USING HIS SHINGLE SAWYER FOR PAIN CONTROL - INSTEAD HE HAS BEEN "TOUGHING IT OUT" WHICH HAS BEEN FURTHER EXHAUSTING HIM. I HAVE ENCOURAGED VIC TO USE THE SHINGLE SAWYER SO THAT HE CAN GET BETTER REST AND HOPEFULLY GAIN A LITTLE MORE STRENGTH. Clinical Quality Measures DVT/VTE Risk/Contraindication: Risk Factor Score Per Nursin ARIA RAYMUNDO MD Oct 02, 2019 08:14 POS
--- NOTE | 2019-10-02 09:00 | Progress Note - Surgery ---
BETTY ZAVALETA,MED STUDENT 10/02/19 0900: Subjective Date Seen by a Provider: Oct 02, 2019 Time Seen by a Provider: 08:15 Subjective/Events-last exam Patient seen and examined. He is doing well today and has no new complaints. He says his incisions are only mildly tender. He had a bowel movement this morning, and urine output is good with perez in place. He notes he is using his IS again. Drain #1 had 25mL overnight, drain #2 had minimal output, and fluid was serous with no bile tinge. Objective Exam Vital Signs Date Time Temp Pulse Resp B/P (MAP) Pulse Ox O2 Delivery O2 Flow Rate FiO2 10/02/19 08:00 37.2 75 22 145/67 (93) 94 Room Air 10/02/19 07:00 81 10/02/19 06:31 79 143/67 (92) 10/02/19 05:40 18 10/02/19 04:00 36.4 79 2 149/64 (92) 92 Room Air 10/02/19 00:52 76 10/02/19 00:00 36.8 94 20 146/65 (92) 94 Room Air 10/01/19 22:30 75 168/67 (100) 10/01/19 20:00 Room Air 10/01/19 19:53 36.7 80 20 195/81 (119) 94 Room Air 10/01/19 19:00 75 10/01/19 18:00 18 10/01/19 16:00 37.2 79 24 183/74 (110) 94 Room Air 10/01/19 13:00 76 10/01/19 12:00 37.4 79 20 177/79 (111) 94 Room Air 10/01/19 09:00 Room Air I & O 10/02/19 07:00 Intake Total 100 ml Output Total 2724 ml Balance -2624 ml Capillary Refill : General Appearance: No Apparent Distress HEENT: PERRL/EOMI; No Moist Mucous Membranes Neck: Supple Respiratory: Chest Non Tender, No Accessory Muscle Use, No Respiratory Distress Cardiovascular: Regular Rate, Rhythm, No Murmur Peripheral Pulses: 2+ Dorsalis Pedis (R), 2+ Left Dors-Pedis (L), 2+ Radial Pulses (R), 2+ Radial Pulses (L) Gastrointestinal: soft, no pulsatile mass; No distended, No guarding; tenderness (incisional and c/d/i, drains serous) Extremity: Non Tender, No Calf Tenderness Neurologic/Psychiatric: Alert, Oriented x3, Normal Mood/Affect Skin: Normal Color, Warm/Dry Lymphatic: No Adenopathy Results Lab Laboratory Tests 10/01/19 12:10: Glucometer 222H 10/01/19 17:21: Glucometer 169H 10/02/19 00:36: Glucometer 196H 10/02/19 05:35: Glucometer 157H Assessment/Plan Assessment/Plan Assessment/Plan s/p lap kareen c ioc and haily patch for duodenal perforation right upper extremity dvt urinary retention continue abx and octreotide to reduce secretions continue IS use NG tube in place perez in place will repeat gastrograffin study today Clinical Quality Measures DVT/VTE Risk/Contraindication: Risk Factor Score Per Nursin KATHLEEN ZHENG DO 10/02/19 1502: Subjective Subjective/Events-last exam Patient with Gastrografin study today, still with small leak. Patient pain is tolerable he states. NPO. On TPN. Denies n/v fever sweats chills shortness of breath or chest pain. Drains serous. Patient wanting to be able to eat. He is wanting to go to since still with small leak to try to have endoscopic closure as we discussed options previously. Objective Exam General Appearance: No Apparent Distress HEENT: PERRL/EOMI Respiratory: Chest Non Tender Cardiovascular: Regular Rate, Rhythm Gastrointestinal: soft, no pulsatile mass, tenderness (incisional and c/d/i, drains serous) Extremity: Non Tender, No Calf Tenderness Neurologic/Psychiatric: Alert Skin: Normal Color, Warm/Dry, Other (stage 1 pressure ulcer) Lymphatic: No Adenopathy Assessment/Plan Assessment/Plan Assessment/Plan s/p lap kareen c ioc and haily patch for duodenal perforation right upper extremity dvt urinary retention stage 1 pressure ulcer htn On Zosyn and Fluconizole and octreotide drip. Protonix BID continue IS use NG tube in place perez discontinue, replace if urinary retention not resolved Gastrografin study today still with small leak. I discussed with DR. Brenner at GI and will try endoscopic closure for rest of opening. Keep drains Discussed with patient who would like to be transferred and agrees with plan. On Lovenox for DVT Arrange transfer. Supervisory-Addendum Brief Verification & Attestation Participated in pt care: history, MDM, physical Personally performed: exam, history, MDM, supervision of care Care discussed with: Medical Student Procedures: n/a Results interpretation: Verified all documentation Verification and Attestation of Medical Student E/M Service A medical student performed and documented this service in my presence. I reviewed and verified all information documented by the medical student and made modifications to such information, when appropriate. I personally performed the physical exam and medical decision making. Kathleen Zheng, Oct 02, 2019,15:02 BETTY ZAVALETA,MED STUDENT Oct 02, 2019 09:00 KATHLEEN GUTIERREZ DO Oct 02, 2019 15:02 POS
[2019-10-02] MEDS: OCTREOTIDE INJECTION 500 MCG in NS (IVPB) 99 ML IV SCH ×2 (09:42→16:25)
[2019-10-02] MEDS ORDERED: DIATRIZOATE MEGLUM/SODIUM 37% 120 ML (GASTROGRAFIN) NG ONE (13:30)
--- NOTE | 2019-10-02 13:56 | Diagnostic Imaging Report ---
INDICATION: Duodenal perforation, status post patch. COMPARISON: Correlation is made with recent small bowel study from 09/26/2019. FINDINGS: A small amount of Gastrografin contrast mixed with water was injected through the patient's indwelling nasogastric tube. Serial radiographs over the abdomen were obtained. There has been significant improved appearance to the area of perforation involving the duodenal bulb when compared with prior exam. The degree of extravasation has significantly reduced. There is a very small extraluminal collection of contrast projected just cephalad to the duodenal bulb measuring approximately 16 mm in size consistent with some minimal residual contained extravasated contrast consistent with a small contained perforation. No free flowing contrast into the gallbladder fossa is seen on today's study. Contrast does pass beyond this point into the small bowel. There is normal progression of contrast through the small bowel. No obstruction is seen. There are midline skin tiara noted. There are overlying surgical drains. IMPRESSION: Small contained perforation from the duodenal bulb, as described. This is significantly improved when compared with prior small bowel study 6 days earlier. Dictated by: Dictated on workstation # [id number]
[2019-10-02] MEDS: FLUCONAZOLE 200 MG/100 ML 50 ML, EMPTY IV BAG (PVC) 1 EA IV SCH ×2 (16:25)
[2019-10-02] MEDS: SODIUM ACETATE IV SCH ×13 (16:34)
[2019-10-02] MEDS: POTASSIUM CHLORIDE IV SCH ×13 (16:34)
[2019-10-02] MEDS: [UNRECOGNIZED DRUG - OTHER] IV SCH ×13 (16:34)
[2019-10-02] MEDS: meTOprolol 5 MG/5 ML (LOPRESSOR) VIAL IV PRN (17:32)
--- NOTE | 2019-10-02 18:00 | NUR ---
VOIDED IN BSC WITH MOD AMT LOOSE BILE-LIKE STOOL.
--- NOTE | 2019-10-02 22:35 | NUR ---
PT TRANSFERRING TO PER [facility]. REPORT CALLED TO JOSH LUGO. PT ALSO CALLED AT THIS TIME AND INFORMED PT WOULD BE TRANSFERRING TO [facility]. STATES UNDERSTANDING.
--- NOTE | 2019-10-02 23:00 | NUR ---
[facility] HERE TO TRANSFER PT. NG TUBE CLAMPED. TPN AND SANDSTAIN IV TRANSFER WITH PT. FENTANYL CADD DC. 90ML FENTANYL WASTED. VERIFIED BY HUMAIRA LUGO. PT PERSONAL BELONGINGS GIVEN TO EMS.
== END 2019-10-02 23:00 | disposition short-term general hospital (02) | DRG 949 ==
LOC: 4TH 18:45
PROVIDERS: ADMIT Family Medicine; ATTEND Family Medicine
DX: Z48.815 Encounter for surgical aftercare following surgery on the digestive system (principal); K91.89 Other postprocedural complications and disorders of digestive system; I82.621 Acute embolism and thrombosis of deep veins of right upper extremity; L89.151 Pressure ulcer of sacral region, stage 1; I10 Essential (primary) hypertension; E11.9 Type 2 diabetes mellitus without complications; K21.9 Gastro-esophageal reflux disease without esophagitis; N40.1 Benign prostatic hyperplasia with lower urinary tract symptoms; R33.9 Retention of urine, unspecified; J45.909 Unspecified asthma, uncomplicated; D72.829 Elevated white blood cell count, unspecified; Z87.11 Personal history of peptic ulcer disease
CPT/HCPCS: 36415; 71045; 74250; 80053; 82962; 83735; 84100; 84478; 85027